=== PATIENT | female | born 1935 | race Caucasian/White ===

== ENCOUNTER 2020-08-15 10:02 | Outpatient (REF) | payer MEDICARE, SELFPAY ==
--- NOTE | 2020-08-15 10:08 | XR_ITS ---
EXAMINATION: XR KNEES, STANDING AP XR KNEE, LEFT CLINICAL INFORMATION: Pain left knee. COMPARISON: None TECHNIQUE: Standing AP view of both knees is performed. Additional lateral and axial patella views of the left knee are obtained. FINDINGS: Left knee shows narrowing medial compartment. There is borderline marginal spur medial tibial plateau. There is no definite erosive change and no visible chondrocalcinosis. Lateral view shows small suprapatellar effusion. The bony mineralization is normal. There is no destructive process. Axial view patella shows no lateralization or tilting. The right knee is unremarkable. No significant joint narrowing and no subchondral sclerosis or erosive change. IMPRESSION: Mild narrowing left medial knee joint compartment with small suprapatellar effusion.
== END 2020-08-15 10:03 | disposition home or self-care (01) ==
LOC: HO.XRAY 10:02
PROVIDERS: Visit Provider Orthopaedic Surgery
DX: M25.562 Pain in left knee (principal); M17.12 Unilateral primary osteoarthritis, left knee
CPT/HCPCS: 20610; 73560; 73565; 99202; 99204; J1100

== ENCOUNTER → 2020-09-19 12:20 | Outpatient (BNVA) | payer MEDICARE, SELFPAY | PROVIDERS: PCP Internal Medicine; Referring Provider Internal Medicine; Visit Provider Orthopaedic Surgery | DX: M95.8 Other specified acquired deformities of musculoskeletal system (principal); M17.12 Unilateral primary osteoarthritis, left knee | CPT/HCPCS: 99212 ==

== ENCOUNTER 2020-09-23 08:49 | Outpatient (REF) | payer MEDICARE, SELFPAY ==
--- NOTE | 2020-09-23 08:52 | MR_ITS ---
EXAMINATION: MR KNEE WITHOUT CONTRAST, LEFT CLINICAL INFORMATION: Congenital malformation of the lower limb. 3 weeks of sore left knee. No history of surgery. COMPARISON: None TECHNIQUE: MRI of the knee without contrast was performed using routine sequences on a high-field scanner. FINDINGS: MENISCI: Medial Meniscus: A complex tear of the posterior horn and body is primarily horizontal, extending the undersurface. Meniscal body is partially extruded. There is an undersurface flap fragment within the meniscotibial recess inferiorly. The posterior horn is markedly irregular and ill-defined at the root insertion, likely corresponding to a radial component. Lateral Meniscus: Marked undersurface fraying at the posterior horn near the root insertion. Additional free edge fraying is present at the body. LIGAMENTS: Cruciate: No discrete tears. Collateral: Edema signal around the MCL is likely reactive to the underlying meniscal abnormality. Collateral ligaments are intact. EXTENSOR MECHANISM: Intact ARTICULAR CARTILAGE/BONE: Patellofemoral Compartment: Mild to moderate nonuniform chondral thinning is present at the median ridge of the patella. At the inferior aspect of the trochlear groove, there is a 1.6 x 0.8 cm region of moderate partial-thickness cartilage loss and full-thickness chondral fissuring with underlying articular cortical irregularity. Medial Compartment: At the medial femoral condyle weightbearing surface, there is a a subchondral insufficiency fracture with an unstable 3 x 0.9 cm delaminated osteochondral fragment. Fluid signal undercuts this fragment. There is a cortical break along its lateral margin with step-off of 1 mm. This cortical break extends through the articular cartilage is a chondral fissure. There is marked surrounding marrow edema signal in the medial femoral condyle with cystic change and posteriorly. [id number] nonuniform articular cartilage loss is present at the medial femoral condyle medial tibial plateau weightbearing surfaces, most pronounced posteriorly. Lateral Compartment: Normal JOINT FLUID AND BURSAE: Small to moderate-sized joint effusion and Tejeda's cyst. MR/MR knee LT wo con IMPRESSION: 1. Complex, high-grade tear of the posterior horn and body of the medial meniscus with partial extrusion of the meniscal body. 2. Subchondral insufficiency fracture at the medial femoral condyle with a 3 x 0.9 cm of unstable osteochondral fragmentation/delamination and marked surrounding marrow edema. Moderate medial compartment arthrosis. 3. Mild patellofemoral compartment osteoarthritis. 4. Small to moderate-sized joint effusion and Tejeda's cyst
== END 2020-09-23 08:50 | disposition home or self-care (01) ==
LOC: HO.MRI 08:49
PROVIDERS: Visit Provider Orthopaedic Surgery
DX: M95.8 Other specified acquired deformities of musculoskeletal system (principal); Q74.2 Other congenital malformations of lower limb(s), including pelvic girdle
CPT/HCPCS: 73721

== ENCOUNTER → 2021-01-16 10:10 | Outpatient (BNVA) | payer MEDICARE, SELFPAY | PROVIDERS: Visit Provider Orthopaedic Surgery | DX: M17.12 Unilateral primary osteoarthritis, left knee (principal) | CPT/HCPCS: 20610; 99212; J1100 ==

== ENCOUNTER 2021-05-21 12:38 | Emergency (ER) | payer MEDICARE, SELFPAY ==
--- NOTE | 2021-05-21 | ECG_ITS ---
Test Reason : NAUSEA Blood Pressure : / mmHG Vent. Rate : 092 BPM Atrial Rate : 092 BPM P-R Int : 182 ms QRS Dur : 114 ms QT Int : 390 ms P-R-T Axes : 045 -72 011 degrees QTc Int : 482 ms Normal sinus rhythm Left axis deviation Low voltage QRS Right bundle branch block Abnormal ECG When compared with ECG of 08-SEP-2019 10:53, No significant change was found Referred By: Generic ED Physician Electronically Signed By:DINO CEVALLOS
[2021-05-21 13:01] VITALS: BP 168/83; PULSE 93; RESP 16; TEMP 36.2; O2SAT 98; BMI 22.6
--- NOTE | 2021-05-21 14:37 | ED_ITS ---
HPI - Nausea/Vomiting/Diarrhea General Chief complaint: Nausea/Vomiting/Diarrhea Stated complaint: NAUSEA DIARRHEA HIP PAIN Time Seen by Provider: 05/21/21 14:37 Source: patient Mode of arrival: ambulatory Limitations: no limitations History of Present Illness HPI Narrative: Patient with nausea and vomiting for past few days. She had this in the past with low sodium, potassium, magnesium. Now patient is on a diuretic with N/V/D and the concern is that she may have electrolyte abnormalities. MD elicited complaint: nausea, vomiting and diarrhea Pertinent past history: other (renal abnormalities and electrolyte abnormalities) Onset (ago): week(s) Description of vomiting: watery Description of diarrhea: semi-solid Associated nausea: Yes Associated abdominal pain: No Location of pain: none Exacerbating factors: other (HCTZ) Associated symptoms: weakness Related Data Home Medications Medication Instructions Recorded Confirmed amlodipine PO 08/15/20 09/19/20 gabapentin PO 08/15/20 09/19/20 amlodipine 10 mg-atorvastatin 20 1 tab PO DAILY 09/19/20 09/19/20 mg tablet methenamine hippurate 1 gram tablet 1 g PO BID 09/19/20 09/19/20 ondansetron 4 mg disintegrating 4 mg PO Q8H 09/19/20 09/19/20 tablet potassium chloride 10 mEq 10 meq PO DAILY 09/19/20 09/19/20 capsule,extended release pravastatin 20 mg tablet 20 mg PO DAILY 09/19/20 09/19/20 Previous Rx's Medication Instructions Recorded ondansetron HCl [Zofran] 4 mg PO Q8H PRN #10 tab 05/21/21 Allergies Allergy/AdvReac Type Severity Reaction Status Date / Time promethazine [PROMETHAZINE] AdvReac Unknown AGITATION Verified 09/19/20 13:04 Review of Systems Constitutional: Constitutional: Reports no additional constitutional c omplaints Eyes: Eyes: Reports no additional eye complaints ENT: Denies dizziness Cardiovascular: Cardiovascular: Reports no additional cardiovascular complaints Respiratory: Respiratory: Reports as per HPI Gastrointestinal: Gastrointestinal: Reports nausea Genitourinary: Genitourinary: Reports no additional female genitourinary complaints Musculoskeletal: Musculoskeletal: Reports no additional musculoskeletal complaints Integumentary/Breasts: Skin/Breast: Denies rash Neurologic: Reports system reviewed and no additional complaints, except as documented, Denies dizziness and Denies Sensory deficit (Neuro) Psychiatric: Psychiatric: Denies anxiety [facility] Past Medical History Medical History Arthritis of left knee Left knee pain Social History Social History Advance Directives: No Advance Directives Information Provided: Yes Current occupational status: retired Current occupation: [employer] Physical Exam Vital Signs: Vital Signs: Last Vital Signs Temp 97.2 F 05/21/21 13:01 Pulse 93 05/21/21 13:01 Resp 16 05/21/21 13:01 BP 168/83 H 05/21/21 13:01 Pulse Ox 98 05/21/21 13:01 Body Mass Index 22.6 Const: Other: elderly female General: healthy appearing Nutritional Appearance: average body habitus Orientation/consciousness: oriented to person and patient oriented x3 Limitations: no limitations HENMT: Head: Yes normal to inspection Ears: external ears normal General nose exam: Normal external nose present Mouth: Normal oral and palatal mucosa present and oropharynx normal Throat: Yes posterior oropharynx normal Eyes: General: appearance normal, both eyes and all related structures Neck: Other: supple Neck: Yes normal visual inspection Chest: Chest palpation & inspection: normal inspection of the chest Resp: Auscultation: clear to auscultation bilaterally Cardio: Jugular venous distension: no JVD Rate: regular rate Rhythm: regular rhythm Heart sounds: S1 normal heart sound present and S2 normal heart sound present GI: Inspection: Yes normal to inspection Palpation (GI): Soft to palpation, nontender and No hepatosplenomegaly present Auscultation: normal bowel sounds : General: Yes no CVA tenderness Back/Spine/Pelvis: Back: no CVA tenderness Skin: General skin exam: no rashes or lesions noted Neuro: General: oriented to person and patient oriented x3 Cranial nerves: Yes CN's II-XII intact bilaterally Motor exam (neuro): 5/5 motor strength present throughout Sensory Exam: No Sensory deficit (Neuro) Extrem: General: Yes normal to inspection Psych: Appearance: grossly normal Course Reevaluation(s) Reevaluation #1: patients labs are normal, will dc on zofran, clear liquid diet until diarhea stops Time: 15:42 MDM - Nausea/Vomiting/Diarrhea Lab Data Result diagrams: 05/21/21 15:09 05/21/21 15:09 Labs: Lab Results 05/21/21 05/21/21 05/21/21 Range/Units 15:09 15:09 15:09 WBC 4.8 (4.8-10.8) X10*3/uL RBC 3.92 L (4.20-5.50) X10*6/uL Hgb 13.2 (12.0-16.0) g/dl Hct 37.9 (37-47) % MCV 96.7 (80-98) fL MCH 33.7 H (27.0-33.0) pg MCHC 34.8 (31.0-35.0) g/dl RDW 11.9 (11.0-16.0) % Plt Count 194 (160-400) X10*3/uL MPV 9.2 L (9.4-12.3) fL Immature Gran % (Auto) 0.2 (0.0-0.4) % Neut % (Auto) 69.3 (45-73) % Lymph % (Auto) 22.3 (20-40) % [place] % (Auto) 7.2 (2-11) % Eos % (Auto) 0.6 (0-4) % Baso % (Auto) 0.4 (0-2) % Lymph # (Auto) 1.1 L (1.2-4.9) X10*3/uL [place] # (Auto) 0.4 (0.1-1.2) X10*3/uL Eos # (Auto) 0.0 (0.0-0.4) X10*3/uL Baso # (Auto) 0.0 (0.0-0.2) X10*3/uL Abs Immat Gran (auto) 0.01 (0.00-0.03) X10*3/uL Absolute Neuts (auto) 3.4 (2.0-8.3) X10*3/uL Absolute Nucleated RBC 0.000 (0.0-0.012) X10*3/uL Nucleated RBC % (auto) 0.0 (0.0-0.2) /100WBC Sodium 143 (135-145) mmol/L Potassium 4.4 (3.3-5.1) mmol/L Chloride 106 (96-108) mmol/L Carbon Dioxide 27 (22-29) mmol/L Anion Gap 14 (12-20) BUN 19 H (9-16) mg/dL Creatinine 0.80 (0.5-1.4) mg/dL Estim Creat Clear Calc 42.1 Estimated GFR > 60 Random Glucose 113 (60-115) mg/dL Calcium 9.5 9.4 (8.4-10.2) mg/dL Magnesium 1.8 (1.6-2.6) mg/dL Discharge Plan Discharge Clinical Impression: Gastroenteritis Patient Disposition: Home, Self-Care Instructions: Gastroenteritis (ED) Prescriptions: New ondansetron HCl [Zofran] 4 mg tablet 4 mg PO Q8H PRN (Reason: nausea and vomiting) Qty: 10 RF: 0 No Action amlodipine PO RF: 0 gabapentin PO RF: 0 potassium chloride 10 mEq capsule, extended release 10 meq PO DAILY RF: 0 pravastatin 20 mg tablet 20 mg PO DAILY RF: 0 amlodipine-atorvastatin 10-20 mg tablet 1 tab PO DAILY RF: 0 methenamine hippurate 1 gram tablet 1 g PO BID RF: 0 ondansetron 4 mg tablet,disintegrating 4 mg PO Q8H RF: 0 Referrals: Wero Elaine MD [Primary Care Provider] - 5 days
[2021-05-21 15:13] LABS: MANUAL DIFF FLAG NO
[2021-05-21 15:15] LABS: Basophils Percent Auto 0.4 % (0-2); Eosinophils Percent Auto 0.6 % (0-4); Hematocrit 37.9 % (37-47); Hemoglobin 13.2 g/dl (12.0-16.0); Imm Gran Abs Auto 0.01 X10*3/uL (0.00-0.03); Imm Gran Pct Auto 0.2 % (0.0-0.4); Lymphocytes Absolute Auto 1.1 X10*3/uL (1.2-4.9); Lymphocytes Percent Auto 22.3 % (20-40); Mean Corpuscular HGB Conc 34.8 g/dl (31.0-35.0); Mean Corpuscular Hemoglobin 33.7 pg (27.0-33.0); Mean Corpuscular Volume 96.7 fL (80-98); Mean Platelet Volume 9.2 fL (9.4-12.3); Monocytes Absolute Auto 0.4 X10*3/uL (0.1-1.2); Monocytes Percent Auto 7.2 % (2-11); Neutrophils Absolute Auto 3.4 X10*3/uL (2.0-8.3); Neutrophils Percent Auto 69.3 % (45-73); Platelet Count 194 X10*3/uL (160-400); Red Blood Count 3.92 X10*6/uL (4.20-5.50); Red Cell Distribution Width 11.9 % (11.0-16.0); White Blood Count 4.8 X10*3/uL (4.8-10.8)
[2021-05-21 15:35] LABS: Anion Gap 14 (12-20); Blood Urea Nitrogen 19 mg/dL (9-16); Calcium 9.4 mg/dL (8.4-10.2); Carbon Dioxide 27 mmol/L (22-29); Chloride 106 mmol/L (96-108); Creatinine Clr Calc Pharmacy 42.1; Estimated Glomerular Filt Rate > 60; Glucose Random 113 mg/dL (60-115); Potassium 4.4 mmol/L (3.3-5.1); Sodium 143 mmol/L (135-145)
[2021-05-21 15:36] LABS: Calcium 9.5 mg/dL (8.4-10.2); Magnesium 1.8 mg/dL (1.6-2.6)
== END 2021-05-21 16:00 | disposition home or self-care (01) ==
PROVIDERS: Emergency Provider Emergency Medicine; PCP Internal Medicine
DX: K52.9 Noninfective gastroenteritis and colitis, unspecified (principal); R11.2 Nausea with vomiting, unspecified
CPT/HCPCS: 36415; 80048; 82310; 83735; 85025; 93005; 99283

== ENCOUNTER 2021-08-31 09:44 | Observation (INO) | payer MEDICARE, SELFPAY ==
[2021-08-31] VITALS (10 sets, daily range): BP systolic 168–220; BP diastolic 82–115; PULSE 64–82; RESP 14–20; TEMP 36.7; O2SAT 97–99; BMI 22.4
--- NOTE | ~2021-08-31 | CT_ITS ---
EXAMINATION: CT ANGIOGRAM NECK WITH CONTRAST CT ANGIOGRAM BRAIN WITH CONTRAST CLINICAL INFORMATION: Headache/neck pain since 1:00 PM yesterday. COMPARISON: Head CT performed earlier today.. TECHNIQUE: Test bolus sequences followed by intravenous administration 100 mL of Omnipaque 350. Helical imaging was performed in the axial plane from the thoracic inlet to the skull vertex. Delayed postcontrast imaging of the head was also performed. The data was processed at the polysomnography technologist workstation for generation of MIP sequences. Angled MIPs and volume rendered reformatted images were also generated at an offline 3D workstation. Stenoses are assessed in accordance with NASCET criteria unless otherwise indicated. This CT examination was performed using dose optimization techniques as appropriate, variously including the following: *Automated exposure control *Adjustment of mA and/or kV according to patient size (this includes techniques or standardized protocols for targeted exams where dose is matched to indication/reason for exam; i.e. extremities or head) *Use of iterative reconstruction technique DLP: 1421 mGy-cm FINDINGS: Head CT: There is no intracranial hemorrhage, extra-axial collection, mass effect, or CT evidence of territorial infarction. Moderate patchy hypoattenuation in the cerebral white matter and central sander most likely represents sequela of chronic microangiopathy. The ventricles and sulci are commensurate. No hydrocephalus is seen. There is no abnormal enhancement. Dural venous sinuses are normally opacified. The extracranial structures are within normal limits. Neck CTA: The aortic arch and great vessel origins are patent. Atheromatous changes are seen at the bilateral carotid bifurcations but without significant stenosis. The bilateral cervical ICA segments are patent. Both vertebral arteries are patent. Head CTA: No intracranial aneurysm is seen. The intracranial internal carotid arteries appear normal. The anterior cerebral artery, anterior communicating artery, and middle cerebral arteries appear normal. The intradural vertebral arteries and basilar artery appear normal. The posterior cerebral arteries appear normal. No aneurysm is seen. Non-vascular findings: Heterogeneous attenuation is seen throughout the thyroid gland. Dystrophic calcifications are also present. There is no consolidation within the upper lungs. Multilevel degenerative changes are seen within the spine. CT/CT angio head neck IMPRESSION: CT head: No intracranial hemorrhage or large acute infarction. Background changes of chronic microangiopathy. CTA neck: No hemodynamically significant stenosis in the major arteries of the neck. CTA head: No large vessel occlusion or significant stenosis within the intracranial circulation.
--- NOTE | ~2021-08-31 | XR_ITS ---
EXAMINATION: XR CHEST CLINICAL INFORMATION: Headache with nausea and generalized fatigue. COMPARISON: No similar priors. TECHNIQUE: AP view of the chest was obtained. FINDINGS: Normal appearance of the cardiomediastinal silhouette aside from a tortuous thoracic aorta with atherosclerotic disease. The lung volumes are slightly decreased with diffuse bronchovascular crowding and subsegmental atelectasis in the lung bases. No focal consolidation, pleural effusion or pneumothorax. No acute osseous abnormalities. Thoracic spondylosis. XR/XR chest 1V IMPRESSION: Mild subsegmental atelectasis in the lung bases. Otherwise, clear lungs.
--- NOTE | ~2021-08-31 | CT_ITS ---
EXAMINATION: CT HEAD WITHOUT CONTRAST CLINICAL INFORMATION: Headache, nausea and generalized fatigue. COMPARISON: No similar priors. TECHNIQUE: Contiguous axial imaging was performed from the skull base to vertex without intravenous administration of contrast. This CT examination was performed using dose optimization techniques as appropriate, variously including the following: *Automated exposure control *Adjustment of mA and/or kV according to patient size (this includes techniques or standardized protocols for targeted exams where dose is matched to indication/reason for exam; i.e. extremities or head) *Use of iterative reconstruction technique DLP: 557 mGy-cm FINDINGS: There is no evidence of acute intracranial hemorrhage or edematous territorial infarction. A few foci of hypoattenuation in the periventricular and deep white matter are consistent with mild microangiopathy. Loyns-white matter differentiation is preserved. Proportional prominence of the ventricles and sulcal spaces. No evidence for obstructive hydrocephalus. No abnormal mass effect or midline shift. No extra-axial fluid collections. No acute soft tissue or osseous abnormalities. Mild mucosal thickening of the ethmoid air cells. Otherwise, paranasal sinuses and mastoids are clear. CT/CT head/brain wo con IMPRESSION: No evidence of acute intracranial hemorrhage or edematous territorial infarction.
--- NOTE | 2021-08-31 10:16 | ECG_ITS ---
Test Reason : GENERAL MEDICINE Blood Pressure : / mmHG Vent. Rate : 062 BPM Atrial Rate : 062 BPM P-R Int : 200 ms QRS Dur : 134 ms QT Int : 460 ms P-R-T Axes : 036 -66 011 degrees QTc Int : 466 ms Normal sinus rhythm Left anterior fascicular block Right bundle branch block Bifascicular block Abnormal ECG Heart rate has decreased Referred By: Marian Garsia Electronically Signed By:KEISHA LY MD
[2021-08-31] MEDS: Ondansetron ODT 4 MG TAB.RAPDIS TRANSLINGU (10:33)
[2021-08-31] MEDS: hydroCHLOROthiazide 25 MG TABLET PO (10:34)
[2021-08-31 10:57] LABS: MANUAL DIFF FLAG NO
[2021-08-31 10:59] LABS: Basophils Percent Auto 0.2 % (0-2); Eosinophils Absolute Auto 0.1 X10*3/uL (0.0-0.4); Hematocrit 42.8 % (37.0-47.0); Imm Gran Abs Auto 0.01 X10*3/uL (0.00-0.03); Imm Gran Pct Auto 0.2 % (0.0-0.4); Lymphocytes Absolute Auto 1.2 X10*3/uL (1.2-4.9); Lymphocytes Percent Auto 23.6 % (20-40); Mean Corpuscular Hemoglobin 32.8 pg (27.0-33.0); Mean Corpuscular Volume 93.7 fL (80.0-98.0); Mean Platelet Volume 9.6 fL (9.4-12.3); Monocytes Absolute Auto 0.4 X10*3/uL (0.1-1.2); Neutrophils Absolute Auto 3.39 x10*3/uL (2.0-8.3); Platelet Count 183 X10*3/uL (160-400); Red Blood Count 4.57 X10*6/uL (4.20-5.50); Red Cell Distribution Width 11.3 % (11.0-16.0)
[2021-08-31 11:01] LABS: Appearance Urine HAZY; Color Urine STRAW; Glucose Urine UA NEG (NEG); Leukocyte Esterase Urine 1+ (NEG); Nitrite Urine NEG (NEG); PH 7.5 (5.0-8.0); Specific Gravity - Urine 1.015 (1.005-1.025); UACC Culture Trigger YES; Urine Blood NEG (NEG); Urine Ketones NEG (NEG); Urine Protein 1+ MG/DL (NEG-TRACE)
[2021-08-31 11:04] LABS: Prothrombin Time 11.8 SEC (9.9-13.0)
[2021-08-31 11:06] LABS: COVID-19 Test Positive (Negative)
--- NOTE | 2021-08-31 11:14 | ED.HA ---
HPI - Headache General Chief Complaint: Recheck/Abnormal Lab/Rx Stated Complaint: GOMEZ,HTN,NAUS,+COVID 2 WKS,FULL VACC& ANTIBODY IV Time Seen by Provider: 08/31/21 10:03 Source: patient and EMS Mode of arrival: EMS Limitations: other (Poor historian) History of Present Illness HPI Narrative: 86-year-old female with a past medical history of hypertension, hyperlipidemia, breast cancer status post right-sided lumpectomy, chronic hyponatremia, arthritis, migraine headaches who is currently COVID positive she reports that she became COVID positive in the beginning of July and she just finished her quarantine yesterday although that does not add up who is presenting to the ED via EMS with complaints of a migraine headache with associated nausea that started yesterday after she ate lunch at 13:00. She reports that she used to have frequent migraine headaches years ago although she has not had 1 in the past few years although this feels like her usual migraine headaches that she had years ago. She reports the migraine headache as sharp and achy in the occipital/neck area. She reports associated nausea and vomiting. She also reports she feels days not actually dizzy she does not know how to actually explain it just feels dazed. She reports that she was vaccinated with the [facility] vaccine in June. She denies any dizziness, changes in vision, hearing changes, recent falls or head trauma, being on any blood thinners, neck stiffness, chest pain or shortness of breath, dyspnea on exertion, orthopnea, palpitations, vomiting, diarrhea, abdominal pain, back pain, dysuria, hematuria, black or bloody stools, lower extremity edema, calf tenderness, recent travel or sick contacts, history of DVT or PE, recent travel on a long plane/train/car, any estrogen usage, recent surgery or immobilization or any other symptoms complaints or concerns at this time. Elton at [phone] elicited complaint: headache and migraine Pertinent past history: migraines and hypertension Onset (ago): day(s) (Started yesterday at 13:00 after lunch) Onset description: gradually Location: occipital and neck Severity: moderate Quality & Timing: aching, sharp, constant and similar to previous headaches Exacerbating factors: none Relieving factors: nothing Context: other (After eating lunch) Associated symptoms: nausea Treatments prior to arrival: none Related Data Home Medications Medication Instructions Recorded Confirmed amlodipine PO 08/15/20 09/19/20 methenamine hippurate 1 gram tablet 1 g PO BID 09/19/20 09/19/20 ondansetron 4 mg disintegrating 4 mg PO Q8H 09/19/20 09/19/20 tablet potassium chloride 10 mEq 10 meq PO Q48H 09/19/20 09/19/20 capsule,extended release pravastatin 20 mg tablet 20 mg PO DAILY 09/19/20 09/19/20 benazepril 10 mg tablet 1 tab PO DAILY 08/31/21 ciclopirox 0.77 % topical cream appl TOPICAL 08/31/21 gabapentin 300 mg capsule mg PO 08/31/21 Previous Rx's Medication Instructions Recorded ondansetron HCl 4 mg tablet 4 mg PO Q8H PRN #10 tab 05/21/21 (Zofran) Allergies Allergy/AdvReac Type Severity Reaction Status Date / Time promethazine [PROMETHAZINE] AdvReac Unknown AGITATION Verified 08/31/21 09:55 Review of Systems Review of Systems: Constitutional : No changes in activity, No lethargy, No recent prior head injury, No agitation, No increased fussiness ENT/Mouth : No Ear Pain, No Nasal discharge/drainage Eyes: No Eye Pain, No Swelling, No Redness, No Foreign Body, No Vision Changes Cardiovascular : No Chest Pain, No SOB Respiratory : No Cough Gastrointestinal : + Nausea, No Vomiting, No abdominal Pain Genitourinary : No Dysuria, No Urinary Frequency, No Urinary Incontinence, No Urgency, No Flank Pain Musculoskeletal :+ neck pain, No joint pain, No neck stiffness, No back pain/injury Skin : No lacerations Neuro : No unsteady gait, No Paresthesias, No Loss of Consciousness, No altered mental status, No dizziness, + Headache and feeling dazed Denies past medical history of HIV, recent trauma, coagulopathy, recent spinal/ epidural procedure, new medication, URI symptoms, close contacts with similar symptoms, tick bite, or known CO2 exposure. Yes all other systems are reviewed and are negative [facility] Past Medical History Attestation statement: The following information was validated with the patient. Medical History Arthritis of left knee Breast cancer Left knee pain Surgical History History of appendectomy Social History Social History Alcohol intake: never Smoked in Last 30 Days: No Use of substances other than those prescribed or required for medical reasons: No Advance Directives: No Advance Directives Information Provided: No Current occupational status: retired Current occupation: [employer] Physical Exam Vital Signs: Vital Signs: Last Vital Signs Temp 98.0 F 08/31/21 15:56 Pulse 71 08/31/21 16:18 Resp 20 08/31/21 13:10 BP 199/88 H 08/31/21 16:53 Pulse Ox 99 08/31/21 13:10 Body Mass Index 22.4 Vital signs have been reviewed as normal and appeared to be correct. Blood pressure hypertensive 218/94. Heart rate normal. Respiration rate normal. Temperature normal. Oxygen saturation normal. Appearance: Alert. Oriented X3. No acute distress. Head: Normal external exam. Normocephalic. Atraumatic. Able to rotate head bilaterally. Eyes: PERRLA. EOMI. No nystagmus noted. Conjunctiva and sclera normal. Eyelids normal. Corneal reflex normal. ENT: EAC normal. TM's Normal. Hearing normal. Pharynx normal. Uvula midline. tongue midline. Moist mucous membranes. No trismus noted. No drooling noted. No muffled voice noted. Neck: Normal inspection. Neck supple. FROM. No adenopathy. Thyroid Normal. No meningeal signs. No neck mass noted. Nontender. No rashes/lesion/induration/fluctuance or signs of infection noted. Patient is neuro intact bilaterally and distally on all 4 extremities. Reflexes intact bilaterally and distally in all 4 extremities. CVS: Normal heart rate and rhythm. Heart sound normal. No murmurs noted. Pulses normal throughout. Respiratory: No respiratory distress. Painless inspiration. Breath sounds normal. No wheezes/rales/rhonchi noted. Chest nontender. No accessory muscle usage noted or decreased air movement noted. Back: Full range of motion noted. Skin: Skin warm and dry. Normal skin color. Normal skin turgor. No rashes/lesions/lacerations noted. Extremities: Extremities exhibit normal range of motion. Extremities nontender. Able to shrug shoulders bilaterally and keep up against resistance. Neuro: Oriented X 3. No motor deficit. No sensory deficit. Reflexes normal. Moving all extremities. No focal motor deficits. Cranial nerves II-XI intact bilaterally. Facial strength normal. Normal cognition. Speech normal. Gait normal. Strength 5/5 throughout. No pronator drift. No tremor noted. No fasciculations noted. Muscle tone normal throughout. No asterixis noted. [id number]-[id number] test normal. Heel to martinez test normal. Tandem gait normal. Does not sway with eyes open. Romberg test negative. Rapid alternating movement upper extremity normal. Rapid alternating movement lower extremity normal. Hand drop from overhead-Mrs. face. No rigidity noted. NIHSS score 0. NIH Stroke Scale Internal: Initial- Upon Arrival Time: 10:16 Level of Consciousness: Alert Level of Consciousness Questions: Answers both questions correctly Level of Consciousness Commands: Performs both tasks correctly Best Gaze: Normal Visual: No visual loss Facial Palsy: Normal Motor Arm (Right): No drift Motor Arm (Left): No drift Motor Leg (Right): No drift Motor Leg (Left): No drift Limb Ataxia: Absent Sensory: Normal Best Language: No aphasia Dysarthia: Normal Extinction and Inattention: No abnormality Score: 0 Course Course Course Narrative: 10:16am - 86-year-old female with a past medical history of hypertension, hyperlipidemia, breast cancer status post right-sided lumpectomy, chronic hyponatremia, arthritis, migraine headaches recently diagnosed with COVID in July 2021 despite being vaccinated presenting to the ED via EMS with complaints of a migraine headache with associated nausea and vomiting that started yesterday after she ate lunch at 13:00. She reports that she used to have frequent migraine headaches years ago although she has not had 1 in the past few years although this feels like her usual migraine headaches that she had years ago. She reports the migraine headache as sharp and achy in the occipital/neck area. She reports associated nausea. She also reports she feels days not actually dizzy she does not know how to actually explain it just feels dazed. On exam patient is alert and oriented x3. Not in any acute distress. No focal neuro deficit noted. Normal steady gait. NIH SS score 0. Patient has non disabling symptoms at this time therefore not a tPA candidate at this time. Lungs clear auscultation. CV RRR. Abdomen is soft and nontender. No CVA tenderness is noted. Neck is soft and nontender with full range of motion no meningeal signs. No lower extremity edema or calf tenderness is noted. Plan: Labs, EKG, CT scan of brain, CTA of head and neck, provide 4 mg of Zofran and 25 mg of hydrochlorothiazide that the patient is prescribed and re-evaluate. Reevaluation(s) Reevaluation #1: - labs returned patient with an elevated random glucose at 01:16. Troponin elevated at 9.2. BNP 105. Patient with +1 leukocytes and UA although no evidence of UTI due to she has 3+ epithelial cells. - She is also still COVID positive. - CT scan of brain negative for any acute processes. - chest x-ray revealed mild segmental atelectasis in the lung bases otherwise clear lungs. - still awaiting CT of head and neck with IV contrast - patient will have a repeat troponin at 13:50pm - will re-evaluate Time: 12:23 Reevaluation #2: - repeat troponin doubled from 9.2-15 although patient denies any chest pain and she does not have any EKG changes - CTA of head and neck with IV contrast no hemodynamically significant stenosis in the major arteries of the neck and no large vessel occlusion or significant stenosis within the intracranial circulation - although due to patient's elevated troponin will plan to admit discussed this case with Maia Raymundo PA-C. Patient understands agrees with this plan. Time: 14:49 Reevaluation #3: - Maia Raymundo PA-C to admit at this time. Patient understands agrees with this plan. Patient's Elton at [phone] was updated and he understands and agrees with the plan as well. Time: 17:07 [facility] - Headache Medical Records Attestation: I reviewed the patient's medical records. Lab Data Attestation: I reviewed the patient's lab results. Result diagrams: 08/31/21 10:51 08/31/21 10:51 Labs: Lab Results 08/31/21 08/31/21 08/31/21 Range/Units 10:51 10:51 10:51 WBC 5.0 (4.8-10.8) X10*3/uL RBC 4.57 (4.20-5.50) X10*6/uL Hgb 15.0 (12.0-16.0) g/dl Hct 42.8 (37.0-47.0) % MCV 93.7 (80.0-98.0) fL MCH 32.8 (27.0-33.0) pg MCHC 35.0 (31.0-35.0) g/dl RDW 11.3 (11.0-16.0) % Plt Count 183 (160-400) X10*3/uL MPV 9.6 (9.4-12.3) fL Immature Gran % (Auto) 0.2 (0.0-0.4) % Neut % (Auto) 68.0 (45-73) % Lymph % (Auto) 23.6 (20-40) % Tucker % (Auto) 7.0 (2-11) % Eos % (Auto) 1.0 (0-4) % Baso % (Auto) 0.2 (0-2) % Lymph # (Auto) 1.2 (1.2-4.9) X10*3/uL Tucker # (Auto) 0.4 (0.1-1.2) X10*3/uL Eos # (Auto) 0.1 (0.0-0.4) X10*3/uL Baso # (Auto) 0.0 (0.0-0.2) X10*3/uL Abs Immat Gran (auto) 0.01 (0.00-0.03) X10*3/uL Absolute Neuts (auto) 3.39 (2.0-8.3) x10*3/uL Absolute Nucleated RBC 0.000 (0.0-0.012) X10*3/uL Nucleated RBC % (auto) 0.0 (0.0-0.2) /100WBC PT 11.8 (9.9-13.0) SEC INR 1.0 (0.9-1.1) Sodium 137 (135-145) mmol/L Potassium 4.0 (3.3-5.1) mmol/L Chloride 99 (96-108) mmol/L Carbon Dioxide 29 (22-29) mmol/L Anion Gap 13 (12-20) BUN 11 (9-16) mg/dL Creatinine 0.75 (0.5-1.4) mg/dL Estim Creat Clear Calc 44.1 Estimated GFR > 60 Random Glucose 116 H (60-115) mg/dL Calcium 9.4 (8.4-10.2) mg/dL Magnesium 1.8 (1.6-2.6) mg/dL Total Bilirubin 0.8 (0.0-1.0) mg/dL AST 30 (5-31) U/L ALT 31 (0-31) U/L Alkaline Phosphatase 82 (39-117) U/L Troponin I High Sens (<3.5-17.0) ng/L B-Natriuretic Peptide (<100) pg/mL Total Protein 7.0 (6.5-8.0) g/dL Albumin 4.5 (3.5-5.0) g/dL Urine Color Urine Appearance Urine pH (5.0-8.0) Ur Specific [place] (1.005-1.025) Urine Protein (NEG-TRACE) MG/DL Urine Glucose (UA) (NEG) MG/DL Urine Ketones (NEG) MG/DL Urine Blood (NEG) Urine Nitrite (NEG) Ur Leukocyte Esterase (NEG) Urine RBC (0) /HPF Urine WBC (0-4) /HPF Ur Squamous Epith Cells /LPF Urine Bacteria /LPF COVID-19 (NELLY) (Negative) COVID-19 Clin Com 08/31/21 08/31/21 08/31/21 Range/Units 10:51 10:52 10:52 WBC (4.8-10.8) X10*3/uL RBC (4.20-5.50) X10*6/uL Hgb (12.0-16.0) g/dl Hct (37.0-47.0) % MCV (80.0-98.0) fL MCH (27.0-33.0) pg MCHC (31.0-35.0) g/dl RDW (11.0-16.0) % Plt Count (160-400) X10*3/uL MPV (9.4-12.3) fL Immature Gran % (Auto) (0.0-0.4) % Neut % (Auto) (45-73) % Lymph % (Auto) (20-40) % Tucker % (Auto) (2-11) % Eos % (Auto) (0-4) % Baso % (Auto) (0-2) % Lymph # (Auto) (1.2-4.9) X10*3/uL Tucker # (Auto) (0.1-1.2) X10*3/uL Eos # (Auto) (0.0-0.4) X10*3/uL Baso # (Auto) (0.0-0.2) X10*3/uL Abs Immat Gran (auto) (0.00-0.03) X10*3/uL Absolute Neuts (auto) (2.0-8.3) x10*3/uL Absolute Nucleated RBC (0.0-0.012) X10*3/uL Nucleated RBC % (auto) (0.0-0.2) /100WBC PT (9.9-13.0) SEC INR (0.9-1.1) Sodium (135-145) mmol/L Potassium (3.3-5.1) mmol/L Chloride (96-108) mmol/L Carbon Dioxide (22-29) mmol/L Anion Gap (12-20) BUN (9-16) mg/dL Creatinine (0.5-1.4) mg/dL Estim Creat Clear Calc Estimated GFR Random Glucose (60-115) mg/dL Calcium (8.4-10.2) mg/dL Magnesium (1.6-2.6) mg/dL Total Bilirubin (0.0-1.0) mg/dL AST (5-31) U/L ALT (0-31) U/L Alkaline Phosphatase (39-117) U/L Troponin I High Sens 9.2 (<3.5-17.0) ng/L B-Natriuretic Peptide 105 H (<100) pg/mL Total Protein (6.5-8.0) g/dL Albumin (3.5-5.0) g/dL Urine Color STRAW Urine Appearance HAZY Urine pH 7.5 (5.0-8.0) Ur Specific [place] 1.015 (1.005-1.025) Urine Protein 1+ H (NEG-TRACE) MG/DL Urine Glucose (UA) NEG (NEG) MG/DL Urine Ketones NEG (NEG) MG/DL Urine Blood NEG (NEG) Urine Nitrite NEG (NEG) Ur Leukocyte Esterase 1+ H (NEG) Urine RBC 0 (0) /HPF Urine WBC 1-4 (0-4) /HPF Ur Squamous Epith Cells 3+ /LPF Urine Bacteria 4+ /LPF COVID-19 (NELLY) Positive A (Negative) COVID-19 Clin Com See Note 08/31/21 Range/Units 14:06 WBC (4.8-10.8) X10*3/uL RBC (4.20-5.50) X10*6/uL Hgb (12.0-16.0) g/dl Hct (37.0-47.0) % MCV (80.0-98.0) fL MCH (27.0-33.0) pg MCHC (31.0-35.0) g/dl RDW (11.0-16.0) % Plt Count (160-400) X10*3/uL MPV (9.4-12.3) fL Immature Gran % (Auto) (0.0-0.4) % Neut % (Auto) (45-73) % Lymph % (Auto) (20-40) % Tucker % (Auto) (2-11) % Eos % (Auto) (0-4) % Baso % (Auto) (0-2) % Lymph # (Auto) (1.2-4.9) X10*3/uL Tucker # (Auto) (0.1-1.2) X10*3/uL Eos # (Auto) (0.0-0.4) X10*3/uL Baso # (Auto) (0.0-0.2) X10*3/uL Abs Immat Gran (auto) (0.00-0.03) X10*3/uL Absolute Neuts (auto) (2.0-8.3) x10*3/uL Absolute Nucleated RBC (0.0-0.012) X10*3/uL Nucleated RBC % (auto) (0.0-0.2) /100WBC PT (9.9-13.0) SEC INR (0.9-1.1) Sodium (135-145) mmol/L Potassium (3.3-5.1) mmol/L Chloride (96-108) mmol/L Carbon Dioxide (22-29) mmol/L Anion Gap (12-20) BUN (9-16) mg/dL Creatinine (0.5-1.4) mg/dL Estim Creat Clear Calc Estimated GFR Random Glucose (60-115) mg/dL Calcium (8.4-10.2) mg/dL Magnesium (1.6-2.6) mg/dL Total Bilirubin (0.0-1.0) mg/dL AST (5-31) U/L ALT (0-31) U/L Alkaline Phosphatase (39-117) U/L Troponin I High Sens 15.0 D (<3.5-17.0) ng/L B-Natriuretic Peptide (<100) pg/mL Total Protein (6.5-8.0) g/dL Albumin (3.5-5.0) g/dL Urine Color Urine Appearance Urine pH (5.0-8.0) Ur Specific [place] (1.005-1.025) Urine Protein (NEG-TRACE) MG/DL Urine Glucose (UA) (NEG) MG/DL Urine Ketones (NEG) MG/DL Urine Blood (NEG) Urine Nitrite (NEG) Ur Leukocyte Esterase (NEG) Urine RBC (0) /HPF Urine WBC (0-4) /HPF Ur Squamous Epith Cells /LPF Urine Bacteria /LPF COVID-19 (NELLY) (Negative) COVID-19 Clin Com Imaging Data Chest x-ray: Attestation: I personally reviewed and interpreted this imaging study as follows: Radiologist's impression: FINDINGS: Normal appearance of the cardiomediastinal silhouette aside from a tortuous thoracic aorta with atherosclerotic disease. The lung volumes are slightly decreased with diffuse bronchovascular crowding and subsegmental atelectasis in the lung bases. No focal consolidation, pleural effusion or pneumothorax. No acute osseous abnormalities. Thoracic spondylosis. XR/XR chest 1V IMPRESSION: Mild subsegmental atelectasis in the lung bases. Otherwise, clear lungs. CT scan of brain without contrast: Attestation: I personally reviewed and interpreted this imaging study as follows: Radiologist's impression: FINDINGS: There is no evidence of acute intracranial hemorrhage or edematous territorial infarction. A few foci of hypoattenuation in the periventricular and deep white matter are consistent with mild microangiopathy. Lyons-white matter differentiation is preserved. Proportional prominence of the ventricles and sulcal spaces. No evidence for obstructive hydrocephalus. No abnormal mass effect or midline shift. No extra-axial fluid collections. No acute soft tissue or osseous abnormalities. Mild mucosal thickening of the ethmoid air cells. Otherwise, paranasal sinuses and mastoids are clear. ? CT/CT head/brain wo con IMPRESSION: No evidence of acute intracranial hemorrhage or edematous territorial infarction. CT of head and neck: Attestation: I personally reviewed and interpreted this imaging study as follows: Radiologist's impression: FINDINGS: Head CT: There is no intracranial hemorrhage, extra-axial collection, mass effect, or CT evidence of territorial infarction. Moderate patchy hypoattenuation in the cerebral white matter and central sander most likely represents sequela of chronic microangiopathy. The ventricles and sulci are commensurate. No hydrocephalus is seen. There is no abnormal enhancement. Dural venous sinuses are normally opacified. The extracranial structures are within normal limits. Neck CTA: The aortic arch and great vessel origins are patent. Atheromatous changes are seen at the bilateral carotid bifurcations but without significant stenosis. The bilateral cervical ICA segments are patent. Both vertebral arteries are patent. Head CTA: No intracranial aneurysm is seen. The intracranial internal carotid arteries appear normal. The anterior cerebral artery, anterior communicating artery, and middle cerebral arteries appear normal. The intradural vertebral arteries and basilar artery appear normal. The posterior cerebral arteries appear normal. No aneurysm is seen. Non-vascular findings: Heterogeneous attenuation is seen throughout the thyroid gland. Dystrophic calcifications are also present. There is no consolidation within the upper lungs. Multilevel degenerative changes are seen within the spine. CT/CT angio head neck IMPRESSION: CT head: No intracranial hemorrhage or large acute infarction. Background changes of chronic microangiopathy. ? CTA neck: No hemodynamically significant stenosis in the major arteries of the neck. ? CTA head: No large vessel occlusion or significant stenosis within the intracranial circulation. ECG Data Attestation: I personally reviewed and interpreted this ECG as follows: ECG interpretation date: 08/31/21 ECG interpretation time: 10:33 Interpretation: Normal sinus rhythm with a ventricular rate of 62 with a left axis deviation a right bundle branch block no acute ischemic changes are noted. Similar compared to prior EKG on 05/21/2021 Critical Care Time Critical Care Time Critical Care Time: Yes Total Critical Care Time: 60 Attestation: I personally attest to this time spent taking care of the patient Discharge Plan Discharge Clinical Impression: Dizziness, Hypertension, Headache, Nausea & vomiting, Elevated troponin Patient Disposition: Admitted As Inpatient
[2021-08-31 11:26] LABS: Alanine Aminotransferase 31 U/L (0-31); Albumin Level 4.5 g/dL (3.5-5.0); Alkaline Phosphatase 82 U/L (39-117); Anion Gap 13 (12-20); Aspartate Amino Transferase 30 U/L (5-31); Bilirubin Total 0.8 mg/dL (0.0-1.0); Blood Urea Nitrogen 11 mg/dL (9-16); Calcium 9.4 mg/dL (8.4-10.2); Carbon Dioxide 29 mmol/L (22-29); Chloride 99 mmol/L (96-108); Creatinine Clr Calc Pharmacy 44.1; Estimated Glomerular Filt Rate > 60; Glucose Random 116 mg/dL (60-115); Magnesium 1.8 mg/dL (1.6-2.6); Sodium 137 mmol/L (135-145)
[2021-08-31 11:35] LABS: B Type Natriuretic Peptide 105 pg/mL (<100); Troponin-I High Sensitivity 9.2 ng/L (<3.5-17.0)
[2021-08-31 12:17] LABS: Bacteria Urine 4+ /LPF; RBC Urine 0 /HPF (0); Squamous Epithelial Cell Urine 3+ /LPF
[2021-08-31] MEDS: iohexoL 350 MG/ML 100 ML INFUS..BTL 70 ML IV (12:35)
[2021-08-31] MEDS: Acetaminophen 325 MG TABLET 975 MG PO (13:32)
[2021-08-31] MEDS: SUMAtriptan succinate 6 MG/0.5 ML VIAL SUBCUT (13:37)
--- NOTE | 2021-08-31 14:20 | PC.NURSE ---
Addendum entered by Arlen Acosta RN 08/31/21 14:24: daughter also reports pt has a hx dementia and has difficulty caring for her recently as she has been angry and difficult to redirect. Original Note: Macie (daughter and health care proxy) called today to speak with this RN to inform this RN of pts kidney condition that depletes her electrolytes
[2021-08-31] MEDS: amLODIPine Besylate 10 MG TABLET PO (16:18)
--- NOTE | 2021-08-31 17:01 | P.HPHOSP_ITS ---
History of Present Illness Date of Service: 08/31/21 Attending physician on admission: Olu Mitchell Chief Complaint: headache This is an 86-year-old female presents to the emergency department today with complaints of headache. Patient states yesterday she was not feeling well and had a headache. She went to bed early but her headache was still present this morning when she woke up. Initially her headache was located in the back of her neck and radiated up to the top of her head, now it is located primarily in the frontal region. She denies any blurry vision, double vision, chest pain, shortness of breath, dizziness or feeling lightheaded. Her initial blood pressure was elevated at 218/94. She received dose of her home hydrochlorothiazide as well as Norvasc and her blood pressure has improved to 180s. She underwent CT scan of the head and head and neck CTA which showed no acute abnormalities. She also tested positive for COVID-19. She states that she initially tested positive for COVID-19 in early July but was minimally symptomatic at that time. Review of Systems Review of Systems: Yes all other systems are reviewed and are negative Constitutional: Constitutional: Denies chills and Denies fever(s) Cardiovascular: Cardiovascular: Denies chest pain Respiratory: Respiratory: Denies cough Gastrointestinal: Gastrointestinal: Denies abdominal pain [facility] Medical History (Updated 08/31/21 @ 17:13 by DANE Coley) Arthritis of left knee Breast cancer Hyperlipidemia Hypertension Left knee pain Functional capacity: independent ambulation Pertinent family history: dad - CVA Surgical History History of appendectomy History of cholecystectomy History of hysterectomy History of lumpectomy Social History Alcohol intake: never Smoked in Last 30 Days: No Use of substances other than those prescribed or required for medical reasons: No Advance Directives: No Advance Directives Information Provided: No Current occupational status: retired Current occupation: [employer] Meds Allergies Allergy/AdvReac Type Severity Reaction Status Date / Time promethazine [PROMETHAZINE] AdvReac Unknown AGITATION Verified 08/31/21 09:55 Active Medications: Current Medications Acetaminophen (Acetaminophen 325 Mg Tablet) 650 mg PO Q6H PRN PRN Reason: Pain, Mild (Pain Scale 1-3) Docusate Sodium (Docusate Sodium 100 Mg Capsule) 100 mg PO DAILY PRN PRN Reason: Constipation Enoxaparin Sodium (Enoxaparin Sodium 40 Mg/0.4 Ml Syringe) 40 mg SUBCUT Q24H [facility] Hydralazine HCl (Hydralazine Hcl 20 Mg/Ml Vial) 5 mg IVPUSH Q6H PRN; Protocol PRN Reason: SBP> 180 Ondansetron HCl (Ondansetron Hcl 4 Mg/2 Ml Vial) 4 mg IVPUSH Q8H PRN PRN Reason: Nausea and Vomiting Pharmacy Consult (Consult Rx Perform Med Rec) 1 each MISCELLANE ONCE PRN PRN Reason: Consult order Sodium Chloride (0.9 % Sodium Chloride Flush 3 Ml Syringe) 3 ml IVFLUSH QSHIFT [facility] Home Medications Medication Instructions Recorded Confirmed Last Taken Type amlodipine PO 08/15/20 09/19/20 Unknown History methenamine hippurate 1 gram tablet 1 g PO BID 09/19/20 09/19/20 Unknown History ondansetron 4 mg disintegrating 4 mg PO Q8H 09/19/20 09/19/20 Unknown History tablet potassium chloride 10 mEq 10 meq PO Q48H 09/19/20 09/19/20 Unknown History capsule,extended release pravastatin 20 mg tablet 20 mg PO DAILY 09/19/20 09/19/20 Unknown History benazepril 10 mg tablet 1 tab PO DAILY 08/31/21 Unknown History ciclopirox 0.77 % topical cream appl TOPICAL 08/31/21 Unknown History gabapentin 300 mg capsule mg PO 08/31/21 Unknown History Physical Exam Vital Signs and Narrative: Vital Signs: Last Vital Signs Temp 98.0 F 08/31/21 15:56 Pulse 71 08/31/21 16:18 Resp 20 08/31/21 13:10 BP 199/88 H 08/31/21 16:53 Pulse Ox 99 08/31/21 13:10 Body Mass Index 22.4 Const: General: no acute distress, alert and awake Nutritional Appearance: well nourished Orientation/consciousness: patient oriented x3 HENMT: Head: Yes normocephalic and Yes atraumatic Eyes: Sclerae: sclerae normal Resp: Effort & Inspection: normal respiratory effort and no respiratory distress Cardio: Rate: regular rate Rhythm: regular rhythm GI: Palpation (GI): Soft to palpation and nontender Neuro: General: patient oriented x3 Cranial nerves: Yes CN's II-XII intact bilaterally and Yes Bilaterally intact EOM present Results Labs CBC and Chem 7: 08/31/21 10:51 08/31/21 10:51 Labs: Laboratory Results - last 24 hr 08/31/21 08/31/21 08/31/21 10:51 10:51 10:51 MCV 93.7 MCH 32.8 MCHC 35.0 RDW 11.3 Plt Count 183 MPV 9.6 Immature Gran % (Auto) 0.2 Neut % (Auto) 68.0 Lymph % (Auto) 23.6 Andrews % (Auto) 7.0 Eos % (Auto) 1.0 Baso % (Auto) 0.2 Lymph # (Auto) 1.2 Andrews # (Auto) 0.4 Eos # (Auto) 0.1 Baso # (Auto) 0.0 Abs Immat Gran (auto) 0.01 Absolute Neuts (auto) 3.39 Absolute Nucleated RBC 0.000 Nucleated RBC % (auto) 0.0 PT 11.8 INR 1.0 Anion Gap 13 Estim Creat Clear Calc 44.1 Estimated GFR > 60 Random Glucose 116 H Calcium 9.4 Magnesium 1.8 Total Bilirubin 0.8 AST 30 ALT 31 Alkaline Phosphatase 82 Troponin I High Sens B-Natriuretic Peptide Total Protein 7.0 Albumin 4.5 Urine Color Urine Appearance Urine pH Ur Specific [place] Urine Protein Urine Glucose (UA) Urine Ketones Urine Blood Urine Nitrite Ur Leukocyte Esterase Urine RBC Urine WBC Ur Squamous Epith Cells Urine Bacteria COVID-19 (NELLY) COVID-19 Clin Com 08/31/21 08/31/21 08/31/21 10:51 10:52 10:52 MCV MCH MCHC RDW Plt Count MPV Immature Gran % (Auto) Neut % (Auto) Lymph % (Auto) Andrews % (Auto) Eos % (Auto) Baso % (Auto) Lymph # (Auto) Andrews # (Auto) Eos # (Auto) Baso # (Auto) Abs Immat Gran (auto) Absolute Neuts (auto) Absolute Nucleated RBC Nucleated RBC % (auto) PT INR Anion Gap Estim Creat Clear Calc Estimated GFR Random Glucose Calcium Magnesium Total Bilirubin AST ALT Alkaline Phosphatase Troponin I High Sens 9.2 B-Natriuretic Peptide 105 H Total Protein Albumin Urine Color STRAW Urine Appearance HAZY Urine pH 7.5 Ur Specific [place] 1.015 Urine Protein 1+ H Urine Glucose (UA) NEG Urine Ketones NEG Urine Blood NEG Urine Nitrite NEG Ur Leukocyte Esterase 1+ H Urine RBC 0 Urine WBC 1-4 Ur Squamous Epith Cells 3+ Urine Bacteria 4+ COVID-19 (NELLY) Positive A COVID-19 Clin Com See Note 08/31/21 14:06 MCV MCH MCHC RDW Plt Count MPV Immature Gran % (Auto) Neut % (Auto) Lymph % (Auto) Andrews % (Auto) Eos % (Auto) Baso % (Auto) Lymph # (Auto) Andrews # (Auto) Eos # (Auto) Baso # (Auto) Abs Immat Gran (auto) Absolute Neuts (auto) Absolute Nucleated RBC Nucleated RBC % (auto) PT INR Anion Gap Estim Creat Clear Calc Estimated GFR Random Glucose Calcium Magnesium Total Bilirubin AST ALT Alkaline Phosphatase Troponin I High Sens 15.0 D B-Natriuretic Peptide Total Protein Albumin Urine Color Urine Appearance Urine pH Ur Specific [place] Urine Protein Urine Glucose (UA) Urine Ketones Urine Blood Urine Nitrite Ur Leukocyte Esterase Urine RBC Urine WBC Ur Squamous Epith Cells Urine Bacteria COVID-19 (NELLY) COVID-19 Clin Com Imaging Radiologist's Impressions: Impressions Head CT 08/31/21 10:16 IMPRESSION: No evidence of acute intracranial hemorrhage or edematous territorial infarction. Chest X-Ray 08/31/21 10:18 IMPRESSION: Mild subsegmental atelectasis in the lung bases. Otherwise, clear lungs. Head/Neck CTA 08/31/21 11:21 IMPRESSION: CT head: No intracranial hemorrhage or large acute infarction. Background changes of chronic microangiopathy. CTA neck: No hemodynamically significant stenosis in the major arteries of the neck. CTA head: No large vessel occlusion or significant stenosis within the intracranial circulation. Assessment and Plan (1) Uncontrolled hypertension: Status: Acute This is an 86-year-old female with a history of hypertension, hyperlipidemia, breast cancer status post lumpectomy who presents to the emergency department with headache found to have uncontrolled hypertension Uncontrolled hypertension Blood pressure improving after home Norvasc, hydrochlorothiazide given P.r.n. hydralazine Monitor blood pressure closely Headache Likely related to uncontrolled blood pressure No focal neurological deficits Brain CT, head/neck CTA unremarkable COVID-19 received [employer] vaccine x 2 No hypoxia Initial diagnosis 1 month ago supportive care med rec pending at this time. dvt ppx - lovenox code status - full code attending - dr. mitchell Quality Stroke Does the patient have a stroke diagnosis?: No VTE Prior VTE?: No VTE Risk Level:: Medical - moderate - high VTE Device Contraindication: N/A - Device Ordered VTE Drug Contraindication: N/A - Med Ordered
--- NOTE | 2021-08-31 17:19 | PM.EVENT ---
Event Note Date of Service: 09/01/21 Event Note: This patient is seen and examined with APC. Lab imaging, EKG reviewed. cbc and bmp seems fine ekg unchanged from before. She has COVID positive -the only symptoms are nausea and diarrhea. She said she had some headaches but she denies any dizziness or chest pain or shortness of breath or palpitations or weakness or numbness or vertigo Or any vision changes. no focal deficiet Physical exam : Appearance: Alert.? Oriented X3.? Eyes: Pupils equal, round and reactive to light.? Sclera nonicteric.? ENT: Pharynx normal.? Moist mucous membranes. cvs: rrr, [id number] , no murmur res: clear to auscultation ,no rhonchii or wheezing abd: no rebound or guarding ,nt, bs present. ext pulses present , no cyanosis neuro: axo3 , nonfocal.cn 2-12 intact , eomi , perrla . assessment and plan coordinated in APCs note, Agree with the plan in addition: moniter on tele Uncontrolled hypertension: headaches seems improving CTA head negative Her blood pressure is running well to her home medication will continue that. we will consider neuro eval-if she has persistent headaches. COVID bell: Will continue to monitor isolation room, currently does not have any symptoms vaccinated as per patient , pfizer vacccine mild atelactasis cxr - asymptomatic , added incentive julio and chest phsyio. d/w morning team resuming care about above .
--- NOTE | 2021-08-31 17:46 | PHA.MEDREC ---
Pharmacy Consult ? Medication Reconciliation Pharmacy has completed the medication reconciliation. I spoke with patient's daughter Macie who was able to report the medication patient is taking. Belen Byers, BellD
[2021-08-31] MEDS: Enoxaparin Sodium 40 MG/0.4 ML SYRINGE SUBCUT (17:53)
[2021-08-31] MEDS: ondansetron HCL 4 MG/2 ML VIAL IVPUSH (18:48)
--- NOTE | 2021-08-31 19:10 | PC.NURSE ---
PT RESTING IN BED WATCHING TV. aware of plan to admit to floor. pt reports feeling crummy . given IV zofran for nausea. pt alert and oriented, calm and cooperative.
[2021-08-31] MEDS: Acetaminophen 325 MG TABLET 650 MG PO (20:40)
--- NOTE | 2021-08-31 21:57 | PC.NURSE ---
call placed to pts at pts request to give him an update of pts condition and plan to admit.
--- NOTE | 2021-08-31 21:58 | PC.NURSE ---
pt did not eat dinner, requesting jello d/t nausea. pt is appropriate, continues to await bed assignments. BP has improved.
[2021-09-01] VITALS (10 sets, daily range): BP systolic 133–187; BP diastolic 71–89; PULSE 76–91; RESP 16–29; TEMP 36.6–37.2; O2SAT 96–99; BMI 23.3
--- NOTE | 2021-09-01 02:37 | PC.NURSE ---
hospitalist called to report pt headache and pt states the tylenol did not work for her.
[2021-09-01] MEDS: oxyCODONE HCl Immed Release 5 MG TABLET PO (02:55)
--- NOTE | 2021-09-01 05:24 | PC.NURSE ---
pt feeling nausea , pain resolved
[2021-09-01] MEDS: ondansetron HCL 4 MG/2 ML VIAL IVPUSH ×2 (05:33→17:39)
--- NOTE | 2021-09-01 05:35 | PC.NURSE ---
pt treated with zofran for nausea, gingerale and saltines at bed.
[2021-09-01 07:02] LABS: Anion Gap 16 (12-20); Blood Urea Nitrogen 14 mg/dL (9-16); Calcium 9.1 mg/dL (8.4-10.2); Carbon Dioxide 24 mmol/L (22-29); Chloride 96 mmol/L (96-108); Creatinine Clr Calc Pharmacy 42.4; Estimated Glomerular Filt Rate > 60; Glucose Random 150 mg/dL (60-115); Potassium 3.4 mmol/L (3.3-5.1); Sodium 133 mmol/L (135-145)
[2021-09-01] MEDS: lisinopriL 10 MG TABLET PO (09:05)
[2021-09-01] MEDS: Gabapentin 300 MG CAPSULE 600 MG PO ×3 (09:06→22:07)
[2021-09-01] MEDS: Multivitamin TABLET 1 TAB PO (09:06)
--- NOTE | 2021-09-01 10:59 | MHC.CM.PN ---
Attempted to meet with patient in regards to discharge planning.Patient is currently sleeping. Spoke with patient's daughter, Macie via telephone at [phone]. Patient lives at home with her and son, ambulates independently and had no services prior to coming to the hospital. Patient was diagnosed with dementia in 2016 by Kelli Davis. Patient first tested positive positive for Covid on 08/22. Patient completed her quarantine and wasn't having any issues. Patient went out of lunch on 08/31 and became extremely weak and dizzy. Patient was brought to the ER due to HTN. Macie is afraid patient isn't taking her HTN meds as ordered. Macie is requesting additional help at home when patient is ready for discharge. Macie agreeable to referral to [facility] for [facility] so that they can help with chronic disease management and to help arrange a med-minder. PCP verified. Obs notice explained and left bedside. Patient's family will transport her home when medically stable. Patient has a HCP. Macie will attempt to obtain a copy. Continue to monitor for d/c needs.
--- NOTE | 2021-09-01 12:41 | PC.NURSE ---
PT EVALUATED BY PROVIDER, SEIZURE MEDICATIONS GIVEN ORDERED, LABS SENT. SEIZURE PRECAUTIONS IN PLACE, PADS ON RAILS, CLOSE TO NURSING STATION ON MONITOR.
--- NOTE | 2021-09-01 15:23 | HO.PM.IMPN ---
Subjective Subjective Date of Service: 09/01/21 <DANE Coley - Last Filed: 09/01/21 15:56> 09/23/21 <Bruno Ambriz MD - Last Filed: 09/23/21 16:15> Interval History: Seen and examined this morning Follow-up for uncontrolled hypertension, headache, COVID-19 Still not feeling well. Reports ongoing nausea. Blood pressure has improved. Headache seems somewhat better. Urine culture returned positive <DANE Coley - Last Filed: 09/01/21 15:56> Review of Systems Review of Systems: Yes all other systems are reviewed and are negative <DANE Coley - Last Filed: 09/01/21 15:56> Constitutional Constitutional: Denies chills and Denies fever(s) <DANE Coley - Last Filed: 09/01/21 15:56> Cardiovascular Cardiovascular: Denies chest pain <DANE Coley - Last Filed: 09/01/21 15:56> Gastrointestinal Gastrointestinal: Denies abdominal pain <DANE Coley - Last Filed: 09/01/21 15:56> Physical Exam Vital Signs: Vital Signs: Last Vital Signs Temp 97.8 F 09/01/21 09:22 Pulse 83 09/01/21 09:22 Resp 16 09/01/21 09:22 BP 163/88 H 09/01/21 09:22 Pulse Ox 98 09/01/21 09:22 Body Mass Index 22.4 <DANE Coley - Last Filed: 09/01/21 15:56> Const: General: alert, awake and ill appearing <DANE Coley - Last Filed: 09/01/21 15:56> Nutritional Appearance: well nourished <DANE Coley Last Filed: 09/01/21 15:56> Orientation/consciousness: patient oriented x3 <DANE Coley Last Filed: 09/01/21 15:56> HENMT: Head: Yes normocephalic and Yes atraumatic <DANE Coley Last Filed: 09/01/21 15:56> Eyes: Sclerae: sclerae normal <DANE Coley - Last Filed: 09/01/21 15:56> Pupils: Equal, round and reactive pupils present <DANE Coley - Last Filed: 09/01/21 15:56> Resp: Effort & Inspection: normal respiratory effort and no respiratory distress <DANE Coley - Last Filed: 09/01/21 15:56> Cardio: Rate: regular rate <DANE Coley - Last Filed: 09/01/21 15:56> Rhythm: regular rhythm <DANE Coley - Last Filed: 09/01/21 15:56> GI: Palpation (GI): Soft to palpation and nontender <DANE Coley - Last Filed: 09/01/21 15:56> Neuro: General: patient oriented x3 <DANE Coley - Last Filed: 09/01/21 15:56> Cranial nerves: Yes CN's II-XII intact bilaterally, Yes Equal, round and reactive pupils present and Yes Bilaterally intact EOM present <DANE Coley - Last Filed: 09/01/21 15:56> Extrem: Other: no leg edema <DANE Coley - Last Filed: 09/01/21 15:56> Objective Data Active Medications Acetaminophen (Acetaminophen 325 Mg Tablet) 650 mg PO Q6H PRN PRN Reason: Pain, Mild (Pain Scale 1-3) Last Admin: 08/31/21 20:40 Dose: 650 mg Documented by: JOHNSON Docusate Sodium (Docusate Sodium 100 Mg Capsule) 100 mg PO DAILY PRN PRN Reason: Constipation Enoxaparin Sodium (Enoxaparin Sodium 40 Mg/0.4 Ml Syringe) 40 mg SUBCUT Q24H [facility] Last Admin: 08/31/21 17:53 Dose: 40 mg Documented by: JOHNSON Gabapentin (Gabapentin 300 Mg Capsule) 600 mg PO TID [facility] Last Admin: 09/01/21 15:13 Dose: 600 mg Documented by: BELEM Hydralazine HCl (Hydralazine Hcl 20 Mg/Ml Vial) 5 mg IVPUSH Q6H PRN; Protocol PRN Reason: SBP> 180 Ceftriaxone Sodium 1 gm/ (Sodium Chloride) 50 mls @ 100 mls/hr IV Q24H [facility] Lisinopril (Lisinopril 10 Mg Tablet) 10 mg PO DAILY [facility] Last Admin: 09/01/21 09:05 Dose: 10 mg Documented by: BELEM Multivitamins/Vitamin C (Multivitamin Tablet) 1 tab PO DAILY [facility] Last Admin: 09/01/21 09:06 Dose: 1 tab Documented by: BELEM Ondansetron HCl (Ondansetron Hcl 4 Mg/2 Ml Vial) 4 mg IVPUSH Q8H PRN PRN Reason: Nausea and Vomiting Last Admin: 09/01/21 05:33 Dose: 4 mg Documented by: JIMMY Pharmacy Consult (Consult Rx Perform Med Rec) 1 each MISCELLANE ONCE PRN PRN Reason: Consult order Pravastatin Sodium (Pravastatin Sodium 20 Mg Tablet) 20 mg PO BEDTIME [facility] Sodium Chloride (0.9 % Sodium Chloride Flush 3 Ml Syringe) 3 ml IVFLUSH QSHIFT [facility] Last Admin: 09/01/21 08:13 Dose: Not Given Documented by: BELEM Non-Admin Reason: IV Running <DANE Coley - Last Filed: 09/01/21 15:56> Labs CBC & Chem 7: : 08/31/21 10:51 09/02/21 06:12 <DANE Coley - Last Filed: 09/01/21 15:56> Labs: Laboratory Results - last 24 hr 09/01/21 06:42 Anion Gap 16 Estim Creat Clear Calc 42.4 Estimated GFR > 60 Random Glucose 150 H Calcium 9.1 <DANE Coley - Last Filed: 09/01/21 15:56> Microbiology Microbiology Results: Microbiology 08/31/21 Unknown Urine Culture - Preliminary Urine clean catch - Urine delgado top Gram negative dot <DANE Coley - Last Filed: 09/01/21 15:56> Assessment and Plan (1) UTI (urinary tract infection): Status: Acute <DANE Coley - Last Filed: 09/01/21 15:56> Assessment and Plan: This is an 86-year-old female with a history of hypertension, hyperlipidemia, breast cancer status post lumpectomy who presents to the emergency department with headache found to have uncontrolled hypertension UTI UCx growing gram neg rods -will start IV ceftriaxone -collect blood cultures Uncontrolled hypertension BP improving. Continue LUCY-inhibitor P.r.n. hydralazine Monitor blood pressure closely Headache Likely related to uncontrolled blood pressure No focal neurological deficits Brain CT, head/neck CTA unremarkable COVID-19 received pfizer vaccine x 2 Initial diagnosis 1 month ago No hypoxia supportive care HLD Continue statin dvt ppx - lovenox code status - full code attending - dr. ambriz <DANE Coley - Last Filed: 09/01/21 15:56> This is an 86-year-old female with a history of hypertension, hyperlipidemia, breast cancer status post lumpectomy who presents to the emergency department with headache found to have uncontrolled hypertension UTI UCx growing gram neg rods -will start IV ceftriaxone -collect blood cultures Uncontrolled hypertension BP improving. Continue LUCY-inhibitor P.r.n. hydralazine Monitor blood pressure closely Headache Likely related to uncontrolled blood pressure No focal neurological deficits Brain CT, head/neck CTA unremarkable COVID-19 received pfizer vaccine x 2 Initial diagnosis 1 month ago No hypoxia supportive care HLD Continue statin dvt ppx - lovenox code status - full code attending - dr. ambriz I saw and examined patient and discssed finding with mid level and I agree with the above <Brunodora Ambriz MD - Last Filed: 09/23/21 16:15> Quality Stroke Does the patient have a stroke diagnosis?: No <DANE Coley - Last Filed: 09/01/21 15:56> VTE Prior VTE?: No <DANE Coley - Last Filed: 09/01/21 15:56> VTE Risk Level:: Medical - moderate - high <DANE Coley - Last Filed: 09/01/21 15:56> VTE Device Contraindication: N/A - Device Ordered <DANE Coley - Last Filed: 09/01/21 15:56> VTE Drug Contraindication: N/A - Med Ordered <DANE Coley - Last Filed: 09/01/21 15:56>
[2021-09-01] MEDS: Enoxaparin Sodium 40 MG/0.4 ML SYRINGE SUBCUT (16:44)
[2021-09-01] MEDS: 0.9 % Sodium Chloride Flush 3 ML SYRINGE IVFLUSH ×2 (16:45→22:07)
[2021-09-01] MEDS: cefTRIAXone sodium 1 GM in 0.9 % Sodium Chloride 50 ML IV (16:45)
--- NOTE | 2021-09-01 17:04 | MHC.CM.PN ---
Pt daughter, Macie called requesting an update. Macie would like to speak with her mother. No working phone at the moment.
[2021-09-01] MEDS: Pravastatin Sodium 20 MG TABLET PO (22:07)
[2021-09-02] VITALS (7 sets, daily range): BP systolic 112–141; BP diastolic 56–87; PULSE 70–96; RESP 18–21; TEMP 36.2–36.8; O2SAT 95–98
[2021-09-02 06:53] LABS: Anion Gap 16 (12-20); Blood Urea Nitrogen 25 mg/dL (9-16); Carbon Dioxide 25 mmol/L (22-29); Chloride 95 mmol/L (96-108); Creatinine Clr Calc Pharmacy 34.1; Estimated Glomerular Filt Rate 55; Glucose Random 109 mg/dL (60-115); Potassium 3.4 mmol/L (3.3-5.1); Sodium 133 mmol/L (135-145)
[2021-09-02] MEDS: Lactated Ringers 1,000 ML 80 ML IVCONT (08:37)
[2021-09-02] MEDS: 0.9 % Sodium Chloride Flush 3 ML SYRINGE IVFLUSH ×3 (08:38→20:00)
[2021-09-02] MEDS: Multivitamin TABLET 1 TAB PO (08:38)
[2021-09-02] MEDS: Gabapentin 300 MG CAPSULE 600 MG PO ×3 (08:38→20:00)
[2021-09-02] MEDS: lisinopriL 10 MG TABLET PO (08:38)
--- NOTE | 2021-09-02 13:11 | HO.PM.IMPN ---
Subjective Subjective Date of Service: 09/02/21 Interval History: Seen and examined this morning Follow-up For headache, elevated pressure, UTI Patient feeling much better, reports feeling back to baseline Headache has resolved, denies fever, chills. Ate full breakfast this morning Review of Systems Review of Systems: Yes all other systems are reviewed and are negative Constitutional Constitutional: Denies chills and Denies fever(s) Cardiovascular Cardiovascular: Denies chest pain Respiratory Respiratory: Denies cough Gastrointestinal Gastrointestinal: Denies abdominal pain Physical Exam Vital Signs: Vital Signs: Last Vital Signs Temp 98.0 F 09/02/21 11:52 Pulse 78 09/02/21 11:52 Resp 19 09/02/21 11:52 BP 112/59 L 09/02/21 11:52 Pulse Ox 98 09/02/21 11:52 Body Mass Index 23.3 Const: Nutritional Appearance: well nourished Orientation/consciousness: patient oriented x3 HENMT: Head: Yes normocephalic and Yes atraumatic Eyes: Sclerae: sclerae normal Resp: Effort & Inspection: normal respiratory effort and no respiratory distress Cardio: Rate: regular rate Rhythm: regular rhythm GI: Palpation (GI): Soft to palpation and nontender Neuro: General: patient oriented x3 Cranial nerves: Yes CN's II-XII intact bilaterally and Yes Bilaterally intact EOM present Objective Data Active Medications Acetaminophen (Acetaminophen 325 Mg Tablet) 650 mg PO Q6H PRN PRN Reason: Pain, Mild (Pain Scale 1-3) Last Admin: 08/31/21 20:40 Dose: 650 mg Documented by: JOHNSON Docusate Sodium (Docusate Sodium 100 Mg Capsule) 100 mg PO DAILY PRN PRN Reason: Constipation Enoxaparin Sodium (Enoxaparin Sodium 40 Mg/0.4 Ml Syringe) 40 mg SUBCUT Q24H [facility] Last Admin: 09/01/21 16:44 Dose: 40 mg Documented by: ALEX Gabapentin (Gabapentin 300 Mg Capsule) 600 mg PO TID [facility] Last Admin: 09/02/21 08:38 Dose: 600 mg Documented by: CRISTOPHER Hydralazine HCl (Hydralazine Hcl 20 Mg/Ml Vial) 5 mg IVPUSH Q6H PRN; Protocol PRN Reason: SBP> 180 Ceftriaxone Sodium 1 gm/ (Sodium Chloride) 50 mls @ 100 mls/hr IV Q24H [facility] Last Infusion: 09/01/21 17:15 Dose: 0 mls/hr Documented by: ALEX Lactated Ringer's (Lr) 1,000 mls @ 80 mls/hr IVCONT .[id number] [facility] Last Admin: 09/02/21 08:37 Dose: 80 mls/hr Documented by: CRISTOPHER Lisinopril (Lisinopril 10 Mg Tablet) 10 mg PO DAILY [facility] Last Admin: 09/02/21 08:38 Dose: 10 mg Documented by: CRISTOPHER Multivitamins/Vitamin C (Multivitamin Tablet) 1 tab PO DAILY [facility] Last Admin: 09/02/21 08:38 Dose: 1 tab Documented by: CRISTOPHER Ondansetron HCl (Ondansetron Hcl 4 Mg/2 Ml Vial) 4 mg IVPUSH Q8H PRN PRN Reason: Nausea and Vomiting Last Admin: 09/01/21 17:39 Dose: 4 mg Documented by: ALEX Pharmacy Consult (Consult Rx Perform Med Rec) 1 each MISCELLANE ONCE PRN PRN Reason: Consult order Pravastatin Sodium (Pravastatin Sodium 20 Mg Tablet) 20 mg PO BEDTIME [facility] Last Admin: 09/01/21 22:07 Dose: 20 mg Documented by: DEBRA Sodium Chloride (0.9 % Sodium Chloride Flush 3 Ml Syringe) 3 ml IVFLUSH QSHIFT [facility] Last Admin: 09/02/21 08:38 Dose: 3 ml Documented by: CRISTOPHER Labs CBC & Chem 7: 08/31/21 10:51 09/02/21 06:12 Labs: Laboratory Results - last 24 hr 09/02/21 06:12 Anion Gap 16 Estim Creat Clear Calc 34.1 Estimated GFR 55 Random Glucose 109 Calcium 9.0 Microbiology Microbiology Results: Microbiology 08/31/21 Unknown Urine Culture - Final Urine clean catch - Urine delgado top Escherichia coli Assessment and Plan (1) UTI (urinary tract infection): Status: Acute (2) Uncontrolled hypertension: Status: Acute Assessment and Plan: This is an 86-year-old female with a history of hypertension, hyperlipidemia, breast cancer status post lumpectomy who presents to the emergency department with headache found to have uncontrolled hypertension UTI UCx growing vickers sensitive coli Continue IV ceftriaxone, day #2 -FU blood cultures Uncontrolled hypertension BP now controlled Continue LUCY-inhibitor P.r.n. hydralazine Monitor blood pressure closely Headache Likely related to uncontrolled blood pressure No focal neurological deficits Brain CT, head/neck CTA unremarkable COVID-19 received pfizer vaccine x 2 Initial diagnosis 1 month ago No hypoxia supportive care HLD Continue statin dvt ppx - lovenox code status - full code attending - dr. eLwis Quality Stroke Does the patient have a stroke diagnosis?: No VTE Prior VTE?: No VTE Risk Level:: Medical - moderate - high VTE Device Contraindication: N/A - Device Ordered VTE Drug Contraindication: N/A - Med Ordered
[2021-09-02] MEDS: cefTRIAXone sodium 1 GM in 0.9 % Sodium Chloride 50 ML IV (15:37)
[2021-09-02] MEDS: Enoxaparin Sodium 40 MG/0.4 ML SYRINGE SUBCUT (16:23)
--- NOTE | 2021-09-02 17:43 | PC.NURSE ---
Patient OOB to recliner for majority of the day. Remains on room air. Awaiting results of blood cultures.
[2021-09-02] MEDS: Pravastatin Sodium 20 MG TABLET PO (20:00)
[2021-09-03 03:09] VITALS: BP 157/75; PULSE 71; RESP 20; TEMP 37.1; O2SAT 97
[2021-09-03 08:00] VITALS: BP 150/66; PULSE 73; RESP 20; TEMP 36.5; O2SAT 98
[2021-09-03 08:06] VITALS: BP 150/66; PULSE 72
[2021-09-03] MEDS: lisinopriL 10 MG TABLET PO (08:06)
[2021-09-03] MEDS: Multivitamin TABLET 1 TAB PO (08:06)
[2021-09-03] MEDS: Gabapentin 300 MG CAPSULE 600 MG PO (08:06)
[2021-09-03] MEDS: 0.9 % Sodium Chloride Flush 3 ML SYRINGE IVFLUSH (08:07)
--- NOTE | 2021-09-03 08:58 | PM.DS ---
DS: Providers Provider Date of Service: 09/03/21 Date of admission: 08/31/21 16:54 Date of discharge: 09/03/21 Primary care physician: Wero Elaine MD Attending physician on discharge: Cristiana Lewis Discharging clinician: Maia Raymundo DS: Diagnosis Discharge Diagnosis (1) UTI (urinary tract infection): Status: Acute (2) Uncontrolled hypertension: Status: Acute (3) Nausea & vomiting: Status: Acute (4) Headache: Status: Acute DS: Summary Hospital Course Hospital Course: From H&P on day of admission This is an 86-year-old female presents to the emergency department today with complaints of headache.? Patient states yesterday she was not feeling well and had a headache.? She went to bed early but her headache was still present this morning when she woke up.? Initially her headache was located in the back of her neck and radiated up to the top of her head, now it is located primarily in the frontal region.? She denies any blurry vision, double vision, chest pain, shortness of breath, dizziness or feeling lightheaded.? Her initial blood pressure was elevated at 218/94.? She received dose of her home hydrochlorothiazide as well as Norvasc and her blood pressure has improved to 180s.? She underwent CT scan of the head and head and neck CTA which showed no acute abnormalities.? She also tested positive for COVID-19.? She states that she initially tested positive for COVID-19 in early July but was minimally symptomatic at that time. UTI. Urine culture grew pansensitive ESBL negative E coli >100,000 cfu/mL. She was initially started on IV ceftriaxone and will be transition to oral Ceftin on discharge for 5 more days. Her symptoms improved significantly after starting antibiotics. Blood cultures have remained negative to date. Urine Culture Final Organism 1 Escherichia coli Quant > 100,000 cfu/mL E coli M.I.C. RX --------- --- Ampicillin <=2 S Extended Spectrum Beta Lactam NEG - Ceftriaxone <=1 S Gentamicin <=1 S Levofloxacin <=0.12 S Nitrofurantoin <=16 S Trimethoprim/Sulfamethoxazole <=20 S Uncontrolled hypertension. Head CT and head and neck CTA were obtained and showed no acute changes. Initial blood pressure readings as high as 218/94. She received oral medications in the emergency department with improvement of her blood pressure to the 180s. She was continued on her home LUCY-inhibitor and her blood pressure improved significantly without further treatment. Nausea and vomiting. Her nausea and vomiting was treated symptomatically with antiemetics. She denied any abdominal pain. Nausea and vomiting improved with symptomatic treatment. COVID-19. Patient reports that she initially tested positive for COVID approximately 1 month ago and has completed her isolation. She denies any shortness of breath, cough. She did not require any supplemental oxygen during her hospitalization. Chest x-ray on day of admission showed mild atelectasis in the lung bases otherwise clear lungs. Time Spent with Patient Time attestation: Total time spent providing and/or coordinating discharge services: Discharge coordination time: Greater than 30 minutes Quality: Stroke Does the patient have a stroke diagnosis?: No Physical Exam Vital Signs: Vital Signs: Last Vital Signs Temp 97.7 F 09/03/21 08:00 Pulse 72 09/03/21 08:06 Resp 20 09/03/21 08:00 BP 150/66 H 09/03/21 08:06 Pulse Ox 98 09/03/21 08:00 Body Mass Index 23.3 Const: General: cooperative, comfortable, no acute distress, alert, awake and Physically active Nutritional Appearance: well nourished HENMT: Head: Yes normocephalic and Yes atraumatic Mouth: moist mucous membranes Eyes: Sclerae: sclerae normal Pupils: Equal, round and reactive pupils present Resp: Effort & Inspection: normal respiratory effort, able to speak in complete sentences and no respiratory distress Cardio: Rate: regular rate Rhythm: regular rhythm GI: Inspection: No distended Palpation (GI): Soft to palpation and nontender Neuro: Cranial nerves: Yes CN's II-XII intact bilaterally, Yes Equal, round and reactive pupils present and Yes Bilaterally intact EOM present Extrem: Other: no lower extremity edema DS: Data Data Completed and Pending Labs on day of discharge: Preliminary micro results at discharge 09/01/21 17:20 Blood Culture - Preliminary Blood - Venous No growth after 24 hours. 09/01/21 17:15 Blood Culture - Preliminary Blood - Venous No growth after 24 hours. Discharge Plan Discharge Patient Disposition: Home, Self-Care Discharge Diagnosis: UTI Nausea & vomiting Elevated Blood pressure Referrals: Wero Elaine MD [Primary Care Provider] - 1 Week Discharge Medications: New cefuroxime axetil 250 mg tablet 250 mg PO BID 5 Days Qty: 10 RF: 0 Continued ondansetron HCl [Zofran] 4 mg tablet 4 mg PO Q8H PRN (Reason: nausea and vomiting) Qty: 10 RF: 0 gabapentin 300 mg capsule 600 mg PO TID RF: 0 ciclopirox 0.77 % cream 1 appl topical DAILY PRN (Reason: Rash) RF: 0 benazepril 10 mg tablet 1 tab PO DAILY RF: 0 multivitamin Tablet 1 tab PO DAILY RF: 0 polyethylene glycol 3350 [Miralax] 17 gram/dose Powder 17 g PO DAILY PRN (Reason: Constipation) RF: 0 potassium chloride 10 mEq capsule, extended release 10 meq PO Q48H RF: 0 pravastatin 20 mg tablet 20 mg PO DAILY RF: 0 Activity on Discharge: As tolerated Stand Alone Forms: Patient Portal Discharge page Care Plan Goals: Resolution of UTI Health Concerns: UTI Uncontrolled blood pressure Nausea and vomiting Covid 19 Plan of Treatment: UTI - please take entire course of antibiotics. Nausea & vomiting has resolved. Uncontrolled blood pressure. Blood pressure has improved. No changes were made to your blood pressure medication. Please call to schedule a follow-up appointment with your PCP for repeat blood pressure check COVID-19. Please follow CDC guidelines for isolation. Assessment: 86 year old female admitted with headache, nausea and vomiting, elevated blood pressure found to have UTI.
--- NOTE | 2021-09-03 09:18 | W.MHC.F2F ---
Service Date Service Date: 09/03/21 Encounter Date of encounter: 09/03/21 Reasons for Services Reason for intermediate: other (Medication reconciliation) MD Overseeing Care: Wero Elaine Homebound: Leaving the home is medically contraindicated at this time without the asist of a device and/or another person due th the listed conditions above and below. Reason homebound: weakness related to hospital stay Certification: Based on the above findings, I certify that this patient is confined to the home and needs intermittent intermediate care, physical therapy and/or speech therapy, or continues to need occupational therapy. The patient is under my care, and I have initiated the establishment of the plan of care. The patient will be followed by a physician who will periodically review the plan of care.
--- NOTE | 2021-09-03 10:46 | MHC.CM.PN ---
order for home, self care. CM acknowledge.
== END 2021-09-03 10:45 | disposition home or self-care (01) ==
LOC: HO.ED 14:52 → HO.EDOVER 23:10 → HO.IMC 09-01 19:17
PROVIDERS: Physician Assistant Medical; Admitting Provider Physician Assistant Medical; Emergency Provider Emergency Medicine; PCP Internal Medicine; Visit Provider Physician Assistant Medical
DX: U07.1 COVID-19 (principal); I10 Essential (primary) hypertension; R42 Dizziness and giddiness; R51.9 Headache, unspecified; M54.2 Cervicalgia; R11.2 Nausea with vomiting, unspecified; R77.8 Other specified abnormalities of plasma proteins; N39.0 Urinary tract infection, site not specified; E78.5 Hyperlipidemia, unspecified; I45.10 Unspecified right bundle-branch block; Z88.8 Allergy status to other drugs, medicaments and biological substances
CPT/HCPCS: 36415; 70450; 70496; 70498; 71045; 80048; 80053; 81001; 81003; 83735; 83880; 84484; 85025; 85610; 87040; 87086; 87088; 87186; 87635; 93005; 96361; 96365; 96372; 96375; 99219; 99284; 99285; J0696; J1650; J2405; J3030; Q9967

== ENCOUNTER 2021-09-22 12:16 | Emergency (ER) | payer MEDICARE, SELFPAY ==
--- NOTE | ~2021-09-22 | CT_ITS ---
EXAMINATION: CT LUMBAR SPINE WITHOUT CONTRAST CLINICAL INFORMATION: Low back pain. COMPARISON: Lumbar spine 09/15/2017. TECHNIQUE: 2 mm thin axial and reformatted 2 mm thin sagittal and coronal images of lumbar spine were obtained without contrast. This CT examination was performed using dose optimization techniques as appropriate, variously including the following: *Automated exposure control *Adjustment of mA and/or kV according to patient size (this includes techniques or standardized protocols for targeted exams where dose is matched to indication/reason for exam; i.e. extremities or head) *Use of iterative reconstruction technique DLP; 348 mGy-cm FINDINGS: There is normal lumbar lordosis. There is grade 1 anterolisthesis L3 over L4 and grade 1 retrolisthesis L1 over L2. Rest of the vertebral alignment is normal. There is loss of L1-L2, L3-L4, L4-L5 and L5-S1 disc heights with mild ventral and posterior spondylosis. At L1-L2 disc level there is minimal posterior spondylosis/bulge complex without spinal canal stenosis. The neural foramina are patent bilaterally. Bilateral facet joint arthropathy is noted. At L2-L3 disc level there is minimal bulge without spinal canal stenosis. The neural foramina are patent bilaterally. At L3-L4 disc level there is vacuum disc phenomena with moderate to significant bilateral facet joint hypertrophy without spinal canal stenosis. The neural foramina is patent. At L4-L5 disc level there is a broad-based diffuse bulge/osteophyte complex with minimal AP canal stenosis. The neural foramina are mildly narrowed. At L5-S1 disc level there is minimal disc bulge with left paracentral vacuum disc herniation in close approximation to the exiting left S1 nerve root. No spinal canal stenosis. The neural foramina are patent bilaterally. There are sclerotic endplate changes at L4-L5 and L3-L4 disc levels. There is no fracture. The prevertebral and the presacral soft tissues are normal. CT/CT lumbar spine wo con IMPRESSION: Grade 1 anterolisthesis L3 over L4 and grade 1 retrolisthesis L1 over L2 with endplate sclerosis and spondylosis. Degenerative disc bulges with vacuum disc phenomena at L1-L2, L3-L4, L4-L5 and L5-S1 disc levels. There is left paracentral vacuum disc herniation at L5-S1 disc level and disc bulge/osteophyte complex at L4-L5 disc level with minimal AP canal stenosis.
[2021-09-22 12:33] VITALS: BP 181/82; BP 186/86; PULSE 76; PULSE 99; RESP 16; TEMP 36.6; O2SAT 97; BMI 23.0
--- NOTE | 2021-09-22 12:37 | ED.GENADULT ---
HPI - General Adult General Chief complaint: Back Pain/Injury Stated complaint: back pain x5 days Time Seen by Provider: 09/22/21 12:36 History of Present Illness HPI narrative: 86-year-old female with past medical history of hypertension, hyperlipidemia, chronic hyponatremia, arthritis, migraine headaches, breast CA SP right-sided lumpectomy comes here today via ambulance for complaining of low back pain. Patient denies any injury. Patient reports that the pain started yesterday when she woke up. She took methylprednisolone yesterday 24 mg. This morning patient reports that she took 4 mg. Patient denies any radiculopathy, denies any fecal or urinary incontinence. Patient reports that the pain is worse when she stands up. Some pain when she is sitting. Related Data Home Medications Medication Instructions Recorded Confirmed potassium chloride 10 mEq 10 meq PO Q48H 09/19/20 08/31/21 capsule,extended release pravastatin 20 mg tablet 20 mg PO DAILY 09/19/20 08/31/21 benazepril 10 mg tablet 1 tab PO DAILY 08/31/21 08/31/21 ciclopirox 0.77 % topical cream 1 appl TOPICAL DAILY PRN 08/31/21 08/31/21 gabapentin 300 mg capsule 600 mg PO TID 08/31/21 08/31/21 multivitamin 1 tab PO DAILY 08/31/21 08/31/21 polyethylene glycol 3350 17 17 g PO DAILY PRN 08/31/21 08/31/21 gram/dose oral powder (Miralax) Previous Rx's Medication Instructions Recorded ondansetron HCl 4 mg tablet 4 mg PO Q8H PRN #10 tab 05/21/21 (Zofran) cefuroxime axetil 250 mg tablet 250 mg PO BID 5 Days #10 tab 09/03/21 oxycodone 5 mg tablet 2.5 mg PO Q4-6H PRN #10 tab 09/22/21 prednisone 20 mg tablet 40 mg PO DAILY 5 Days #10 tab 09/22/21 Allergies Allergy/AdvReac Type Severity Reaction Status Date / Time promethazine [PROMETHAZINE] AdvReac Unknown AGITATION Verified 08/31/21 09:55 Review of Systems Review of Systems: Constitutional : No Weight loss, No Fever, No Chills, No Night Sweats, No Fatigue, No Malaise ENT/Mouth : No Hearing loss, No Ear Pain, No Nasal Congestion, No Sinus Pain, No Hoarseness, No sore throat, No Rhinorrhea, No Swallowing Difficulty Eyes: No Eye Pain, No Swelling, No Redness, No Foreign Body, No Discharge, No Vision Changes Cardiovascular : No Chest Pain, No SOB, No Dyspnea on Exertion, No Orthopnea, No Edema, No Palpitations Respiratory : No Cough, No Sputum, No Wheezing, No Smoke Exposure, No Dyspnea Gastrointestinal : No Nausea, No Vomiting, No Diarrhea, No Constipation, No abdominal Pain, No Hematochezia, No Melena Genitourinary : no irregular bleeding, No Dysuria, No Urinary Frequency, No Hematuria, No Urinary Incontinence, No Urgency, No Flank Pain, No Urinary Flow Changes, No Hesitancy Musculoskeletal : No joint pain, No Myalgias, No Joint Swelling Back/spine: Low back pain, no radiation Skin : No Skin Lesions, No rash Neuro : No Weakness, No Numbness, No Paresthesias, No Loss of Consciousness, No Dizziness, No Headache Psych : No Anxiety/Panic, No Depression, No SI/HI/AH/VH, No Social Issues, Heme/Lymph: No Bruising, No Bleeding,No Lymphadenopathy Endocrine : No Polyuria, No Polydipsia, No Temperature Intolerance Yes all other systems are reviewed and are negative [facility] Past Medical History Medical History (Updated 09/22/21 @ 17:02 by Dilma Noel [facility]) Arthritis of left knee Breast cancer Hyperlipidemia Hypertension Left knee pain Surgical History History of appendectomy History of cholecystectomy History of hysterectomy History of lumpectomy Social History Social History Household Members: Spouse and Children Housing: House Alcohol intake: never Patient Tobacco Use Status: Never used Tobacco Advance Directives: Yes Advance Directives Information Provided: Yes Advance Directives on File: No service: No Current occupational status: retired Current occupation: [employer] Physical Exam Vital Signs: Vital Signs: Last Vital Signs Temp 98.2 F 09/22/21 15:37 Pulse 72 09/22/21 15:37 Resp 18 09/22/21 15:37 BP 208/91 H 09/22/21 15:37 Pulse Ox 98 09/22/21 15:37 Body Mass Index 23.0 Const: General: healthy appearing, no acute distress and well developed Nutritional Appearance: well nourished Orientation/consciousness: patient oriented x3 HENMT: Head: Yes normal to inspection, Yes normocephalic and Yes atraumatic Face and sinus: Yes normal facial exam Mouth: Normal oral and palatal mucosa present Throat: Yes posterior oropharynx normal, Yes tonsils normal and Yes uvula midline Eyes: General: appearance normal, both eyes and all related structures Neck: Neck: Yes normal visual inspection, Yes full ROM and Yes trachea midline Thyroid: Thyroid normal Resp: Effort & Inspection: normal respiratory effort, able to speak in complete sentences, no tracheal deviation and symmetric chest movement Auscultation: clear to auscultation bilaterally Cardio: Jugular venous distension: no JVD Rate: regular rate Rhythm: regular rhythm Heart sounds: S1 normal heart sound present, S2 normal heart sound present, no gallops and no murmurs GI: Inspection: Yes normal to inspection and No distended Palpation (GI): Soft to palpation, not firm, nontender and No hepatosplenomegaly present Auscultation: normal bowel sounds : General: Yes no CVA tenderness Back/Spine/Pelvis: Back: no CVA tenderness Cervical Spine: normal cervical lordosis Thoracic/Lumbar Spine: thoracic and lumbar spine normal to inspection Skin: General skin exam: elasticity normal, turgor normal and dry skin Neuro: General: patient oriented x3 Psych: Appearance: grossly normal Mental Status: mental status grossly normal Speech and movement: Normal speech and movement present Affect: normal affect Attitude: cooperative Thought process: Normal thought process present Thought content: Normal thought content present Insight: Good insight present (Psych) Judgement: Good judgement present (Psych) Course Course Course Narrative: 86-year-old with past medical history of breast CA status post right sided lumpectomy, chronic hyponatremia, arthritis, migraine headaches, hyperlipidemia, hypertension is here today for low back pain. Patient denies any injuries. Pain started yesterday when she woke up. Denies any radiation. Denies any radiculopathy, fecal or urinary incontinence. Patient reports that she does have a history of back pain in the past. Was given Medrol Dosepak for emergencies if she has any pain. Patient reports he took 6 doses of the 4 mg yesterday total of 24 mg and today she took 1 dose. Patient reports that several years ago she was going for her low back pain to [facility] in [place]. She was sent to have physical therapy. Patient reports that she continues to do physical therapy at home. Will do CT scan lumbar spine, medicated with Valium. Pending results will treat with possible steroid. Reevaluation(s) Reevaluation #1: CT scan back no acute processes except for left paracentral vacuum disc his or herniation at L5-S1 disc levels and disc bulge/osteophyte complex at L4-L5 disc level with minimal AP canal stenosis will medicate patient with prednisone and oxycodone. Awaiting for urinalysis. Patient denies any burning, pain when urinating or urinary frequency Reevaluation #2: Patient was only able to urinate very small amount and sent for culture only. Patient denies any urinary symptoms and will send her home to follow-up with PCP and [facility] in [place]. Patient reports that she saw her urologist this week and her urinalysis test was negative Medical Decision Making Imaging Data CT of lumbar and spine: Attestation: I personally reviewed and interpreted this imaging study as follows: Radiologist's impression: IMPRESSION: Grade 1 anterolisthesis L3 over L4 and grade 1 retrolisthesis L1 over L2 with endplate sclerosis and spondylosis. ? Degenerative disc bulges with vacuum disc phenomena at L1-L2, L3-L4, L4-L5 and L5-S1 disc levels. There is left paracentral vacuum disc herniation at L5-S1 disc level and disc bulge/osteophyte complex at L4-L5 disc level with minimal AP canal stenosis. Discharge Plan Discharge Clinical Impression: Lumbar radiculopathy Patient Disposition: Home, Self-Care Instructions: Acute Low Back Pain (ED), Lumbar Radiculopathy (ED) Additional Instructions: You were seen here today for lower back pain. Your CT scan was negative for any acute fractures, you will be sent home with oxycodone and prednisone. Finish all prednisone and follow-up with [facility] on Saturday. You will need to go for physical therapy. Please make sure that if you will have any symptoms of urinary or fecal incontinence or any numbness or tingling in your bilateral lower extremities to return to our emergency department immediately. Prescriptions: New oxycodone 5 mg tablet 2.5 mg PO Q4-6H PRN (Reason: pain) Qty: 10 RF: 0 prednisone 20 mg tablet 40 mg PO DAILY 5 Days Qty: 10 RF: 0 No Action ondansetron HCl [Zofran] 4 mg tablet 4 mg PO Q8H PRN (Reason: nausea and vomiting) Qty: 10 RF: 0 gabapentin 300 mg capsule 600 mg PO TID RF: 0 ciclopirox 0.77 % cream 1 appl topical DAILY PRN (Reason: Rash) RF: 0 benazepril 10 mg tablet 1 tab PO DAILY RF: 0 multivitamin Tablet 1 tab PO DAILY RF: 0 polyethylene glycol 3350 [Miralax] 17 gram/dose Powder 17 g PO DAILY PRN (Reason: Constipation) RF: 0 cefuroxime axetil 250 mg tablet 250 mg PO BID 5 Days Qty: 10 RF: 0 potassium chloride 10 mEq capsule, extended release 10 meq PO Q48H RF: 0 pravastatin 20 mg tablet 20 mg PO DAILY RF: 0
[2021-09-22] MEDS: diazePAM 2 MG TABLET PO (13:06)
[2021-09-22 15:37] VITALS: BP 208/91; PULSE 72; RESP 18; TEMP 36.8; O2SAT 98
[2021-09-22] MEDS: predniSONE 20 MG TABLET 40 MG PO (16:20)
[2021-09-22] MEDS: oxyCODONE HCl Immed Release 5 MG TABLET PO (16:21)
== END 2021-09-22 17:16 | disposition home or self-care (01) ==
PROVIDERS: Emergency Provider Emergency Medicine; PCP Internal Medicine
DX: M54.16 Radiculopathy, lumbar region (principal); M54.50 Low back pain, unspecified; I10 Essential (primary) hypertension; E78.5 Hyperlipidemia, unspecified; Z79.02 Long term (current) use of antithrombotics/antiplatelets; Z79.899 Other long term (current) drug therapy; Z85.3 Personal history of malignant neoplasm of breast
CPT/HCPCS: 72131; 87086; 87088; 87186; 99283; 99284

== ENCOUNTER 2021-10-13 08:39 | Observation (INO) | payer MEDICARE, SELFPAY ==
--- NOTE | ~2021-10-13 | MR_ITS ---
EXAMINATION: MR LUMBAR SPINE WITHOUT CONTRAST CLINICAL INFORMATION: Intractable back pain. Lower extremity weakness. COMPARISON: None TECHNIQUE: MRI of the lumbar spine was obtained using routine sequences without contrast. FINDINGS: There is chronic superior endplate compression deformity at T11. No acute fractures seen. There is grade 1 retrolisthesis of L1 on L2 and grade 1 anterolisthesis of L3 on L4 measuring up to 6 mm. There is severe disc height loss at L1-L2 and L4-L5 and moderate to severe disc height loss at L3-L4. Endplate edema is seen at T11-T12, L1-L2, L3-L4, and L4-L5. Edema is also present within the bilateral L4 pedicles compatible with stress response. There is heterogeneous bone marrow pattern is seen on the T1 sequence. The distal spinal cord appears normal. The conus medullaris terminates normally at the L1-L2 level. Nonspecific perinephric edema is seen. The posterior paraspinal musculature demonstrates fatty atrophy. SPINAL LEVELS: L1-L2: Disc bulging with ligamentum flavum infolding and facet arthropathy resulting in mild spinal canal stenosis and severe right and moderate left neural foraminal stenosis with significant compression of the exiting right L1 nerve root. L2-L3: Disc bulging with ligamentum flavum infolding and mild facet arthropathy. Left subarticular stenosis and mild spinal canal stenosis. Mild to moderate bilateral neural foraminal stenosis. L3-L4: Disc bulging with posterior unroofing of the disc with ligamentum flavum infolding and severe facet arthropathy resulting in severe spinal canal stenosis with thecal sac compression. Severe left and moderate to severe right neural foraminal stenosis with compression of the exiting left more than right L3 nerve roots. L4-L5: Disc bulging with ligamentum flavum infolding and severe right and moderate left facet arthropathy resulting in mild to moderate spinal canal stenosis with bilateral traversing nerve root compression. Severe left and moderate to severe right neural foraminal stenosis with significant compression of the exiting left L4 nerve root. L5-S1: Disc bulging with central protrusion resulting in compression of the traversing left S1 nerve root. Moderate left and severe right neural foraminal stenosis with significant compression of the exiting right L5 nerve root. MR/MR lumbar spine wo con IMPRESSION: Advanced multilevel degenerative spondylotic changes. Severe spinal canal stenosis with thecal sac compression at L3-L4 in addition to severe left and moderate to severe right neural foraminal stenosis with compression of the left more than right L3 nerve roots. Additional multilevel spinal canal stenosis, subarticular stenosis and neural foraminal stenosis is detailed above. Multilevel endplate edema. Stress response is seen in the bilateral L4 pedicles.
[2021-10-13 08:48] VITALS: BP 170/100; PULSE 75; PULSE 86; RESP 17; TEMP 36.6; O2SAT 98; O2SAT 99; BMI 22.4
[2021-10-13] MEDS: ondansetron HCL 4 MG/2 ML VIAL IVPUSH (09:41)
[2021-10-13] MEDS: Morphine Sulfate 4 MG/ML CARTRIDGE IVPUSH ×2 (09:41→10:45)
--- NOTE | 2021-10-13 09:46 | ED.BACK ---
HPI - Back Pain/Injury General Chief Complaint: Back Pain/Injury Stated Complaint: lower back pain, uti Time Seen by Provider: 10/13/21 09:11 Source: patient, family and EMS Mode of arrival: EMS Limitations: no limitations History of Present Illness HPI Narrative: 86-year-old female with a history of hypertension, migraines, arthritis, chronic UTIs, herniated disc history here with multiple complaints. Per daughter the patient has been dealing with chronic UTIs for the last 2 months. She spoke to the urologist yesterday in the start her on a low-dose Macrobid last night for UTI prevention. The patient tells me she has had continued symptoms of urinary frequency, urgency, suprapubic pressure and discomfort. She is also feeling weak and tired. She denies any associated vomiting or fevers. She does have some nausea which has been chronic for the last 2 months. Patient is also complaining of acute on chronic low back pain. She was scheduled for an outpatient MRI this afternoon with [facility]. However due to pain she was unable to get to her appointment today. Patient tells me that she has had lower back pain worsening over the last 2 months. She was seen here in August and had a CT scan of the lumbar spine which showed (Grade 1 anterolisthesis L3 over L4 and grade 1 retrolisthesis L1 over L2 with endplate sclerosis and spondylosis. Degenerative disc bulges with vacuum disc phenomena at L1-L2, L3-L4, L4-L5 and L5-S1 disc levels. There is left paracentral vacuum disc herniation at L5-S1 disc level and disc bulge/osteophyte complex at L4-L5 disc level with minimal AP canal stenosis.). Patient tells me she has pain which radiates into her bilateral buttocks and down the lateral thighs. She has no associated saddle anesthesia, bowel or bladder incontinence, paresthesias of the lower extremities. She is feeling generally weak. Difficulty ambulating over the last few days due to pain and gen weakness. Taking 50 mg of tramadol p.r.n. and gabapentin 300 mg 3 times a day with continued pain Related Data Home Medications Medication Instructions Recorded Confirmed potassium chloride 10 mEq 10 meq PO Q48H 09/19/20 10/13/21 capsule,extended release pravastatin 20 mg tablet 20 mg PO DAILY 09/19/20 10/13/21 benazepril 10 mg tablet 1 tab PO DAILY 08/31/21 10/13/21 gabapentin 300 mg capsule 600 mg PO TID 08/31/21 10/13/21 hydrochlorothiazide 25 mg tablet 1 tab PO DAILY 10/13/21 10/13/21 nitrofurantoin macrocrystal 100 mg 1 cap PO BEDTIME 10/13/21 10/13/21 capsule Allergies Allergy/AdvReac Type Severity Reaction Status Date / Time promethazine [PROMETHAZINE] AdvReac Unknown AGITATION Verified 08/31/21 09:55 Review of Systems Review of Systems: Yes all other systems are reviewed and are negative Constitutional: Constitutional: Reports no additional constitutional complaints, Denies body ache(s), Denies chills, Denies fever(s), Denies headache(s) and Denies weakness Eyes: Eyes: Reports no additional eye complaints and Denies change in vision ENT: Reports system reviewed and no additional complaints, except as documented, Denies dizziness, Denies headache(s), Denies nasal congestion, Denies nasal discharge and Denies neck pain Cardiovascular: Cardiovascular: Reports no additional cardiovascular complaints, Denies chest pain, Denies leg edema and Denies dyspnea Respiratory: Respiratory: Reports no additional respiratory complaints, Denies cough and Denies dyspnea Gastrointestinal: Gastrointestinal: Reports no additional gastrointestinal complaints, Denies abdominal pain, Denies diarrhea, Denies nausea and Denies vomiting Genitourinary: Genitourinary: Reports no additional female genitourinary complaints, Reports dysuria, Denies flank pain, Denies urinary incontinence, Reports urinary hesitancy and Reports urinary urgency Musculoskeletal: Musculoskeletal: Reports no additional musculoskeletal complaints, Reports back pain, Denies arthralgias, Denies joint swelling, Denies neck pain, Denies numbness and Denies tingling Integumentary/Breasts: Skin/Breast: Reports system reviewed and no additional complaints, except as docu and Denies rash Neurologic: Reports system reviewed and no additional complaints, except as documented, Denies Abnormal speech present, Denies dizziness, Denies headache(s), Denies numbness, Denies tingling and Denies weakness PMFSH Past Medical History Attestation statement: The following information was validated with the patient. Source: old records reviewed and nursing notes reviewed Medical History Arthritis of left knee Breast cancer Hyperlipidemia Hypertension Left knee pain Surgical History History of appendectomy History of cholecystectomy History of hysterectomy History of lumpectomy Social History Social History Household Members: Spouse and Children Housing: House Alcohol intake: never Patient Tobacco Use Status: Never used Tobacco Use of substances other than those prescribed or required for medical reasons: No Advance Directives: No Advance Directives Information Provided: No service: No Current occupational status: retired Current occupation: [employer] Physical Exam Vital Signs: Vital Signs: Last Vital Signs Temp 98.2 F 10/13/21 15:04 Pulse 79 10/13/21 15:04 Resp 14 10/13/21 15:04 BP 155/63 H 10/13/21 15:04 Pulse Ox 96 10/13/21 15:04 BMI result Body Mass Index 22.4 Const: General: cooperative, healthy appearing, comfortable and no acute distress Orientation/consciousness: patient oriented x3 Limitations: no limitations HENMT: Head: Yes normal to inspection Ears: hearing grossly normal bilaterally and TM's normal bilaterally General nose exam: Normal external nose present Face and sinus: Yes normal facial exam Mouth: Normal oral and palatal mucosa present Throat: Yes posterior oropharynx normal, Yes tonsils normal and Yes uvula midline Eyes: General: appearance normal, both eyes and all related structures Pupils: Equal, round and reactive pupils present Neck: Neck: Yes normal visual inspection, Yes full ROM and Yes no lymphadenopathy Chest: Chest palpation & inspection: normal inspection of the chest Resp: Effort & Inspection: normal respiratory effort Auscultation: clear to auscultation bilaterally Cardio: Rate: regular rate Rhythm: regular rhythm Peripheral pulses: Peripheral pulses 2+ throughout GI: Inspection: Yes normal to inspection Palpation (GI): Soft to palpation and nontender Auscultation: normal bowel sounds Back/Spine/Pelvis: Other: Midline lumbar tenderness with no step-offs or deformities. Thoracic/Lumbar Spine: thoracic and lumbar spine normal to inspection Skin: General skin exam: no rashes or lesions noted Neuro: Other: Bilateral lower extremities 4/5 General: patient oriented x3, no focal motor deficits and normal sensation to monofilament Cranial nerves: Yes CN's II-XII intact bilaterally, Yes Equal, round and reactive pupils present, Yes Bilaterally intact EOM present, Yes Nystagmus not present, Yes Normal facial strength present and Yes Midline tongue present Cognition (Neuro): normal cognition Speech: No Abnormal speech present Gait exam (Neuro): Normal gait present Sensory Exam: Normal double simultaneous stimulation for sensation Deep tendon reflexes (DTR's): Right patellar reflex intensity grade: 2+ and Left patellar reflex intensity grade: 2+ Extrem: General: Yes normal to inspection, Yes no pedal edema and Yes no calf tenderness Course Course Course Narrative: 86-year-old female here with multiple complaints. Patient has been complaining of a chronic UTI over the last 2 months. Started on a preventative Macrobid 100 mg yesterday by Urology. Patient continuing to have urinary symptoms in addition to some suprapubic discomfort generalized weakness and nausea. Today increasing weakness with difficulty with ambulation. Patient also done with acute on chronic low back pain with radiation to the bilateral lateral thighs and buttocks. Schedule for outpatient MRI today but unable to make the appointment due to pain as well as weakness. On exam no neurological deficit. Patient denies any red flag symptoms of saddle anesthesia or incontinence. She is quite uncomfortable despite taking her home tramadol and gabapentin. Will check labs, UA, provide analgesia. Patient may require MRI if she does not improve 1030-continued pain. Will re-medicate 1120-continued pain. Will obtain MRI 1315-continued pain. Labs, UA unremarkable. MRI is pending. Will need additional analgesia and likely admission for intractable pain. 1320-MRI IMPRESSION: Advanced multilevel degenerative spondylotic changes. Severe spinal canal stenosis with thecal sac compression at L3-L4 in addition to severe left and moderate to severe right neural foraminal stenosis with compression of the left more than right L3 nerve roots. ? Additional multilevel spinal canal stenosis, subarticular stenosis and neural foraminal stenosis is detailed above. Multilevel endplate edema. Stress response is seen in the bilateral L4 pedicles. -Patient has no saddle anesthesia or bowel or bladder incontinence. She has 4/5 lower extremity strength. DTR normal. No paresthesias. Will need admit for intractable pain. However d/t reports of thecal sac compression will discuss with neurosurgery at [facility] to see if any neurosurgical intervention is warranted. 1330-Spoke to RAFITA Alvarado who will review images and call back 1600-Call back from neurosurgery PA. No need for emergent intervention so transfer is not necessary unless patient develops neurological changes. Call to medicine to discuss for admission. MDM - Back Pain/Injury Medical Records Attestation: I reviewed the patient's medical records. Lab Data Attestation: I reviewed the patient's lab results. Result diagrams: 10/13/21 10:26 10/13/21 10:26 Labs: Lab Results 10/13/21 10/13/21 10/13/21 Range/Units 10:25 10:26 10:26 WBC 6.0 (4.8-10.8) X10*3/uL RBC 4.16 L (4.20-5.50) X10*6/uL Hgb 13.8 (12.0-16.0) g/dl Hct 39.1 (37.0-47.0) % MCV 94.0 (80.0-98.0) fL MCH 33.2 H (27.0-33.0) pg MCHC 35.3 H (31.0-35.0) g/dl RDW 12.1 (11.0-16.0) % Plt Count 203 (160-400) X10*3/uL MPV 9.1 L (9.4-12.3) fL Immature Gran % (Auto) 0.2 (0.0-0.4) % Neut % (Auto) 83.4 H (45-73) % Lymph % (Auto) 9.7 L (20-40) % [place] % (Auto) 5.7 (2-11) % Eos % (Auto) 0.8 (0-4) % Baso % (Auto) 0.2 (0-2) % Lymph # (Auto) 0.6 L (1.2-4.9) X10*3/uL [place] # (Auto) 0.3 (0.1-1.2) X10*3/uL Eos # (Auto) 0.1 (0.0-0.4) X10*3/uL Baso # (Auto) 0.0 (0.0-0.2) X10*3/uL Abs Immat Gran (auto) 0.01 (0.00-0.03) X10*3/uL Absolute Neuts (auto) 5.0 (2.0-8.3) x10*3/uL Absolute Nucleated RBC 0.000 (0.0-0.012) X10*3/uL Nucleated RBC % (auto) 0.0 (0.0-0.2) /100WBC Sodium 132 L (135-145) mmol/L Potassium 3.7 (3.3-5.1) mmol/L Chloride 94 L (96-108) mmol/L Carbon Dioxide 30 H (22-29) mmol/L Anion Gap 12 (12-20) BUN 14 (9-16) mg/dL Creatinine 0.68 (0.5-1.4) mg/dL Estim Creat Clear Calc 48.7 Estimated GFR > 60 Random Glucose 123 H (60-115) mg/dL Lactic Acid 0.8 (0.5-2.0) mmol/L Calcium 9.2 (8.4-10.2) mg/dL Total Bilirubin 0.7 (0.0-1.0) mg/dL Direct Bilirubin 0.3 (0.0-0.5) mg/dL AST 24 (5-31) U/L ALT 26 (0-31) U/L Alkaline Phosphatase 68 (39-117) U/L Total Protein 6.4 L (6.5-8.0) g/dL Albumin 4.0 (3.5-5.0) g/dL Urine Color Urine Appearance Urine pH (5.0-8.0) Ur Specific [place] (1.005-1.025) Urine Protein (NEG-TRACE) MG/DL Urine Glucose (UA) (NEG) MG/DL Urine Ketones (NEG) MG/DL Urine Blood (NEG) Urine Nitrite (NEG) Ur Leukocyte Esterase (NEG) COVID-19 (NELLY) (Negative) COVID-19 Clin Com 10/13/21 10/13/21 Range/Units 11:52 13:26 WBC (4.8-10.8) X10*3/uL RBC (4.20-5.50) X10*6/uL Hgb (12.0-16.0) g/dl Hct (37.0-47.0) % MCV (80.0-98.0) fL MCH (27.0-33.0) pg MCHC (31.0-35.0) g/dl RDW (11.0-16.0) % Plt Count (160-400) X10*3/uL MPV (9.4-12.3) fL Immature Gran % (Auto) (0.0-0.4) % Neut % (Auto) (45-73) % Lymph % (Auto) (20-40) % [place] % (Auto) (2-11) % Eos % (Auto) (0-4) % Baso % (Auto) (0-2) % Lymph # (Auto) (1.2-4.9) X10*3/uL [place] # (Auto) (0.1-1.2) X10*3/uL Eos # (Auto) (0.0-0.4) X10*3/uL Baso # (Auto) (0.0-0.2) X10*3/uL Abs Immat Gran (auto) (0.00-0.03) X10*3/uL Absolute Neuts (auto) (2.0-8.3) x10*3/uL Absolute Nucleated RBC (0.0-0.012) X10*3/uL Nucleated RBC % (auto) (0.0-0.2) /100WBC Sodium (135-145) mmol/L Potassium (3.3-5.1) mmol/L Chloride (96-108) mmol/L Carbon Dioxide (22-29) mmol/L Anion Gap (12-20) BUN (9-16) mg/dL Creatinine (0.5-1.4) mg/dL Estim Creat Clear Calc Estimated GFR Random Glucose (60-115) mg/dL Lactic Acid (0.5-2.0) mmol/L Calcium (8.4-10.2) mg/dL Total Bilirubin (0.0-1.0) mg/dL Direct Bilirubin (0.0-0.5) mg/dL AST (5-31) U/L ALT (0-31) U/L Alkaline Phosphatase (39-117) U/L Total Protein (6.5-8.0) g/dL Albumin (3.5-5.0) g/dL Urine Color YELLOW Urine Appearance CLEAR Urine pH 7.0 (5.0-8.0) Ur Specific [place] 1.015 (1.005-1.025) Urine Protein TRACE (NEG-TRACE) MG/DL Urine Glucose (UA) NEG (NEG) MG/DL Urine Ketones 5 (NEG) MG/DL Urine Blood NEG (NEG) Urine Nitrite NEG (NEG) Ur Leukocyte Esterase NEG (NEG) COVID-19 (NELLY) Negative (Negative) COVID-19 Clin Com See Note Imaging Data MRI lumbar spine: Attestation: I personally reviewed and interpreted this imaging study as follows: Radiologist's impression: IMPRESSION: Advanced multilevel degenerative spondylotic changes. Severe spinal canal stenosis with thecal sac compression at L3-L4 in addition to severe left and moderate to severe right neural foraminal stenosis with compression of the left more than right L3 nerve roots. ? Additional multilevel spinal canal stenosis, subarticular stenosis and neural foraminal stenosis is detailed above. Multilevel endplate edema. Stress response is seen in the bilateral L4 pedicles. Discharge Plan Discharge Clinical Impression: Intractable back pain Patient Disposition: Admitted As Inpatient
[2021-10-13 10:30] LABS: MANUAL DIFF FLAG NO
[2021-10-13 10:34] LABS: Basophils Percent Auto 0.2 % (0-2); Eosinophils Absolute Auto 0.1 X10*3/uL (0.0-0.4); Eosinophils Percent Auto 0.8 % (0-4); Hematocrit 39.1 % (37.0-47.0); Hemoglobin 13.8 g/dl (12.0-16.0); Imm Gran Abs Auto 0.01 X10*3/uL (0.00-0.03); Imm Gran Pct Auto 0.2 % (0.0-0.4); Lymphocytes Absolute Auto 0.6 X10*3/uL (1.2-4.9); Lymphocytes Percent Auto 9.7 % (20-40); Mean Corpuscular HGB Conc 35.3 g/dl (31.0-35.0); Mean Corpuscular Hemoglobin 33.2 pg (27.0-33.0); Mean Platelet Volume 9.1 fL (9.4-12.3); Monocytes Absolute Auto 0.3 X10*3/uL (0.1-1.2); Monocytes Percent Auto 5.7 % (2-11); Neutrophils Percent Auto 83.4 % (45-73); Platelet Count 203 X10*3/uL (160-400); Red Blood Count 4.16 X10*6/uL (4.20-5.50); Red Cell Distribution Width 12.1 % (11.0-16.0)
[2021-10-13 10:37] VITALS: BP 174/88; PULSE 74; RESP 17; O2SAT 96
[2021-10-13] MEDS: 0.9 % Sodium Chloride 500 ML 999 ML IV (10:44)
[2021-10-13] MEDS: Metoclopramide HCl 10 MG/2 ML VIAL IVPUSH (10:45)
[2021-10-13] MEDS: diphenhydrAMINE HCL 50 MG/ML VIAL 25 MG IVPUSH (10:45)
[2021-10-13 10:46] LABS: Lactic Acid 0.8 mmol/L (0.5-2.0)
[2021-10-13 10:51] LABS: Alanine Aminotransferase 26 U/L (0-31); Alkaline Phosphatase 68 U/L (39-117); Anion Gap 12 (12-20); Aspartate Amino Transferase 24 U/L (5-31); Bilirubin Direct 0.3 mg/dL (0.0-0.5); Bilirubin Total 0.7 mg/dL (0.0-1.0); Blood Urea Nitrogen 14 mg/dL (9-16); Calcium 9.2 mg/dL (8.4-10.2); Carbon Dioxide 30 mmol/L (22-29); Chloride 94 mmol/L (96-108); Creatinine Clr Calc Pharmacy 48.7; Estimated Glomerular Filt Rate > 60; Glucose Random 123 mg/dL (60-115); Potassium 3.7 mmol/L (3.3-5.1); Sodium 132 mmol/L (135-145); Total Protein 6.4 g/dL (6.5-8.0)
[2021-10-13 11:38] VITALS: BP 163/68; PULSE 73; RESP 12; O2SAT 96
[2021-10-13 12:02] LABS: Appearance Urine CLEAR; Color Urine YELLOW; Glucose Urine UA NEG (NEG); Leukocyte Esterase Urine NEG (NEG); Nitrite Urine NEG (NEG); Specific Gravity - Urine 1.015 (1.005-1.025); Urine Blood NEG (NEG); Urine Ketones 5 MG/DL (NEG); Urine Protein TRACE MG/DL (NEG-TRACE)
[2021-10-13 13:26] VITALS: BP 167/68; PULSE 87; RESP 18; O2SAT 95
[2021-10-13] MEDS: Acetaminophen 325 MG TABLET 975 MG PO (13:50)
[2021-10-13] MEDS: Ketorolac Tromethamine 30 MG/ML VIAL 15 MG IVPUSH (13:50)
[2021-10-13] MEDS: diazePAM 5 MG TABLET PO (13:50)
[2021-10-13] MEDS: dexAMETHasone sod phosphate 10 MG/ML VIAL IVPUSH (13:50)
[2021-10-13 13:54] LABS: COVID-19 Test Negative (Negative)
[2021-10-13 15:04] VITALS: BP 155/63; PULSE 79; RESP 14; TEMP 36.8; O2SAT 96
--- NOTE | 2021-10-13 17:21 | P.HPHOSP_ITS ---
History of Present Illness Date of Service: 10/13/21 Chief Complaint: back pain 86yo F with HTN, migraines, arthritis, frequent UTIs recently started on prophylactic nitrofurantoin by her urologist, recent mild breakthrough COVID-19 infection, and herniated lumbar disks who presents with worsening of her chronic low back pain over the last 2 months to the point where she can't get out of bed. The pain is severe and radiates down both legs. No saddle anesthesia, bowel or bladder incontinence [though she has chronic urinary urgency], or lower extremity numbness. She has an appointment with [facility] on Saturday and was scheduled for an MRI today, but because her pain was so bad, she came to the hospital. She was recently started on tramadol and gabapentin for the pain with no relief. No fever or chills. No chest pain, dyspnea, or cough. In the ED, an MRI showed advanced degenerative spondylosis with severe spinal stenosis at L3-L4 with severe bilateral foraminal stenosis. The ED PA spoke to a neurosurgery PA, Gigi Alvarado, who reviewed the imaging and the case and did not feel the patient needed urgent neurosurgical intervention. She was given 8mg morphine IV, Toradol, Valium, Tylenol, and Decadron. Review of Systems Review of Systems: Yes all other systems are reviewed and are negative [facility] Medical History Arthritis of left knee Breast cancer Hyperlipidemia Hypertension Left knee pain Pertinent family history: father had CVA Surgical History History of appendectomy History of cholecystectomy History of hysterectomy History of lumpectomy Social History Household Members: Spouse and Children Housing: House Alcohol intake: never Patient Tobacco Use Status: Never used Tobacco Use of substances other than those prescribed or required for medical reasons: No Advance Directives: No Advance Directives Information Provided: No service: No Current occupational status: retired Current occupation: [employer] Meds Allergies Allergy/AdvReac Type Severity Reaction Status Date / Time promethazine [PROMETHAZINE] AdvReac Unknown AGITATION Verified 08/31/21 09:55 Active Medications: Current Medications Acetaminophen (Acetaminophen 325 Mg Tablet) 650 mg PO Q6H PRN PRN Reason: Pain, Mild (Pain Scale 1-3) Hydrocodone Bitart/Acetaminophen (Hydrocodone Bit/Acetam 10/325 Tablet) 1 tab PO Q6H PRN PRN Reason: moderate pain Cyclobenzaprine HCl (Cyclobenzaprine Hcl 5 Mg Tablet) 5 mg PO TID PRN PRN Reason: back pain Enoxaparin Sodium (Enoxaparin Sodium 40 Mg/0.4 Ml Syringe) 40 mg SUBCUT Q24H [facility] Gabapentin (Gabapentin 300 Mg Capsule) 600 mg PO TID [facility] Hydrochlorothiazide (Hydrochlorothiazide 25 Mg Tablet) 25 mg PO DAILY [facility]; Protocol Hydromorphone HCl (Hydromorphone Hcl 0.5 Mg/0.5 Ml Syringe) 0.5 mg IVPUSH Q2H PRN; Protocol PRN Reason: severe pain Lisinopril (Lisinopril 10 Mg Tablet) 10 mg PO DAILY [facility] Ondansetron HCl (Ondansetron Hcl 4 Mg/2 Ml Vial) 4 mg IVPUSH Q8H PRN PRN Reason: Nausea and Vomiting Pharmacy Consult (Consult Rx Perform Med Rec) 1 each MISCELLANE ONCE PRN PRN Reason: Consult order Potassium Chloride (Potassium Chloride Er 10 Meq Capsule.Er) 10 meq PO Q48H [facility] Pravastatin Sodium (Pravastatin Sodium 20 Mg Tablet) 20 mg PO BEDTIME [facility] Sodium Chloride (0.9 % Sodium Chloride Flush 3 Ml Syringe) 3 ml IVFLUSH QSHIFT [facility] Home Medications Medication Instructions Recorded Confirmed Last Taken Type potassium chloride 10 mEq 10 meq PO Q48H 09/19/20 10/13/21 10/11/21 History capsule,extended release pravastatin 20 mg tablet 20 mg PO DAILY 09/19/20 10/13/21 10/12/21 History benazepril 10 mg tablet 1 tab PO DAILY 08/31/21 10/13/21 10/12/21 History gabapentin 300 mg capsule 600 mg PO TID 08/31/21 10/13/21 10/12/21 History hydrochlorothiazide 25 mg tablet 1 tab PO DAILY 10/13/21 10/13/21 10/12/21 History nitrofurantoin macrocrystal 100 mg 1 cap PO BEDTIME 10/13/21 10/13/21 10/12/21 History capsule Physical Exam Vital Signs and Narrative: Vital Signs: Last Vital Signs Temp 98.2 F 10/13/21 15:04 Pulse 79 10/13/21 15:04 Resp 14 10/13/21 15:04 BP 155/63 H 10/13/21 15:04 Pulse Ox 96 10/13/21 15:04 BMI result Body Mass Index 22.4 Gen: in pain but alert and quite pleasant in demeanor HEENT: sclera anicteric, moist mucus membranes Neck: supple Lungs: clear to auscultation bilaterally Heart: regular rate and rhythm, no murmurs Abd: soft, non-tender, non-distended Ext: no edema Skin: warm/well-perfused Neuro: alert and oriented x3, normal strength and sensation in bilateral legs, 2+ patellar and Achilles DTRs, downgoing toes Psych: appropriate affect Results Labs CBC and Chem 7: 10/13/21 10:26 10/13/21 10:26 Labs: Laboratory Results - last 24 hr 10/13/21 10/13/21 10/13/21 10:25 10:26 10:26 MCV 94.0 MCH 33.2 H MCHC 35.3 H RDW 12.1 Plt Count 203 MPV 9.1 L Immature Gran % (Auto) 0.2 Neut % (Auto) 83.4 H Lymph % (Auto) 9.7 L [place] % (Auto) 5.7 Eos % (Auto) 0.8 Baso % (Auto) 0.2 Lymph # (Auto) 0.6 L [place] # (Auto) 0.3 Eos # (Auto) 0.1 Baso # (Auto) 0.0 Abs Immat Gran (auto) 0.01 Absolute Neuts (auto) 5.0 Absolute Nucleated RBC 0.000 Nucleated RBC % (auto) 0.0 Anion Gap 12 Estim Creat Clear Calc 48.7 Estimated GFR > 60 Random Glucose 123 H Lactic Acid 0.8 Calcium 9.2 Total Bilirubin 0.7 Direct Bilirubin 0.3 AST 24 ALT 26 Alkaline Phosphatase 68 Total Protein 6.4 L Albumin 4.0 Urine Color Urine Appearance Urine pH Ur Specific [place] Urine Protein Urine Glucose (UA) Urine Ketones Urine Blood Urine Nitrite Ur Leukocyte Esterase COVID-19 (NELLY) COVID-19 Clin Com 10/13/21 10/13/21 11:52 13:26 MCV MCH MCHC RDW Plt Count MPV Immature Gran % (Auto) Neut % (Auto) Lymph % (Auto) [place] % (Auto) Eos % (Auto) Baso % (Auto) Lymph # (Auto) [place] # (Auto) Eos # (Auto) Baso # (Auto) Abs Immat Gran (auto) Absolute Neuts (auto) Absolute Nucleated RBC Nucleated RBC % (auto) Anion Gap Estim Creat Clear Calc Estimated GFR Random Glucose Lactic Acid Calcium Total Bilirubin Direct Bilirubin AST ALT Alkaline Phosphatase Total Protein Albumin Urine Color YELLOW Urine Appearance CLEAR Urine pH 7.0 Ur Specific [place] 1.015 Urine Protein TRACE Urine Glucose (UA) NEG Urine Ketones 5 Urine Blood NEG Urine Nitrite NEG Ur Leukocyte Esterase NEG COVID-19 (NELLY) Negative COVID-19 Clin Com See Note ITS Impressions Lumbar Spine MRI 10/13/21 12:35 IMPRESSION: Advanced multilevel degenerative spondylotic changes. Severe spinal canal stenosis with thecal sac compression at L3-L4 in addition to severe left and moderate to severe right neural foraminal stenosis with compression of the left more than right L3 nerve roots. Additional multilevel spinal canal stenosis, subarticular stenosis and neural foraminal stenosis is detailed above. Multilevel endplate edema. Stress response is seen in the bilateral L4 pedicles. Imaging Radiologist's Impressions: Impressions Lumbar Spine MRI 10/13/21 12:35 IMPRESSION: Advanced multilevel degenerative spondylotic changes. Severe spinal canal stenosis with thecal sac compression at L3-L4 in addition to severe left and moderate to severe right neural foraminal stenosis with compression of the left more than right L3 nerve roots. Additional multilevel spinal canal stenosis, subarticular stenosis and neural foraminal stenosis is detailed above. Multilevel endplate edema. Stress response is seen in the bilateral L4 pedicles. Assessment and Plan (1) Intractable back pain: Status: Acute 86yo F with chronic back pain presenting with intractable pain from severe spinal canal and foraminal stenosis. # acute/chronic back pain # severe spinal stenosis - no alarm symptoms. admit to M/S on observation, give prn IV hydromorphone vs. PO hydrocodone/APAP, also cyclobenzaprine. continue gabapentin. watch for over-sedation in this elderly pt. PT consultation. has appt with [facility] Saturday. # HTN - continue lisinopril + HCTZ # HLD - pravastatin # frequent UTIs - UA bland. hold off on nitrofurantoin given CrCl <60 # VTE ppx - LMWH # code - full Quality Stroke Does the patient have a stroke diagnosis?: No VTE Prior VTE?: No VTE Risk Level:: Medical - moderate - high VTE Device Contraindication: N/A - Device Ordered VTE Drug Contraindication: N/A - Med Ordered
--- NOTE | 2021-10-13 18:44 | MHC.CM.PN ---
CM met with pt admitted to observation with bed assignment pending. IMAN completed and signed. Copy given and to medical records. Pt has cleaning services arranged through [facility] with [place] agency. HCP not on file. Copy requested. HCP/daughter Phyllis Gonzales ([phone]) and #2 HCP/son Aram Elias ([phone]). Pt lives with of 65 years, Elton Elias ([phone]) and their son, Aram. Aram assists his parents when needed. Pt uses a cane and walker when her back is acting up . Pt is fully vaccinated and boosted with Pfizer. PT evaluation pending. Pt is not interested to going to Acute or [facility]. Is interested in home PT if recommended. D/C plan is home with possible home services. Transportation provided by family. CM to follow for d/c needs.
--- NOTE | 2021-10-13 20:00 | PC.NURSE ---
Assumed care of pt Pt resting on stretcher Pt c/o acute on chronic lower back pain. Pt also headache on lower back of head Moving all extremities AxO x 4, clear and complete sentences Denies any vision changes Will continue to monitor
[2021-10-13 21:03] VITALS: BP 166/73; PULSE 86; RESP 18; TEMP 36.8; O2SAT 93
[2021-10-13] MEDS: Cyclobenzaprine HCl 5 MG TABLET PO (22:12)
[2021-10-13] MEDS: Gabapentin 300 MG CAPSULE 600 MG PO (22:13)
--- NOTE | 2021-10-13 22:45 | PC.NURSE ---
Pt medicated per MAR Pt tolerated well Will continue to monitor
[2021-10-13] MEDS: Acetaminophen 325 MG TABLET 650 MG PO (23:00)
--- NOTE | 2021-10-13 23:00 | PC.NURSE ---
Pt states still c/o headache Pt medicated per DEC Pt tolerated well Will continue to monitor
[2021-10-14] VITALS (7 sets, daily range): BP systolic 159–177; BP diastolic 63–86; PULSE 78–84; RESP 14–24; O2SAT 98
[2021-10-14] MEDS: hydroCHLOROthiazide 25 MG TABLET PO ×2 (00:56→08:59)
[2021-10-14] MEDS: lisinopriL 10 MG TABLET PO ×2 (00:57→08:59)
[2021-10-14] MEDS: 0.9 % Sodium Chloride Flush 3 ML SYRINGE IVFLUSH ×2 (01:03→08:58)
[2021-10-14] MEDS: HYDROmorphone HCl 0.5 MG/0.5 ML SYRINGE IVPUSH ×2 (02:08→10:54)
[2021-10-14] MEDS: ondansetron HCL 4 MG/2 ML VIAL IVPUSH (02:08)
--- NOTE | 2021-10-14 02:15 | PC.NURSE ---
Pt c/o nausea and persistent headache Pt medicated per DEC Pt toleratred well Will continue to monitor
--- NOTE | 2021-10-14 03:49 | PC.NURSE ---
Pt resting on stretcher with eyes closed Breathing even and unlabored No apparent distress Will continue to monitor
[2021-10-14 08:50] LABS: Anion Gap 14 (12-20); Blood Urea Nitrogen 15 mg/dL (9-16); Calcium 9.3 mg/dL (8.4-10.2); Carbon Dioxide 28 mmol/L (22-29); Chloride 96 mmol/L (96-108); Creatinine Clr Calc Pharmacy 43.5; Estimated Glomerular Filt Rate > 60; Glucose Random 149 mg/dL (60-115); Potassium 4.3 mmol/L (3.3-5.1); Sodium 134 mmol/L (135-145)
[2021-10-14] MEDS: Gabapentin 300 MG CAPSULE 600 MG PO (08:59)
--- NOTE | 2021-10-14 11:38 | W.MHC.F2F ---
Service Date Service Date: 10/14/21 Encounter Date of encounter: 10/14/21 Reasons for Services Signs and symptoms assessed: back pain Reason for physical therapy: home safety and mobility, therapeutic exercises, restore joint function, gait/transfer training, assess need for DME, ADL training and energy conservation MD Overseeing Care: Wero Elaine Homebound: Leaving the home is medically contraindicated at this time without the asist of a device and/or another person due th the listed conditions above and below. Reason homebound: unsteady gait / fall risk, pain with ambulation and pain with transfers Certification: Based on the above findings, I certify that this patient is confined to the home and needs intermittent group home care, physical therapy and/or speech therapy, or continues to need occupational therapy. The patient is under my care, and I have initiated the establishment of the plan of care. The patient will be followed by a physician who will periodically review the plan of care.
--- NOTE | 2021-10-14 11:44 | PM.DS ---
DS: Providers Provider Date of Service: 10/14/21 Date of admission: 10/13/21 16:43 Primary care physician: Wero Elaine MD DS: Diagnosis Discharge Diagnosis (1) Intractable back pain: Status: Acute DS: Summary Hospital Course Hospital Course: from my admission history and physical, 10/13/21: 86yo F with HTN, migraines, arthritis, frequent UTIs recently started on prophylactic nitrofurantoin by her urologist, recent mild breakthrough COVID-19 infection, and herniated lumbar disks who presents with worsening of her chronic low back pain over the last 2 months to the point where she can't get out of bed.? The pain is severe and radiates down both legs.? No saddle anesthesia, bowel or bladder incontinence [though she has chronic urinary urgency], or lower extremity numbness.? She has an appointment with [facility] on Saturday and was scheduled for an MRI today, but because her pain was so bad, she came to the hospital.? She was recently started on tramadol and gabapentin for the pain with no relief. No fever or chills.? No chest pain, dyspnea, or cough. In the ED, an MRI showed advanced degenerative spondylosis with severe spinal stenosis at L3-L4 with severe bilateral foraminal stenosis.? The ED PA spoke to a neurosurgery PA, Gigi Alvarado, who reviewed the imaging and the case and did not feel the patient needed urgent neurosurgical intervention.? She was given 8mg morphine IV, Toradol, Valium, Tylenol, and Decadron. The patient was admitted to the medical/surgical unit on observation. She was given IV hydromorphone and PO hydrocodone/APAP and cyclobenzaprine for pain. She improved markedly. She was seen by PT. She was discharged home with [facility]/home PT services and will follow up with [facility] as scheduled 10/16/21. Given CrCl<60, recommend stopping nitrofurantoin for UTI prophylaxis. Time Spent with Patient Time attestation: Total time spent providing and/or coordinating discharge services: Discharge coordination time: Less than 30 minutes Quality: Stroke Does the patient have a stroke diagnosis?: No Physical Exam Vital Signs: Vital Signs: Last Vital Signs Temp 98.3 F 10/13/21 21:03 Pulse 84 10/14/21 09:52 Resp 14 10/14/21 08:58 BP 159/82 H 12/18/21 09:52 Pulse Ox 98 10/14/21 08:58 BMI result Body Mass Index 22.4 Gen: in no acute distress HEENT: sclera anicteric, moist mucus membranes Neck: supple Lungs: clear to auscultation bilaterally Heart: regular rate and rhythm, no murmurs Abd: soft, non-tender, non-distended Ext: no edema Skin: warm/well-perfused Neuro: alert and oriented x3, no focal findings Psych: appropriate affect DS: Data Data Completed and Pending Completed studies during hospitalization [Text1]: Laboratory Results WBC 6.0 X10*3/uL (4.8-10.8) 10/13/21 10:26 RBC 4.16 X10*6/uL (4.20-5.50) L 10/13/21 10:26 Hgb 13.8 g/dl (12.0-16.0) 10/13/21 10:26 Hct 39.1 % (37.0-47.0) 10/13/21 10:26 MCV 94.0 fL (80.0-98.0) 10/13/21 10:26 MCH 33.2 pg (27.0-33.0) H 10/13/21 10:26 MCHC 35.3 g/dl (31.0-35.0) H 10/13/21 10:26 RDW 12.1 % (11.0-16.0) 10/13/21 10:26 Plt Count 203 X10*3/uL (160-400) 10/13/21 10:26 MPV 9.1 fL (9.4-12.3) L 10/13/21 10:26 Immature Gran % (Auto) 0.2 % (0.0-0.4) 10/13/21 10:26 Neut % (Auto) 83.4 % (45-73) H 10/13/21 10:26 Lymph % (Auto) 9.7 % (20-40) L 10/13/21 10:26 [place] % (Auto) 5.7 % (2-11) 10/13/21 10:26 Eos % (Auto) 0.8 % (0-4) 10/13/21 10:26 Baso % (Auto) 0.2 % (0-2) 10/13/21 10:26 Lymph # (Auto) 0.6 X10*3/uL (1.2-4.9) L 10/13/21 10:26 [place] # (Auto) 0.3 X10*3/uL (0.1-1.2) 10/13/21 10:26 Eos # (Auto) 0.1 X10*3/uL (0.0-0.4) 10/13/21 10:26 Baso # (Auto) 0.0 X10*3/uL (0.0-0.2) 10/13/21 10:26 Abs Immat Gran (auto) 0.01 X10*3/uL (0.00-0.03) 10/13/21 10:26 Absolute Neuts (auto) 5.0 x10*3/uL (2.0-8.3) 10/13/21 10: Absolute Nucleated RBC 0.000 X10*3/uL (0.0-0.012) 10/13/21 10:26 Nucleated RBC % (auto) 0.0 /100WBC (0.0-0.2) 10/13/21 10:26 Sodium 134 mmol/L (135-145) L 10/14/21 07:54 Potassium 4.3 mmol/L (3.3-5.1) 10/14/21 07:54 Chloride 96 mmol/L (96-108) 10/14/21 07:54 Carbon Dioxide 28 mmol/L (22-29) 10/14/21 07:54 Anion Gap 14 (12-20) 10/14/21 07:54 BUN 15 mg/dL (9-16) 10/14/21 07:54 Creatinine 0.76 mg/dL (0.5-1.4) 10/14/21 07:54 Estim Creat Clear Calc 43.5 10/14/21 07:54 Estimated GFR > 60 10/14/21 07:54 Random Glucose 149 mg/dL (60-115) H 10/14/21 07:54 Lactic Acid 0.8 mmol/L (0.5-2.0) 10/13/21 10:25 Calcium 9.3 mg/dL (8.4-10.2) 10/14/21 07:54 Total Bilirubin 0.7 mg/dL (0.0-1.0) 10/13/21 10:26 Direct Bilirubin 0.3 mg/dL (0.0-0.5) 10/13/21 10:26 AST 24 U/L (5-31) 10/13/21 10:26 ALT 26 U/L (0-31) 10/13/21 10:26 Alkaline Phosphatase 68 U/L (39-117) 10/13/21 10:26 Total Protein 6.4 g/dL (6.5-8.0) L 10/13/21 10:26 Albumin 4.0 g/dL (3.5-5.0) 10/13/21 10:26 Urine Color YELLOW 10/13/21 11:52 Urine Appearance CLEAR 10/13/21 11:52 Urine pH 7.0 (5.0-8.0) 10/13/21 11:52 Ur Specific [place] 1.015 (1.005-1.025) 10/13/21 11:52 Urine Protein TRACE MG/DL (NEG-TRACE) 10/13/21 11:52 Urine Glucose (UA) NEG MG/DL (NEG) 10/13/21 11:52 Urine Ketones 5 MG/DL (NEG) 10/13/21 11:52 Urine Blood NEG (NEG) 10/13/21 11:52 Urine Nitrite NEG (NEG) 10/13/21 11:52 Ur Leukocyte Esterase NEG (NEG) 10/13/21 11:52 COVID-19 (NELLY) Negative (Negative) 10/13/21 13:26 COVID-19 Clin Com See Note 10/13/21 13:26 Impressions Lumbar Spine MRI 10/13/21 12:35 IMPRESSION: Advanced multilevel degenerative spondylotic changes. Severe spinal canal stenosis with thecal sac compression at L3-L4 in addition to severe left and moderate to severe right neural foraminal stenosis with compression of the left more than right L3 nerve roots. Additional multilevel spinal canal stenosis, subarticular stenosis and neural foraminal stenosis is detailed above. Multilevel endplate edema. Stress response is seen in the bilateral L4 pedicles. Discharge Plan Discharge Patient Disposition: Home Health Service Discharge Diagnosis: severe spinal stenosis Referrals: Wero Elaine MD [Primary Care Provider] - 1 Week Discharge Medications: New cyclobenzaprine 5 mg Tablet 5 mg PO TID PRN (Reason: back pain) Qty: 30 RF: 0 hydrocodone-acetaminophen 5-300 mg tablet 1 tab PO Q6H PRN (Reason: severe pain (scale score 7-10)) Qty: 20 RF: 0 Continued gabapentin 300 mg capsule 600 mg PO TID RF: 0 benazepril 10 mg tablet 1 tab PO DAILY RF: 0 hydrochlorothiazide 25 mg tablet 1 tab PO DAILY RF: 0 potassium chloride 10 mEq capsule, extended release 10 meq PO Q48H RF: 0 pravastatin 20 mg tablet 20 mg PO DAILY RF: 0 Discontinued nitrofurantoin macrocrystal 100 mg capsule 1 cap PO BEDTIME RF: 0 Discharge Orders: Discharge Order (Routine); Ordered 10/14/21 Ordered By: Selvin Barnett Diet: advance to usual diet Activity on Discharge: As tolerated Stand Alone Forms: Patient Portal Discharge page Care Plan Goals: relief of back pain Health Concerns: severe spinal stenosis Plan of Treatment: take cyclobenzaprine 5 mg 3x as needed for back muscle spasm take hydrocodone/APAP 5/300mg every 6 hours as needed for severe pain follow up with [facility] as scheduled 10/16/21 home physical therapy recommend stopping nitrofurantoin due to creatinine clearance less then 60 Assessment: see Discharge Summary Patient Instructions: Lumbar Spinal Stenosis (DC)
== END 2021-10-14 12:54 | disposition home health service (06) ==
LOC: HO.ED 09:46 → HO.EDOVER 16:53
PROVIDERS: Nurse Practitioner Family; Admitting Provider Family Medicine; Emergency Provider Emergency Medicine; PCP Internal Medicine; Visit Provider Family Medicine
DX: M54.9 Dorsalgia, unspecified (principal); M47.816 Spondylosis without myelopathy or radiculopathy, lumbar region; M48.061 Spinal stenosis, lumbar region without neurogenic claudication; N39.0 Urinary tract infection, site not specified; R11.0 Nausea; I10 Essential (primary) hypertension; G43.909 Migraine, unspecified, not intractable, without status migrainosus; R26.81 Unsteadiness on feet; E78.5 Hyperlipidemia, unspecified; U09.9 Post COVID-19 condition, unspecified; Z20.822 Contact with and (suspected) exposure to COVID-19; Z91.81 History of falling; Z88.8 Allergy status to other drugs, medicaments and biological substances
CPT/HCPCS: 36415; 72148; 80048; 80076; 81003; 83605; 85025; 87040; 87635; 96372; 96374; 96375; 96376; 97161; 99218; 99285; J1100; J1170; J1200; J1885; J2270; J2405; J2765

== ENCOUNTER 2022-03-09 16:16 | Emergency (ER) | payer MEDICARE, SELFPAY ==
[2022-03-09] VITALS (8 sets, daily range): BP systolic 173–205; BP diastolic 80–100; PULSE 57–78; RESP 14–18; O2SAT 98–100; BMI 25.1
--- NOTE | ~2022-03-09 | XR_ITS ---
EXAMINATION: XR CHEST CLINICAL INFORMATION: Generalized weakness. COMPARISON: 08/31/2021 chest radiograph. TECHNIQUE: Frontal view of the chest was obtained. FINDINGS: Subtle opacities are seen medially in the right lower lung in the perihilar region. Left lung is clear. The heart and mediastinal structures are unremarkable. XR/XR chest 1V IMPRESSION: Subtle opacities medially in the right lower lung could be projectional representing summation of overlapping structures. Infiltrates cannot be excluded.
--- NOTE | ~2022-03-09 | XR_ITS ---
EXAMINATION: XR CHEST CLINICAL INFORMATION: Lateral view COMPARISON: Same day study TECHNIQUE: Single lateral view of the chest was obtained. FINDINGS: There is no effusion demonstrated. Degenerative change in the thoracic spine but no compression injury. XR/XR chest 1V IMPRESSION: No acute finding on the lateral study. Still there are subtle opacities in the right lower lung zone on the AP film and small areas of infiltrate still need to be considered. Follow-up films would be recommended after treatment to assess for resolution and establish baseline.
--- NOTE | ~2022-03-09 | CT_ITS ---
EXAMINATION: CT HEAD WITHOUT CONTRAST CLINICAL INFORMATION: Hypertension, headache. COMPARISON: CT and CTA head both dated 08/31/2021. TECHNIQUE: Contiguous axial imaging was performed from the skull base to vertex without intravenous administration of contrast. Coronal and sagittal reformatted images were obtained. This CT examination was performed using dose optimization techniques as appropriate, variously including the following: *Automated exposure control *Adjustment of mA and/or kV according to patient size (this includes techniques or standardized protocols for targeted exams where dose is matched to indication/reason for exam; i.e. extremities or head) *Use of iterative reconstruction technique DLP: 606 mGy-cm FINDINGS: There is mild widening of the cortical sulci and associated ventriculomegaly. Mild periventricular microvascular changes are seen. 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 The lateral ventricles are symmetrical. The third and fourth ventricles are in their normal midline position. The basilar and prepontine cisterns are unremarkable. There is no acute intra or extracerebral abnormality. There is no mass effect or midline shift. Sections through the bony calvarium are unremarkable. The orbits are intact. The paranasal sinuses are clear. The mastoid air cells are clear. CT/CT head/brain wo con IMPRESSION: No acute intracranial pathology.
--- NOTE | 2022-03-09 16:37 | ECG_ITS ---
Test Reason : WEAKNESS Blood Pressure : / mmHG Vent. Rate : 070 BPM Atrial Rate : 070 BPM P-R Int : 196 ms QRS Dur : 126 ms QT Int : 452 ms P-R-T Axes : 058 -57 -04 degrees QTc Int : 488 ms Normal sinus rhythm Left axis deviation Right bundle branch block Abnormal ECG When compared with ECG of 31-AUG-2021 10:33, T wave inversion now evident in Anterior leads Referred By: Candace Ayers Electronically Signed By:YOHANA BUSTAMANTE MD
--- NOTE | 2022-03-09 16:37 | ED_ITS ---
HPI - Nausea/Vomiting/Diarrhea General Chief complaint: Nausea/Vomiting/Diarrhea Stated complaint: n/v, not feeling well Time Seen by Provider: 03/09/22 16:25 Source: patient Mode of arrival: ambulatory History of Present Illness HPI Narrative: 86-year-old female with a past medical history of arthritis, breast CA s/p lumpectomy, HLD, HTN, presenting to the ED complaining of generalized fatigue / weakness, nausea, diarrhea, urinary frequency, and poor p.o. intake x9 days. Also reports about 10 lb weight loss in the past 3 weeks. admits to mild posterior headache. Admits saw PCP 2 days ago. denies fever, chills, cough, chest pain, shortness of breath, abdominal pain, bloody/black stools, vomiting, hematuria MD elicited complaint: nausea and diarrhea Onset (ago): day(s) Related Data Home Medications Medication Instructions Recorded Confirmed potassium chloride 10 mEq 10 meq PO Q48H 09/19/20 10/13/21 capsule,extended release pravastatin 20 mg tablet 20 mg PO DAILY 09/19/20 10/13/21 benazepril 10 mg tablet 1 tab PO DAILY 08/31/21 10/13/21 gabapentin 300 mg capsule 600 mg PO TID 08/31/21 10/13/21 hydrochlorothiazide 25 mg tablet 1 tab PO DAILY 10/13/21 10/13/21 Previous Rx's Medication Instructions Recorded cyclobenzaprine 5 mg tablet 5 mg PO TID PRN #30 tab 10/14/21 hydrocodone 5 mg-acetaminophen 300 1 tab PO Q6H PRN #20 tab 10/14/21 mg tablet azithromycin 250 mg tablet See Rx Instructions .ROUTE 03/09/22 .COMPLEX #6 tab cefpodoxime 200 mg tablet 200 mg PO BID 7 Days #14 tab 03/09/22 Allergies Allergy/AdvReac Type Severity Reaction Status Date / Time promethazine [PROMETHAZINE] AdvReac Unknown AGITATION Verified 08/31/21 09:55 Review of Systems Review of Systems: Constitutional: No Fever, No Chills, No Night Sweats, + Fatigue, + Malaise ENT/Mouth: No Ear Pain, No Nasal Congestion, No sore throat, No Rhinorrhea, No Swallowing Difficulty Eyes: No Eye Pain, No Swelling, No Redness Cardiovascular: No Chest Pain, No SOB, No Dyspnea on Exertion, No Orthopnea, No Edema, No Palpitations Respiratory: No Cough, No Sputum, No Dyspnea Gastrointestinal: + Nausea, No Vomiting, + Diarrhea, No Constipation, No Abdominal pain, No Hematochezia, No Melena Genitourinary: No Dysuria, + Urinary Frequency, No Hematuria, No Urinary Incontinence/retention, No Urgency, No Flank Pain, No Urinary Flow Changes, No Hesitancy Musculoskeletal: No joint pain, No Myalgias, No Joint Swelling Skin: No Skin Lesions, No rash Neuro: + Weakness, No Numbness, No Loss of Consciousness, No Dizziness, No Headache Yes all other systems are reviewed and are negative Neurologic: Denies Abnormal speech present [facility] Past Medical History Attestation statement: The following information was validated with the patient. Medical History Arthritis of left knee Breast cancer Hyperlipidemia Hypertension Left knee pain Surgical History History of appendectomy History of cholecystectomy History of hysterectomy History of lumpectomy Social History Social History Household Members: Spouse and Children Housing: House Alcohol intake: never Patient Tobacco Use Status: Never used Tobacco Advance Directives: No Advance Directives Information Provided: No service: No Current occupational status: retired Current occupation: [employer] Physical Exam Vital Signs: Vital Signs: Last Vital Signs Pulse 57 03/09/22 20:07 Resp 15 03/09/22 18:46 BP 200/80 H 03/09/22 20:10 Pulse Ox 98 03/09/22 20:07 BMI result Body Mass Index 25.1 Const: General: cooperative, healthy appearing, no acute distress, alert, awake and Physically active Orientation/consciousness: patient oriented x3 Limitations: no limitations HEENT: Head: Yes normal to inspection and Yes atraumatic Ears: hearing grossly normal bilaterally General nose exam: Normal external nose present Face and sinus: Yes normal facial exam Eyes: General: appearance normal, both eyes and all related structures Pupils: Equal, round and reactive pupils present EOM: EOMs intact bilaterally Neck: Neck: Yes normal visual inspection and Yes no meningeal signs Resp: Effort & Inspection: normal respiratory effort and no respiratory distress Auscultation: clear to auscultation bilaterally, no rales, no rhonchi and no wheezes Cardio: Rate: regular rate Heart sounds: S1 normal heart sound present and S2 normal heart sound present GI: Inspection: Yes normal to inspection Palpation (GI): Soft to palpation, nontender, no guarding and not rigid : General: Yes no CVA tenderness Back/Spine/Pelvis: Back: no CVA tenderness Skin: Rashes: no rashes Wounds: no wounds Neuro: General: patient oriented x3, gait normal, tone normal, moves all extremities, no meningeal signs, no focal motor deficits and CN's II-XI intact bilaterally Cranial nerves: Yes CN's II-XII intact bilaterally, Yes Equal, round and reactive pupils present and Yes Bilaterally intact EOM present Cognition (Neuro): normal cognition Speech: No Abnormal speech present Extrem: General: Yes normal to inspection and Yes no pedal edema Course Course Course Narrative: - patient persistently hypertensive. Confirmed with daughter that patient was given antihypertensives this morning. Will give 100 mg of p.o. Lopressor - magnesium mildly low at 1.5 > p.o. repletion ordered. Troponin elevated to 19.4 (previously elevated) > will obtain 3 hour repeat - UA infected. Will give IV ceftriaxone - COVID-[address] head/brain wo con IMPRESSION: No acute intracranial pathology. XR chest 1V IMPRESSION: No acute finding on the lateral study. Still there are subtle opacities in the right lower lung zone on the AP film and small areas of infiltrate still need to be considered. Follow-up films would be recommended after treatment to assess for resolution and establish baseline. > Azithromycin added -CURB-65 score =1 ( low risk, consider outpatient therapy) -1845-- no leukocytosis - repeat troponin without rise, mi unlikely -2038-- confusion with patient's home medications, per chart review is on amlodipine/ benazepril. however per daughter now states patient only takes 25mg HCTZ at night. Patient was already given 100 mg of Lopressor in ED without improvement in BP > will now give 20 mg of lisinopril. Case was discussed with Dr. Martínez - held delmy to figure out patient's medications, now on repeat BP 174/84, will hold and do additional repeat BP. Confirmed with patient's son patient was stopped on amlodipine and also amlodipine/ benazepril and started on HCTZ which is the only BP medication she is currently taking (patient did not take her HCTZ today) -2215-- repeat BP now 115/91. Had lengthy discussion with patient and daughter at bedside including worrisome signs and symptoms and strict return precautions in the ED close follow-up with PCP. will not change patient's antihypertensive at this time. Recommended repeat BP for the next 3 days MDM - Nausea/Vomiting/Diarrhea MDM Narrative Medical decision making narrative: 86-year-old female with a past medical history of arthritis, breast CA s/p lumpectomy, HLD, HTN, presenting to the ED complaining of generalized fatigue / weakness, nausea, diarrhea, urinary frequency, and poor p.o. intake x9 days. On exam hypertensive (unclear if patient took home medications today) , NAD/ nontoxic appearing, lungs CTA, abdomen soft/ nontender, no focal neuro deficits. Concern for dehydration/metabolic abnormalities versus infectious etiology including viral illness / COVID-19/influenza. Concern for hypertensive urgency. Lower concern for hypertensive emergency. Plan: EKG, labs, UA, CXR, head CT, IVF, re-evaluate Differential Diagnosis Differential diagnosis: Likely gastroenteritis and dehydration Medical Records Attestation: I reviewed the patient's medical records. Lab Data Attestation: I reviewed the patient's lab results. Result diagrams: 03/09/22 17:36 03/09/22 17:36 Labs: Lab Results 03/09/22 03/09/22 03/09/22 Range/Units 17:05 17:36 17:36 WBC 4.8 (4.8-10.8) X10*3/uL RBC 4.24 (4.20-5.50) X10*6/uL Hgb 13.4 (12.0-16.0) g/dl Hct 37.8 (37.0-47.0) % MCV 89.2 (80.0-98.0) fL MCH 31.6 (27.0-33.0) pg MCHC 35.4 H (31.0-35.0) g/dl RDW 11.7 (11.0-16.0) % Plt Count TNP MPV 10.9 (9.4-12.3) fL Immature Gran % (Auto) 0.2 (0.0-0.4) % Neut % (Auto) 67.3 (45-73) % Lymph % (Auto) 21.4 (20-40) % [place] % (Auto) 9.4 (2-11) % Eos % (Auto) 1.5 (0-4) % Baso % (Auto) 0.2 (0-2) % Lymph # (Auto) 1.0 L (1.2-4.9) X10*3/uL [place] # (Auto) 0.5 (0.1-1.2) X10*3/uL Eos # (Auto) 0.1 (0.0-0.4) X10*3/uL Baso # (Auto) 0.0 (0.0-0.2) X10*3/uL Abs Immat Gran (auto) 0.01 (0.00-0.03) X10*3/uL Absolute Neuts (auto) 3.2 (2.0-8.3) x10*3/uL Absolute Nucleated RBC 0.000 (0.0-0.012) X10*3/uL Nucleated RBC % (auto) 0.0 (0.0-0.2) /100WBC Smear Tech's Comments VERIFIED Sodium 139 (135-145) mmol/L Potassium 3.4 D (3.3-5.1) mmol/L Chloride 99 (96-108) mmol/L Carbon Dioxide 30 H (22-29) mmol/L Anion Gap 13 (12-20) BUN 13 (9-16) mg/dL Creatinine 0.74 (0.5-1.4) mg/dL Estim Creat Clear Calc 49.0 Estimated GFR > 60 Random Glucose 98 (60-115) mg/dL Lactic Acid (0.5-2.0) mmol/L Calcium 9.4 (8.4-10.2) mg/dL Magnesium 1.5 L (1.6-2.6) mg/dL Total Bilirubin 0.8 (0.0-1.0) mg/dL Direct Bilirubin 0.3 (0.0-0.5) mg/dL AST 22 (5-31) U/L ALT 24 (0-31) U/L Alkaline Phosphatase 68 (39-117) U/L Troponin I High Sens (<3.5-17.0) ng/L B-Natriuretic Peptide (<100) pg/mL Total Protein 6.5 (6.5-8.0) g/dL Albumin 4.0 (3.5-5.0) g/dL Lipase 42 (8-78) U/L Urine Color YELLOW Urine Appearance HAZY Urine pH 7.5 (5.0-8.0) Ur Specific [place] 1.010 (1.005-1.025) Urine Protein TRACE (NEG-TRACE) MG/DL Urine Glucose (UA) NEG (NEG) MG/DL Urine Ketones NEG (NEG) MG/DL Urine Blood NEG (NEG) Urine Nitrite POS H (NEG) Ur Leukocyte Esterase 2+ H (NEG) Urine RBC 0 (0) /HPF Urine WBC 10-14 H (0-4) /HPF Ur Squamous Epith Cells 2+ /LPF Urine Bacteria 4+ /LPF COVID-19 (NELLY) (Negative) COVID-19 Clin Com Influenza Type A (HUSAM) (Negative) Influenza Type B (HUSAM) (Negative) Influenza A & B Note 03/09/22 03/09/22 03/09/22 Range/Units 17:36 17:36 17:38 WBC (4.8-10.8) X10*3/uL RBC (4.20-5.50) X10*6/uL Hgb (12.0-16.0) g/dl Hct (37.0-47.0) % MCV (80.0-98.0) fL MCH (27.0-33.0) pg MCHC (31.0-35.0) g/dl RDW (11.0-16.0) % Plt Count MPV (9.4-12.3) fL Immature Gran % (Auto) (0.0-0.4) % Neut % (Auto) (45-73) % Lymph % (Auto) (20-40) % [place] % (Auto) (2-11) % Eos % (Auto) (0-4) % Baso % (Auto) (0-2) % Lymph # (Auto) (1.2-4.9) X10*3/uL [place] # (Auto) (0.1-1.2) X10*3/uL Eos # (Auto) (0.0-0.4) X10*3/uL Baso # (Auto) (0.0-0.2) X10*3/uL Abs Immat Gran (auto) (0.00-0.03) X10*3/uL Absolute Neuts (auto) (2.0-8.3) x10*3/uL Absolute Nucleated RBC (0.0-0.012) X10*3/uL Nucleated RBC % (auto) (0.0-0.2) /100WBC Smear Tech's Comments Sodium (135-145) mmol/L Potassium (3.3-5.1) mmol/L Chloride (96-108) mmol/L Carbon Dioxide (22-29) mmol/L Anion Gap (12-20) BUN (9-16) mg/dL Creatinine (0.5-1.4) mg/dL Estim Creat Clear Calc Estimated GFR Random Glucose (60-115) mg/dL Lactic Acid 1.3 (0.5-2.0) mmol/L Calcium (8.4-10.2) mg/dL Magnesium (1.6-2.6) mg/dL Total Bilirubin (0.0-1.0) mg/dL Direct Bilirubin (0.0-0.5) mg/dL AST (5-31) U/L ALT (0-31) U/L Alkaline Phosphatase (39-117) U/L Troponin I High Sens 19.4 H (<3.5-17.0) ng/L B-Natriuretic Peptide 87 (<100) pg/mL Total Protein (6.5-8.0) g/dL Albumin (3.5-5.0) g/dL Lipase (8-78) U/L Urine Color Urine Appearance Urine pH (5.0-8.0) Ur Specific [place] (1.005-1.025) Urine Protein (NEG-TRACE) MG/DL Urine Glucose (UA) (NEG) MG/DL Urine Ketones (NEG) MG/DL Urine Blood (NEG) Urine Nitrite (NEG) Ur Leukocyte Esterase (NEG) Urine RBC (0) /HPF Urine WBC (0-4) /HPF Ur Squamous Epith Cells /LPF Urine Bacteria /LPF COVID-19 (NELLY) (Negative) COVID-19 Clin Com Influenza Type A (HUSAM) Negative (Negative) Influenza Type B (HUSAM) Negative (Negative) Influenza A & B Note See Note 03/09/22 03/09/22 Range/Units 17:38 20:39 WBC (4.8-10.8) X10*3/uL RBC (4.20-5.50) X10*6/uL Hgb (12.0-16.0) g/dl Hct (37.0-47.0) % MCV (80.0-98.0) fL MCH (27.0-33.0) pg MCHC (31.0-35.0) g/dl RDW (11.0-16.0) % Plt Count MPV (9.4-12.3) fL Immature Gran % (Auto) (0.0-0.4) % Neut % (Auto) (45-73) % Lymph % (Auto) (20-40) % [place] % (Auto) (2-11) % Eos % (Auto) (0-4) % Baso % (Auto) (0-2) % Lymph # (Auto) (1.2-4.9) X10*3/uL [place] # (Auto) (0.1-1.2) X10*3/uL Eos # (Auto) (0.0-0.4) X10*3/uL Baso # (Auto) (0.0-0.2) X10*3/uL Abs Immat Gran (auto) (0.00-0.03) X10*3/uL Absolute Neuts (auto) (2.0-8.3) x10*3/uL Absolute Nucleated RBC (0.0-0.012) X10*3/uL Nucleated RBC % (auto) (0.0-0.2) /100WBC Smear Tech's Comments Sodium (135-145) mmol/L Potassium (3.3-5.1) mmol/L Chloride (96-108) mmol/L Carbon Dioxide (22-29) mmol/L Anion Gap (12-20) BUN (9-16) mg/dL Creatinine (0.5-1.4) mg/dL Estim Creat Clear Calc Estimated GFR Random Glucose (60-115) mg/dL Lactic Acid (0.5-2.0) mmol/L Calcium (8.4-10.2) mg/dL Magnesium (1.6-2.6) mg/dL Total Bilirubin (0.0-1.0) mg/dL Direct Bilirubin (0.0-0.5) mg/dL AST (5-31) U/L ALT (0-31) U/L Alkaline Phosphatase (39-117) U/L Troponin I High Sens 20.1 H (<3.5-17.0) ng/L B-Natriuretic Peptide (<100) pg/mL Total Protein (6.5-8.0) g/dL Albumin (3.5-5.0) g/dL Lipase (8-78) U/L Urine Color Urine Appearance Urine pH (5.0-8.0) Ur Specific [place] (1.005-1.025) Urine Protein (NEG-TRACE) MG/DL Urine Glucose (UA) (NEG) MG/DL Urine Ketones (NEG) MG/DL Urine Blood (NEG) Urine Nitrite (NEG) Ur Leukocyte Esterase (NEG) Urine RBC (0) /HPF Urine WBC (0-4) /HPF Ur Squamous Epith Cells /LPF Urine Bacteria /LPF COVID-19 (NELLY) Negative (Negative) COVID-19 Clin Com See Note Influenza Type A (HUSAM) (Negative) Influenza Type B (HUSAM) (Negative) Influenza A & B Note ECG Data Attestation: I personally reviewed and interpreted this ECG as follows: ECG interpretation date: 03/09/22 ECG interpretation time: 17:12 Interpretation: EKG normal sinus rhythm with a rate of 70. Right bundle branch block. T-wave inversions no evident in anterior leads. No STEMI Discharge Plan Discharge Clinical Impression: UTI (urinary tract infection), Pneumonia Patient Disposition: Home, Self-Care Instructions: Pneumonia (ED), Urinary Tract Infection in Older Adults (ED) Additional Instructions: you have a urinary tract infection as well as a small pneumonia. Azithromycin and cefpodoxime or antibiotics please take as prescribed. Her blood pressure is very elevated today in the emergency department, continue home prescribed medications, monitor blood pressure closely. Please follow-up with her PCP. If her symptoms persist or worsen, you have fever, shortness of breath, abdominal pain, lightheadedness/ dizziness, her blood pressure is very high or very low please return to the emergency department Prescriptions: New cefpodoxime 200 mg tablet 200 mg PO BID 7 Days Qty: 14 0RF Rx Instructions: must administer with a meal/food azithromycin 250 mg tablet See Rx Instructions .ROUTE .COMPLEX Qty: 6 0RF Rx Instructions: take 500 mg today (day 1), then 250 mg for 4 days (days 2-5) No Action gabapentin 300 mg capsule 600 mg PO TID 0RF benazepril 10 mg tablet 1 tab PO DAILY 0RF hydrochlorothiazide 25 mg tablet 1 tab PO DAILY 0RF cyclobenzaprine 5 mg Tablet 5 mg PO TID PRN (Reason: back pain) Qty: 30 0RF hydrocodone-acetaminophen 5-300 mg tablet 1 tab PO Q6H PRN (Reason: severe pain (scale score 7-10)) Qty: 20 0RF potassium chloride 10 mEq capsule, extended release 10 meq PO Q48H 0RF pravastatin 20 mg tablet 20 mg PO DAILY 0RF Referrals: Wero Elaine MD [Primary Care Provider] - 2 days
[2022-03-09 17:17] LABS: Appearance Urine HAZY; Color Urine YELLOW; Glucose Urine UA NEG (NEG); Leukocyte Esterase Urine 2+ (NEG); Nitrite Urine POS (NEG); PH 7.5 (5.0-8.0); UACC Culture Trigger YES; Urine Blood NEG (NEG); Urine Ketones NEG (NEG); Urine Protein TRACE MG/DL (NEG-TRACE)
[2022-03-09 17:25] LABS: Bacteria Urine 4+ /LPF; RBC Urine 0 /HPF (0); Squamous Epithelial Cell Urine 2+ /LPF
[2022-03-09] MEDS: 0.9 % Sodium Chloride 1,000 ML 999 ML IV (17:26)
[2022-03-09] MEDS: ondansetron HCL 4 MG/2 ML VIAL IVPUSH (17:26)
[2022-03-09 18:01] LABS: Lactic Acid 1.3 mmol/L (0.5-2.0)
[2022-03-09 18:06] LABS: COVID-19 Test Negative (Negative); IDNOW Serial# 16C4AD1C; Influenza A Negative (Negative); Influenza B2 Negative (Negative)
[2022-03-09 18:07] LABS: Alanine Aminotransferase 24 U/L (0-31); Alkaline Phosphatase 68 U/L (39-117); Anion Gap 13 (12-20); Aspartate Amino Transferase 22 U/L (5-31); Bilirubin Direct 0.3 mg/dL (0.0-0.5); Bilirubin Total 0.8 mg/dL (0.0-1.0); Blood Urea Nitrogen 13 mg/dL (9-16); Calcium 9.4 mg/dL (8.4-10.2); Carbon Dioxide 30 mmol/L (22-29); Chloride 99 mmol/L (96-108); Estimated Glomerular Filt Rate > 60; Glucose Random 98 mg/dL (60-115); Lipase 42 U/L (8-78); Magnesium 1.5 mg/dL (1.6-2.6); Potassium 3.4 mmol/L (3.3-5.1); Sodium 139 mmol/L (135-145); Total Protein 6.5 g/dL (6.5-8.0)
[2022-03-09 18:09] LABS: Eosinophils Absolute Auto 0.1 X10*3/uL (0.0-0.4); Eosinophils Percent Auto 1.5 % (0-4); Monocytes Percent Auto 9.4 % (2-11); PLT CLUMP 1; SCAN SMEAR FLAG 1
[2022-03-09 18:10] LABS: B Type Natriuretic Peptide 87 pg/mL (<100); Troponin-I High Sensitivity 19.4 ng/L (<3.5-17.0)
[2022-03-09 18:11] LABS: Basophils Percent Auto 0.2 % (0-2); Hematocrit 37.8 % (37.0-47.0); Hemoglobin 13.4 g/dl (12.0-16.0); Imm Gran Abs Auto 0.01 X10*3/uL (0.00-0.03); Imm Gran Pct Auto 0.2 % (0.0-0.4); Lymphocytes Percent Auto 21.4 % (20-40); MANUAL DIFF FLAG SCAN; Mean Corpuscular HGB Conc 35.4 g/dl (31.0-35.0); Mean Corpuscular Hemoglobin 31.6 pg (27.0-33.0); Mean Corpuscular Volume 89.2 fL (80.0-98.0); Mean Platelet Volume 10.9 fL (9.4-12.3); Monocytes Absolute Auto 0.5 X10*3/uL (0.1-1.2); Neutrophils Absolute Auto 3.2 x10*3/uL (2.0-8.3); Neutrophils Percent Auto 67.3 % (45-73); Red Blood Count 4.24 X10*6/uL (4.20-5.50); Red Cell Distribution Width 11.7 % (11.0-16.0)
[2022-03-09] MEDS: Metoprolol Tartrate 100 MG TABLET PO (18:17)
[2022-03-09 18:37] LABS: White Blood Count 4.8 X10*3/uL (4.8-10.8)
[2022-03-09 18:39] LABS: SLIDE REVIEW VERIFIED
[2022-03-09] MEDS: cefTRIAXone sodium 1 GM in 0.9 % Sodium Chloride 50 ML IV (18:44)
[2022-03-09] MEDS: Magnesium Oxide 400 MG TABLET PO (18:44)
[2022-03-09] MEDS: Azithromycin 500 MG in 0.9 % Sodium Chloride 250 ML 125 MG IV (20:09)
[2022-03-09] MEDS: Metoclopramide HCl 10 MG/2 ML VIAL IVPUSH (20:14)
--- NOTE | 2022-03-09 20:15 | PC.NURSE ---
it was noted that patient only had one set of blood cultures drawn prior to ceftriaxone administraion. PA made aware and stated that we do not need second set of cultures
[2022-03-09 21:03] LABS: Troponin-I High Sensitivity 20.1 ng/L (<3.5-17.0)
== END 2022-03-09 23:02 | disposition home or self-care (01) ==
PROVIDERS: Physician Assistant; Emergency Provider Student in an Organized Health Care Education/Training Program; PCP Internal Medicine
DX: J18.9 Pneumonia, unspecified organism (principal); N39.0 Urinary tract infection, site not specified; R51.9 Headache, unspecified; I10 Essential (primary) hypertension; Z79.899 Other long term (current) drug therapy; Z20.822 Contact with and (suspected) exposure to COVID-19
CPT/HCPCS: 36415; 70450; 71045; 80048; 80076; 81001; 83605; 83690; 83735; 83880; 84484; 85025; 87040; 87086; 87502; 87635; 93005; 96361; 96365; 96367; 96375; 99284; J0456; J0696; J2405; J2765

== ENCOUNTER 2022-04-01 10:49 | Emergency (ER) | payer MEDICARE, SELFPAY ==
[2022-04-01 10:55] VITALS: BP 150/86; PULSE 74; O2SAT 98
[2022-04-01 10:57] VITALS: BP 150/65; PULSE 75; RESP 18; TEMP 36.6; O2SAT 97; BMI 22.4
[2022-04-01 11:28] LABS: Appearance Urine CLEAR; Color Urine YELLOW; Glucose Urine UA NEG (NEG); Leukocyte Esterase Urine NEG (NEG); Nitrite Urine NEG (NEG); Urine Blood NEG (NEG); Urine Ketones NEG (NEG); Urine Protein NEG (NEG-TRACE)
--- NOTE | 2022-04-01 13:00 | ED.FEMALEGU ---
HPI - Female Genitourinary General Chief complaint: Urogenital-Female Stated complaint: NAUSEA Time Seen by Provider: 04/01/22 11:06 Related Data Home Medications Medication Instructions Recorded Confirmed potassium chloride 10 mEq 10 meq PO Q48H 09/19/20 10/13/21 capsule,extended release pravastatin 20 mg tablet 20 mg PO DAILY 09/19/20 10/13/21 benazepril 10 mg tablet 1 tab PO DAILY 08/31/21 10/13/21 gabapentin 300 mg capsule 600 mg PO TID 08/31/21 10/13/21 hydrochlorothiazide 25 mg tablet 1 tab PO DAILY 10/13/21 10/13/21 Previous Rx's Medication Instructions Recorded cyclobenzaprine 5 mg tablet 5 mg PO TID PRN #30 tab 10/14/21 hydrocodone 5 mg-acetaminophen 300 1 tab PO Q6H PRN #20 tab 10/14/21 mg tablet azithromycin 250 mg tablet See Rx Instructions .ROUTE 03/09/22 .COMPLEX #6 tab cefpodoxime 200 mg tablet 200 mg PO BID 7 Days #14 tab 03/09/22 cefdinir 300 mg capsule 300 mg PO BID 7 Days #14 cap 04/01/22 phenazopyridine 100 mg tablet 100 mg PO TID PRN #6 tab 04/01/22 (Pyridium) Allergies Allergy/AdvReac Type Severity Reaction Status Date / Time promethazine [PROMETHAZINE] AdvReac Unknown AGITATION Verified 08/31/21 09:55 [facility] Past Medical History Medical History Arthritis of left knee Breast cancer Hyperlipidemia Hypertension Left knee pain Surgical History History of appendectomy History of cholecystectomy History of hysterectomy History of lumpectomy Social History Social History Household Members: Spouse and Children Housing: House Alcohol intake: never Patient Tobacco Use Status: Never used Tobacco Advance Directives: No Advance Directives Information Provided: No service: No Current occupational status: retired Current occupation: [employer] Physical Exam Vital Signs: Vital Signs: Last Vital Signs Temp 98 F 04/01/22 10:57 Pulse 75 04/01/22 10:57 Resp 18 04/01/22 10:57 BP 150/65 H 04/01/22 10:57 Pulse Ox 97 04/01/22 10:57 BMI result Body Mass Index 22.4 Course Course Course Narrative: 86-year-old female with recurrent UTIs and as per daughter this is been going on for 3 years and her mother has been seen by urologist. She recently finished a course ciprofloxacin but states that the course of antibiotics was interrupted. Patient states she has continued to have of suprapubic discomfort similar to the previous times. The daughter is very is insistent that her mother not leave the emergency room without antibiotics and will be provided with a prescription as well as pyridium and Tylenol for symptom relief. MDM - Female Genitourinary Lab Data Labs: Lab Results 04/01/22 Range/Units 11:23 Urine Color YELLOW Urine Appearance CLEAR Urine pH 7.0 (5.0-8.0) Ur Specific [place] 1.020 (1.005-1.025) Urine Protein NEG (NEG-TRACE) MG/DL Urine Glucose (UA) NEG (NEG) MG/DL Urine Ketones NEG (NEG) MG/DL Urine Blood NEG (NEG) Urine Nitrite NEG (NEG) Ur Leukocyte Esterase NEG (NEG) Discharge Plan Discharge Clinical Impression: UTI (urinary tract infection), Cystitis Patient Disposition: Home, Self-Care Instructions: Urinary Tract Infection in Older Adults (ED) Additional Instructions: 1. You are being placed on antibiotics although your urinalysis is negative for evidence of infection. This is at your request. 2. You are also being placed on a medication that helps out with bladder irritation and it will change the color of your urine. 3. I highly recommend follow-up with your primary care provider as well as your urologist for further evaluation and follow-up of the urine culture from today. Return to the ER for any worsening of symptoms. Prescriptions: New cefdinir 300 mg capsule 300 mg PO BID 7 Days Qty: 14 0RF phenazopyridine [Pyridium] 100 mg tablet 100 mg PO TID PRN (Reason: pain) Qty: 6 0RF No Action cefpodoxime 200 mg tablet 200 mg PO BID 7 Days Qty: 14 0RF Rx Instructions: must administer with a meal/food azithromycin 250 mg tablet See Rx Instructions .ROUTE .COMPLEX Qty: 6 0RF Rx Instructions: take 500 mg today (day 1), then 250 mg for 4 days (days 2-5) gabapentin 300 mg capsule 600 mg PO TID 0RF benazepril 10 mg tablet 1 tab PO DAILY 0RF hydrochlorothiazide 25 mg tablet 1 tab PO DAILY 0RF cyclobenzaprine 5 mg Tablet 5 mg PO TID PRN (Reason: back pain) Qty: 30 0RF hydrocodone-acetaminophen 5-300 mg tablet 1 tab PO Q6H PRN (Reason: severe pain (scale score 7-10)) Qty: 20 0RF potassium chloride 10 mEq capsule, extended release 10 meq PO Q48H 0RF pravastatin 20 mg tablet 20 mg PO DAILY 0RF
[2022-04-01] MEDS: Acetaminophen 325 MG TABLET 975 MG PO (13:16)
[2022-04-01] MEDS: Phenazopyridine HCL 200 MG TABLET PO (13:16)
[2022-04-01 13:26] VITALS: PULSE 78; RESP 18; O2SAT 98
== END 2022-04-01 13:27 | disposition home or self-care (01) ==
PROVIDERS: Emergency Provider Student in an Organized Health Care Education/Training Program
DX: N30.90 Cystitis, unspecified without hematuria (principal); I10 Essential (primary) hypertension; E78.5 Hyperlipidemia, unspecified; Z87.440 Personal history of urinary (tract) infections
CPT/HCPCS: 81003; 99283

== ENCOUNTER 2024-04-02 12:46 | Emergency (ER) | payer MEDICARE, SELFPAY ==
--- NOTE | ~2024-04-02 | CT_ITS ---
EXAMINATION: CT HEAD WITHOUT CONTRAST CLINICAL INFORMATION: Headache and vision changes. COMPARISON: CT head dated 03/09/2022. TECHNIQUE: Contiguous axial imaging was performed from the skull base to vertex without intravenous administration of contrast. This CT examination was performed using dose optimization techniques as appropriate, variously including the following: *Automated exposure control *Adjustment of mA and/or kV according to patient size (this includes techniques or standardized protocols for targeted exams where dose is matched to indication/reason for exam; i.e. extremities or head) *Use of iterative reconstruction technique DLP: 575 mGy-cm FINDINGS: There is no acute intracranial hemorrhage or evidence of territorial infarction. No abnormal mass effect or midline shift is seen. Lyons to white matter differentiation is well preserved. There is mild patchy low attenuation change in the periventricular white matter spaces. The ventricles are normal in size. No extra-axial fluid collections are identified. The calvarium and scalp soft tissues are normal. The middle ear cavity and mastoid air cells are clear. There is mild bilateral ethmoid and sphenoid sinusitis. CT/CT head/brain wo IV con IMPRESSION: 1. No acute intracranial pathology. 2. There is mild patchy low attenuation change in the periventricular white matter spaces, commonly associated with chronic microangiopathy. 3. There is mild bilateral ethmoid and sphenoid sinusitis.
--- NOTE | ~2024-04-02 | CT_ITS ---
EXAMINATION: CT ABDOMEN AND PELVIS WITH CONTRAST CLINICAL INFORMATION: UTI not improving despite atbx abd pain COMPARISON: CT abdomen pelvis September 08, 2019 TECHNIQUE: Multidetector volumetric images were obtained from the superior aspect of the liver through the pubic symphysis following administration 85 mL of Omnipaque 350 intravenous contrast. Sagittal and coronal reformatted images were obtained on the technologist's workstation. Oral contrast: No This CT examination was performed using dose optimization techniques as appropriate, variously including the following: *Automated exposure control *Adjustment of mA and/or kV according to patient size (this includes techniques or standardized protocols for targeted exams where dose is matched to indication/reason for exam; i.e. extremities or head) *Use of iterative reconstruction technique DLP: 430 mGy-cm FINDINGS: LUNG BASES: Lung bases normally aerated. No pleural effusion. Coronary calcification present. LIVER, GALLBLADDER, AND BILIARY TREE: The liver is normal in size, shape, and attenuation. No focal hepatic lesion or biliary ductal dilatation is present. Hepatic cyst left lobe of liver measuring 2.4 cm. Gallbladder is absent. Dilatation of the extrahepatic CBD to a diameter of 1 cm. This is chronic unchanged since CAT scan September 08, 2019. No calcified stone in the ducts. PANCREAS: There is a small calcification of the head of the pancreas this does not appear to be associated with the pancreatic or bile duct, image 280/693 series 4. There is No inflammation of the pancreas or peripancreatic fat. SPLEEN: Unremarkable. ADRENAL GLANDS: Unremarkable. KIDNEYS AND URETERS: Moderate dilatation of calyces and fullness of the renal pelvis of both kidneys. No hydroureter. No renal or ureteral calculus. No renal mass. Normal enhancement of the cortex of both kidneys without evidence of edema. BLADDER: Bladder is moderately full. No calculus or mass or inflammation. GASTROINTESTINAL TRACT: There are scattered diverticula of the colon. There is no diverticulitis. There is no bowel wall thickening /edema. There is no bowel obstruction. There is a large volume of stool in the colon. The appendix is nonvisualized . The small bowel loops are unremarkable. The stomach is normal. There is small hiatal hernia. ABDOMINAL WALL: No significant hernia is appreciated. LYMPH NODES: Normal. VASCULAR: Scattered vascular wall calcifications of aorta and iliac arteries. There is no aneurysm. PELVIC VISCERA: Status post hysterectomy. OSSEOUS STRUCTURES: Advanced multilevel degenerative spondylosis spine. Dextroscoliosis lumbar spine. CT/CT abdomen pelvis w IV con IMPRESSION: 1. No acute abnormality CT scan abdomen pelvis. 2. Moderate dilatation of calyces and fullness of the renal pelvis of both kidneys. No hydroureter. No renal or ureteral calculus. 3. Status post cholecystectomy. 4. Diverticulosis of colon. No acute abnormality of the bowel. Large volume of stool in the colon. Fleischner guidelines were followed.
--- NOTE | 2024-04-02 12:48 | ECG_ITS ---
Test Reason : weakness Blood Pressure : / mmHG Vent. Rate : 066 BPM Atrial Rate : 066 BPM P-R Int : 188 ms QRS Dur : 124 ms QT Int : 440 ms P-R-T Axes : 045 -73 015 degrees QTc Int : 461 ms Normal sinus rhythm Right bundle branch block Left anterior fascicular block Bifascicular block Abnormal ECG When compared with ECG of 09-MAR-2022 17:12, T wave inversion less evident in Anterior leads Referred By: Marcy Holland Electronically Signed By:YOHANA BUSTAMANTE MD
--- NOTE | 2024-04-02 12:53 | ED_ITS ---
HPI - General Adult General Chief complaint: Neuro Symptoms/Deficit Stated complaint: GOMEZ W/VISION CHANGES FROM URGENT CARE PER EMS Time Seen by Provider: 04/02/24 12:48 Source: patient and EMS Mode of arrival: EMS Limitations: other (poor historian ) History of Present Illness ED Provider: Kishor LEMOS HPI narrative: This is an 88-year-old female history of breast cancer, hypertension, hyperlipidemia, arthritis recently diagnosed with UTI and put on atbx presenting to the emergency department with complaints of fatigue, malaise, myalgia, burning on urination, lower abdominal discomfort times a about a week worsening and headaches and blurred vision for the past 2 weeks. Patient reports she just has not been feeling well. She reports she has been put on multiple antibiotics over the past month however her symptoms persist. Patient denies fevers, chills, chest pain, shortness of breath, nausea, vomiting, trauma to head. Related Data Home Medications ?Medication ?Instructions ?Recorded ?Confirmed potassium chloride 10 mEq 10 meq PO Q48H 09/19/20 10/13/21 capsule,extended release pravastatin 20 mg tablet 20 mg PO DAILY 09/19/20 10/13/21 benazepril 10 mg tablet 1 tab PO DAILY 08/31/21 10/13/21 gabapentin 300 mg capsule 600 mg PO TID 08/31/21 10/13/21 hydrochlorothiazide 25 mg tablet 1 tab PO DAILY 10/13/21 10/13/21 Previous Rx's ?Medication ?Instructions ?Recorded cyclobenzaprine 5 mg tablet 5 mg PO TID PRN back pain #30 tabs 10/14/21 hydrocodone 5 mg-acetaminophen 300 1 tab PO Q6H PRN severe pain 10/14/21 mg tablet (scale score 7-10) #20 tabs azithromycin 250 mg tablet See Rx Instructions PO .COMPLEX #6 03/09/22 tabs cefpodoxime 200 mg tablet 200 mg PO BID 7 days #14 tabs 03/09/22 cefdinir 300 mg capsule 300 mg PO BID 7 days #14 caps 04/01/22 ondansetron 4 mg disintegrating 4 mg PO Q8H PRN nausea and 04/01/22 tablet vomiting #7 tabs phenazopyridine 100 mg tablet 100 mg PO TID PRN pain 6 doses #6 06/05/22 (Pyridium) tabs labetalol 100 mg tablet 100 mg PO BID #60 tabs 04/02/24 Allergies Allergy/AdvReac Type Severity Reaction Status Date / Time promethazine [PROMETHAZINE] AdvReac Unknown AGITATION Verified 04/02/24 12:58 Review of Systems 2 Review of Systems: Yes all other systems are reviewed and are negative [facility] Past Medical History Attestation statement: The following information was validated with the patient. Source: old records reviewed and nursing notes reviewed Medical History Arthritis of left knee Breast cancer Hyperlipidemia Hypertension Left knee pain Surgical History History of appendectomy History of cholecystectomy History of hysterectomy History of lumpectomy Social History Social History Household Members: Spouse and Children Housing: House Alcohol intake: never Patient Tobacco Use Status: Never used Tobacco Smoked in Last 30 Days: No Use of substances other than those prescribed or required for medical reasons: No Advance Directives: Yes Advance Directives Information Provided: Yes Advance Directives on File: No service: No Current occupational status: retired Current occupation: [employer] Physical Exam ED Vital Signs: Vital Signs - 24 hr 04/02/24 12:54 04/02/24 13:25 04/02/24 16:20 Temperature 97.7 F 97.6 F Pulse Rate 74 68 74 Respiratory Rate 16 19 19 Blood Pressure 178/88 H 139/74 Pulse Oximetry 100 95 Oxygen Delivery Method Room Air Room Air BMI result Body Mass Index 26.2 vss Appearance: Alert.? Oriented X3.? No acute distress.? Head: Normocephalic, atraumatic, no step-offs or deformities Eyes: Pupils equal, round and reactive to light.? Neck: Normal inspection.? Neck supple.? CVS: Normal heart rate and rhythm.? Pulses normal.? Respiratory: No respiratory distress.? Breath sounds normal.? Abdomen: Soft and nontender.? Skin: Skin warm and dry.? Normal skin color.? Normal skin turgor.? Extremities: No lower extremity edema.? No calf ttp. Global weakness. Back: No midline tenderness, no C-spine tenderness, full range of motion, no CVA tenderness bilaterally Neuro: Oriented X 3.? No motor deficit.? No sensory deficit. CN 2-12 intact. Normal finger to nose, heel to martinez. Negative romberg and pronator drift. Course Reevaluation(s) Reevaluation #1: CBC unremarkable. Chemistry with no acute electrolyte abnormalities requiring intervention. Patient has a PTT elevated 37.9. UA with no infection. CT abdomen pelvis pending. CT head pending. Time: 16:04 Reevaluation #2: Sign out to [facility] Time: 16:10 Reevaluation #3: Headache and dizziness are much improved. Her blood pressure is much improved as well, 139 systolic. Home medications have been reviewed. She just did recently start isosorbide mononitrate which is when her headache started. This is most likely the etiology of her headache. Her CT of her head was unremarkable for acute abnormalities, as was her CT of her head. Will plan to stop the isosorbide and start her on labetalol 100 mg b.i.d.. Her blood pressure was 190 this morning. She will monitor her blood pressure at home and follow-up with the primary care doctor for further management. She was given return precautions and is stable for discharge home. Patient and daughter agree with plan all questions were answered. Time: 18:29 Medications Administered Discontinued Medications Generic Name Dose Route Start Last Admin Trade Name Surjit PRN Reason Stop Dose Admin Acetaminophen 975 mg 04/02/24 16:05 04/02/24 16:22 Acetaminophen 325 Mg Tablet PO 04/02/24 16:06 975 mg ONCE ONE Administration Iohexol 100 ml 04/02/24 14:22 04/02/24 14:22 Iohexol 350 Mg/Ml 100 Ml Infus..Btl IV 04/02/24 14:23 85 ml ONCE ONE Administration Medical Decision Making Medical Decision Making [facility] Narrative: 1257 88 yo f presents w/ fatigue, malaise, myalgias, uti sx X 1 weeks currently on cefdinir not feeling better. And headache and intermittent blurred vision X 2 weeks PE supra pubic discomfort. Global weakness NIHSS-0 ( EMS did call us in as a stroke alert however I do not feel as though this is a stroke symptoms have been ongoing for almost 2 weeks, no focal neuro deficits, normal [id number], [id number].) History and physical exam concerning for possible electrolyte abnormalities versus worsening UTI versus cystitis. Unlikely intracranial hemorrhage, stroke, posterior stroke, meningitis, encephalitis. Plan labs, imaging, urine Differential Diagnosis Differential Diagnoses: The differential diagnosis associated with the presentation includes History and physical exam concerning for possible electrolyte abnormalities versus worsening UTI versus cystitis. Unlikely intracranial hemorrhage, stroke, posterior stroke, meningitis, encephalitis. Admission/Observation Consideration of admission/observation: Escalation of care including admission/observation considered Lab Data 04/02/24 13:17 04/02/24 13:17 Labs: Lab Results 04/02/24 04/02/24 04/02/24 Range/Units 13:17 13:20 13:30 WBC 6.0 (4.8-10.8) X10*3/uL RBC 4.32 (4.20-5.50) X10*6/uL Hgb 13.8 (12.0-16.0) g/dl Hct 39.9 (37.0-47.0) % MCV 92.4 (80.0-98.0) fL MCH 31.9 (27.0-33.0) pg MCHC 34.6 (31.0-35.0) g/dl RDW 12.0 (11.0-16.0) % Plt Count 199 (160-400) X10*3/uL MPV 9.1 L (9.4-12.3) fL Immature Gran % (Auto) 0.5 H (0.0-0.4) % Neut % (Auto) 69.5 (45-73) % Lymph % (Auto) 17.7 L (20-40) % [place] % (Auto) 6.8 (2-11) % Eos % (Auto) 4.8 H (0-4) % Baso % (Auto) 0.7 (0-2) % Lymph # (Auto) 1.1 L (1.2-4.9) X10*3/uL [place] # (Auto) 0.4 (0.1-1.2) X10*3/uL Eos # (Auto) 0.3 (0.0-0.4) X10*3/uL Baso # (Auto) 0.0 (0.0-0.2) X10*3/uL Abs Immat Gran (auto) 0.03 (0.00-0.03) X10*3/uL Absolute Neuts (auto) 4.2 (2.0-8.3) x10*3/uL Absolute Nucleated RBC 0.000 (0.0-0.012) X10*3/uL Nucleated RBC % (auto) 0.0 (0.0-0.2) /100WBC PT 11.5 (11.1-13.3) SEC INR 0.9 (0.9-1.1) APTT 37.9 H (26.0-36.8) SEC Sodium 133 L (135-145) mmol/L Potassium 4.3 (3.3-5.1) mmol/L Chloride 99 (96-108) mmol/L Carbon Dioxide 28 (22-29) mmol/L Anion Gap 10 L (12-20) BUN 12 (9-16) mg/dL Creatinine 0.72 (0.5-1.4) mg/dL Estim Creat Clear Calc 49.6 Estimated GFR > 60 POC Glucose 116 H (60-115) mg/dL Random Glucose 118 H (60-115) mg/dL Lactic Acid 1.1 (0.5-2.0) mmol/L Calcium 9.3 (8.4-10.2) mg/dL Total Creatine Kinase 58 (26-140) U/L Troponin I High Sens 7.2 (<3.5-17.0) ng/L Urine Color Yellow Urine Appearance Clear Urine pH 6.5 (5.0-9.0) Ur Specific [place] <= 1.005 (1.005-1.025) Urine Protein Negative (Neg-Trace) mg/dL Urine Glucose (UA) Negative (Negative) mg/dL Urine Ketones Negative (Negative) mg/dL Urine Blood Negative (Negative) Urine Nitrite Negative (Negative) Ur Leukocyte Esterase Negative (Negative) Critical Care Time Critical Care Time Critical Care Time: No Discharge Plan Discharge Clinical Impression: Headache Qualifiers: Headache type: unspecified Headache chronicity pattern: unspecified pattern I ntractability: not intractable Qualified Code(s): R51.9 - Headache, unspecified Hypertension Qualifiers: Hypertension type: unspecified Qualified Code(s): I10 - Essential (primary) hypertension Patient Disposition: Home, Self-Care Instructions: Acute Headache (DC), Hypertension (ED) Additional Instructions: Your CT scan of your head and abdomen did not show any acute abnormalities. Your CT of the abdomen did show significant amount of stool in the colon, recommend MiraLax, senna, Colace at home. Your isosorbide may be the cause of your symptoms. Recommend stopping this medication. Start the new blood pressure medication as directed. Continue to monitor blood pressure at home and follow-up with your doctor for further management of your blood pressure. If you develop new or worsening symptoms call 911 or come back to the ER for further evaluation. Prescriptions: New labetalol 100 mg tablet 100 mg PO BID Qty: 60 0RF No Action cefpodoxime 200 mg tablet 200 mg PO BID 7 Days Qty: 14 0RF Rx Instructions: must administer with a meal/food azithromycin 250 mg tablet See Rx Instructions .ROUTE .COMPLEX Qty: 6 0RF Rx Instructions: take 500 mg today (day 1), then 250 mg for 4 days (days 2-5) gabapentin 300 mg capsule 600 mg PO TID benazepril 10 mg tablet 1 tab PO DAILY hydrochlorothiazide 25 mg tablet 1 tab PO DAILY cyclobenzaprine 5 mg Tablet 5 mg PO TID PRN (Reason: back pain) Qty: 30 0RF hydrocodone-acetaminophen 5-300 mg tablet 1 tab PO Q6H PRN (Reason: severe pain (scale score 7-10)) Qty: 20 0RF cefdinir 300 mg capsule 300 mg PO BID 7 Days Qty: 14 0RF phenazopyridine [Pyridium] 100 mg tablet 100 mg PO TID PRN (Reason: pain) Qty: 6 0RF ondansetron 4 mg tablet,disintegrating 4 mg PO Q8H PRN (Reason: nausea and vomiting) Qty: 7 0RF potassium chloride 10 mEq capsule, extended release 10 meq PO Q48H pravastatin 20 mg tablet 20 mg PO DAILY Print Language: Macedonian
[2024-04-02 12:54] VITALS: BP 174/90; BP 178/88; PULSE 70; PULSE 74; RESP 16; TEMP 36.5; O2SAT 100; O2SAT 99; BMI 26.2
[2024-04-02 13:22] LABS: MANUAL DIFF FLAG NO
[2024-04-02 13:24] LABS: Basophils Percent Auto 0.7 % (0-2); Eosinophils Absolute Auto 0.3 X10*3/uL (0.0-0.4); Eosinophils Percent Auto 4.8 % (0-4); Hematocrit 39.9 % (37.0-47.0); Hemoglobin 13.8 g/dl (12.0-16.0); Imm Gran Abs Auto 0.03 X10*3/uL (0.00-0.03); Imm Gran Pct Auto 0.5 % (0.0-0.4); Lymphocytes Absolute Auto 1.1 X10*3/uL (1.2-4.9); Lymphocytes Percent Auto 17.7 % (20-40); Mean Corpuscular HGB Conc 34.6 g/dl (31.0-35.0); Mean Corpuscular Hemoglobin 31.9 pg (27.0-33.0); Mean Corpuscular Volume 92.4 fL (80.0-98.0); Mean Platelet Volume 9.1 fL (9.4-12.3); Monocytes Absolute Auto 0.4 X10*3/uL (0.1-1.2); Monocytes Percent Auto 6.8 % (2-11); Neutrophils Absolute Auto 4.2 x10*3/uL (2.0-8.3); Neutrophils Percent Auto 69.5 % (45-73); Platelet Count 199 X10*3/uL (160-400); Red Blood Count 4.32 X10*6/uL (4.20-5.50)
[2024-04-02 13:25] VITALS: PULSE 68; RESP 19
[2024-04-02 13:25] LABS: Glucose, Whole Blood 116 mg/dL (60-115)
[2024-04-02 13:30] LABS: INTERNATIONAL NORM RATIO 0.9 (0.9-1.1); Prothrombin Time 11.5 SEC (11.1-13.3)
[2024-04-02 13:32] LABS: Partial Thromboplastin Time 37.9 SEC (26.0-36.8)
[2024-04-02 13:33] LABS: Lactic Acid 1.1 mmol/L (0.5-2.0)
[2024-04-02 13:38] LABS: Anion Gap 10 (12-20); Blood Urea Nitrogen 12 mg/dL (9-16); Calcium 9.3 mg/dL (8.4-10.2); Carbon Dioxide 28 mmol/L (22-29); Chloride 99 mmol/L (96-108); Creatinine Clr Calc Pharmacy 49.6; Estimated Glomerular Filt Rate > 60; Glucose Random 118 mg/dL (60-115); Potassium 4.3 mmol/L (3.3-5.1); Sodium 133 mmol/L (135-145)
[2024-04-02 13:38] LABS: Appearance Urine Clear; Color Urine Yellow; Glucose Urine UA Negative (Negative); Leukocyte Esterase Urine Negative (Negative); Nitrite Urine Negative (Negative); PH 6.5 (5.0-9.0); Specific Gravity - Urine <= 1.005 (1.005-1.025); Urine Blood Negative (Negative); Urine Ketones Negative (Negative); Urine Protein Negative (Neg-Trace)
[2024-04-02 13:45] LABS: Troponin-I High Sensitivity 7.2 ng/L (<3.5-17.0)
--- NOTE | 2024-04-02 13:51 | PC.NURSE ---
Pt presents to ED via EMS for headache, changes in vision, general weakness and recurrent UTIs. Reports headache is front and back of head, blurred vision in right eye, and general weakness X10 days, intermittent. Pt reports recurrent UTIs for years, currently on day 3 of ABX. Alert and oriented, breathing even and unlabored, skin warm and dry. Pt neg for unilateral weakness, slurred speech, facial droop. Pain in head 5/10. NSR on bedside surveillance monitor, hypertensive.
[2024-04-02] MEDS: iohexoL 350 MG/ML 100 ML INFUS..BTL IV (14:22)
[2024-04-02 16:20] VITALS: BP 139/74; PULSE 74; RESP 19; TEMP 36.4; O2SAT 95
[2024-04-02] MEDS: Acetaminophen 325 MG TABLET 975 MG PO (16:22)
[2024-04-02 18:54] VITALS: BP 135/77; PULSE 64; RESP 18; TEMP 36.5; O2SAT 96
[2024-04-02 19:01] VITALS: BP 135/77; PULSE 64; RESP 18; TEMP 36.5; O2SAT 96
== END 2024-04-02 19:01 | disposition home or self-care (01) ==
PROVIDERS: Physician Assistant; Emergency Provider Emergency Medicine; PCP Internal Medicine
DX: H53.9 Unspecified visual disturbance (principal); I45.10 Unspecified right bundle-branch block; R51.9 Headache, unspecified; I10 Essential (primary) hypertension; R10.30 Lower abdominal pain, unspecified; R79.89 Other specified abnormal findings of blood chemistry; Z79.899 Other long term (current) drug therapy
CPT/HCPCS: 36415; 70450; 74177; 80048; 81003; 82550; 82947; 83605; 84484; 85025; 85610; 85730; 87040; 93005; 99285; Q9967

== ENCOUNTER → 2024-04-02 12:48 | Outpatient (BNV) | payer MEDICARE, SELFPAY | PROVIDERS: Emergency Provider Emergency Medicine; PCP Internal Medicine; Visit Provider Internal Medicine Cardiovascular Disease | DX: I45.2 Bifascicular block (principal); R94.31 Abnormal electrocardiogram [ECG] [EKG] | CPT/HCPCS: 93010 ==